=== PATIENT | female | born 1965 | race Caucasian/White ===

== ENCOUNTER → 2017-10-01 09:45 | Outpatient (CLI) | payer MEDICARE ==
[2017-10-01 10:18] LABS: BASOPHILS 0.8 % (0-2); EOSINOPHILS 3.4 % (0-7); HEMATOCRIT 45.7 % (36.0-48.0); HEMOGLOBIN 14.9 g/dL (12-16); IMMATURE GRANULOCYTES 0.4 % (0-5); LYMPHOCYTES 26.8 % (15-50); MCH 28.4 pg (26.0-34.0); MCHC 32.6 g/dL (31.0-37.0); MEAN PLATELET VOLUME 9.9 fL (7.4-10.4); MONOCYTES 6.9 % (2-11); NEUTROPHILS 61.7 % (40-80); PLATELET COUNT 355 10x3/uL (130-400); RBC 5.25 10x6/uL (4.00-5.40); WBC 14.3 10x3/uL (4.8-10.8)
[2017-10-01 10:44] LABS: ALBUMIN 3.5 g/dL (3.4-5.0); ANION GAP 18.1 mmol/L (8-16); BILIRUBIN - TOTAL 0.19 mg/dL (0.2-1.3); CALCIUM 8.8 mg/dL (8.5-10.1); CARBON DIOXIDE 22.3 mmol/L (21.0-32.0); CHOL - HDL RATIO 6.3 ratio (2.3-4.1); CREATININE - SERUM 1.1 mg/dL (0.6-1.3); POTASSIUM - SERUM 4.4 mmol/L (3.5-5.1); PROTEIN - SERUM 7.6 g/dL (6.4-8.2); T4 THYROXIN - FREE 0.84 ng/dL (0.76-1.46); T4 THYROXINE 7.7 ug/dL (4.7-13.3); THYROID STIMULATING HORMONE 8.73 uIU/mL (0.36-3.74)
== END | disposition home or self-care (01) ==
LOC: D.LAB 09-29 08:00
PROVIDERS: Family Medicine
DX: I10 Essential (primary) hypertension (principal); R10.9 Unspecified abdominal pain; E78.9 Disorder of lipoprotein metabolism, unspecified; E55.9 Vitamin D deficiency, unspecified; E11.9 Type 2 diabetes mellitus without complications; R11.2 Nausea with vomiting, unspecified; E03.9 Hypothyroidism, unspecified; E53.8 Deficiency of other specified B group vitamins

== ENCOUNTER → 2018-06-04 12:15 | Outpatient (CLI) | payer MEDICARE | END | disposition home or self-care (01) | LOC: D.RAD 12:15 | DX: M25.511 Pain in right shoulder (principal) ==

== ENCOUNTER → 2018-10-25 16:42 | Outpatient (CLI) | payer MEDICARE ==
[2018-10-25 17:41] LABS: BASOPHILS 0.7 % (0-2); EOSINOPHILS 3.9 % (0-7); HEMATOCRIT 43.3 % (36.0-48.0); HEMOGLOBIN 14.2 g/dL (12-16); IMMATURE GRANULOCYTES 0.2 % (0-5); LYMPHOCYTES 26.3 % (15-50); MCHC 32.8 g/dL (31.0-37.0); MCV 88.4 fL (80.0-100.0); MEAN PLATELET VOLUME 10.4 fL (7.4-10.4); MONOCYTES 5.8 % (2-11); NEUTROPHILS 63.1 % (40-80); PLATELET COUNT 323 10x3/uL (130-400); RDW 14.3 % (11.5-14.5); WBC 10.5 10x3/uL (4.8-10.8)
[2018-10-25 18:22] LABS: ALBUMIN 3.7 g/dL (3.4-5.0); ALKALINE PHOSPHATASE 118 U/L (46-116); ALT (SGPT) 21 U/L (10-68); BILIRUBIN - TOTAL 0.38 mg/dL (0.2-1.3); CALC OSMOLALITY 279 mosm/kg (275-300); CALCIUM 8.8 mg/dL (8.5-10.1); CARBON DIOXIDE 25.5 mmol/L (21.0-32.0); CHLORIDE - SERUM 103 mmol/L (98-107); CHOL - HDL RATIO 7.5 ratio (2.3-4.1); CHOLESTEROL, TOTAL 284 mg/dL (0-200); GLUCOSE 98 mg/dL (74-106); HDL CHOLESTEROL 38 mg/dL (32-96); POTASSIUM - SERUM 4.6 mmol/L (3.5-5.1); PROTEIN - SERUM 7.1 g/dL (6.4-8.2); SODIUM 139 mmol/L (136-145); T4 THYROXIN - FREE 0.89 ng/dL (0.76-1.46); THYROID STIMULATING HORMONE 3.43 uIU/mL (0.36-3.74); TRIGLYCERIDE 488 mg/dL (30-200); UREA NITROGEN 19 mg/dL (7-18); eGFR NON AFRICAN AMERICAN 61 mL/min (90-120)
[2018-10-25 18:45] LABS: ERYTHROCYTE SEDIMENTATION RATE 21 mm/hr (0-30)
== END | disposition home or self-care (01) ==
LOC: D.LABREF 16:42
PROVIDERS: ATTEND Family Medicine
DX: E03.9 Hypothyroidism, unspecified (principal); E55.9 Vitamin D deficiency, unspecified; E53.8 Deficiency of other specified B group vitamins; E11.9 Type 2 diabetes mellitus without complications; M79.7 Fibromyalgia

== ENCOUNTER → 2019-01-12 14:07 | Outpatient (CLI) | payer MEDICARE ==
[2019-01-12 15:30] LABS: T4 THYROXINE 12.4 ug/dL (4.7-13.3); THYROID STIMULATING HORMONE 0.19 uIU/mL (0.36-3.74)
== END | disposition home or self-care (01) ==
LOC: D.LABREF 14:07
PROVIDERS: ATTEND Family Medicine
DX: E11.9 Type 2 diabetes mellitus without complications (principal); E55.9 Vitamin D deficiency, unspecified; I10 Essential (primary) hypertension; E03.9 Hypothyroidism, unspecified

== ENCOUNTER 2019-01-22 16:30 | Inpatient (IN) | payer MEDICARE ==
[~2019-01-22] VITALS: Ht 165.1 cm; Wt 137.5 kg
[2019-01-22] VITALS (19 sets, daily range): BP systolic 98–123; BP diastolic 46–65; BMI 46.8
[2019-01-22] MEDS ORDERED: MORPHINE SULFAT30 M4 PO (16:40)
[2019-01-22] MEDS ORDERED: HYDROCHLOROTHIA25 MG PO (16:41)
[2019-01-22] MEDS ORDERED: VITAMIN D5000 UNIT PO (16:41)
[2019-01-22] MEDS ORDERED: ZANTAC300 MG PO (16:41)
[2019-01-22] MEDS ORDERED: HYDROCODONE-IB1 EAC3 PO (16:41)
[2019-01-22] MEDS ORDERED: PRISTIQ50 MG PO (16:42)
[2019-01-22] MEDS ORDERED: LISINOPRIL30 MG PO (16:42)
[2019-01-22] MEDS ORDERED: SYNTHROID175 MCG PO (16:42)
--- NOTE | 2019-01-22 17:02 | NUR ---
PATIENT PRESENTS VIA [facility] FROM [place], [place] ED - EMS REPORTS PT WAS TRANSPORTED TO [facility] FOR SUSPECTED BOWEL PERFERATION. ON ASSESSMENT PT IS DIAPHORETIC AND REPORTS FEELING NAUSEOUS - EMS REPORTS THAT PATIENT "VOMITED SEVERAL TIMES DURING TRANSPORT" PT PRESENTS WITH 22G IV THAT IS TRANSFUSION WITH NS BY GRAVITY AND NOREPINEPHRINE AT 16MCG/KG - ON ORIGINAL ASSESSMENT PT BP IS 99/52 WITH A MAP OF 58 - THIS NURSE INCREASED LEVOPHED TO 16 MCG/KG TO REACH MAP GOAL OF 65 WILL TITRATE NEEDED TO MAINTAIN GOAL. 1709 BP 90/48 LEVOPHED INCREASED TO 19 MCG/KG 1822 BP 95/45 LEVOPHED INCREASED TO 21 MCG/KG 1834 LEVOPHED INCREASED TO 30 MCG/KG - BP 108/54 WITH GOAL OF MAP OF 65 MET - WILL CONTINUE TO MONITOR. ON PRESENTATION - 16FR ROWLAND INSERTED USING STERILE TECHNIQUE IMMEDIATE RETURN OF CLOUDY CAMERON COLORED URINE APPROX 50 MLS - PT SISTER AT [facility] AND SHE COLLECTED PT BELONGINGS.
[2019-01-22 18:01] LABS: INR 1.13 (0.85-1.17)
[2019-01-22 18:02] LABS: APTT 35.5 SECONDS (22.8-39.4)
--- NOTE | 2019-01-22 18:43 | NUR ---
FLAGYL STOP TIME 1845
[2019-01-22] MEDS ORDERED: CYANOCOBAL1000 MCG/4 SC (20:15)
[2019-01-23] VITALS (113 sets, daily range): BP systolic 85–129; BP diastolic 40–703
--- NOTE | 2019-01-23 00:53 | NUR ---
PATIENT RESTING COMFORTABLY DENIES NEEDS
--- NOTE | 2019-01-23 01:31 | NUR ---
2100 PT RESTING IN BED TALKING TO FAMILY, NO DISTRESS NOTED. WILL CONT TO MON. 2300 PT REASSESSMENT COMPLETED AT THIS TIME NO DISTRESS NOTED 0100 PT RESTING WATCHING TV, RESP EVEN NON LABORED, WILL CONT TO MON FOR CHANGES
[2019-01-23 03:55] LABS: ALBUMIN 1.9 g/dL (3.4-5.0); ANION GAP 14.1 mmol/L (8-16); BILIRUBIN - TOTAL 0.62 mg/dL (0.2-1.3); CALCIUM 7.1 mg/dL (8.5-10.1); CARBON DIOXIDE 23.7 mmol/L (21.0-32.0); CREATININE - SERUM 1.4 mg/dL (0.6-1.3); POTASSIUM - SERUM 4.8 mmol/L (3.5-5.1); PROTEIN - SERUM 5.5 g/dL (6.4-8.2)
[2019-01-23 03:56] LABS: HEMATOCRIT 33.8 % (36.0-48.0); MCH 28.7 pg (26.0-34.0); MCHC 32.5 g/dL (31.0-37.0); MCV 88.3 fL (80.0-100.0); MEAN PLATELET VOLUME 9.7 fL (7.4-10.4); PLATELET COUNT 330 10x3/uL (130-400); RBC 3.83 10x6/uL (4.00-5.40); RDW 15.8 % (11.5-14.5)
[2019-01-23 03:57] LABS: WBC 39.6 10x3/uL (4.8-10.8)
--- NOTE | 2019-01-23 03:59 | NUR ---
0300 PT REASSESSMENT COMPLETED AT THIS TIME,NO DISTRESS NOTED. VSS STABLE AT THIS TIME TITRATING LEVOPHED DRIP PER ORDERES
[2019-01-23 04:29] LABS: EOSINOPHILS 2 % (0-7); LYMPHOCYTES 9 % (15-50); MONOCYTES 3 % (2-11); NEUTROPHILS 81 % (40-80)
[2019-01-23 04:34] LABS: SMUDGE CELLS OCC; SPHEROCYTES 1+
[2019-01-23 04:35] LABS: STOMATOCYTES OCC
[2019-01-23 04:36] LABS: PLATELET ESTIMATE NORMAL; PLATELET MORPHOLOGY GIANT PLTS PRESENT
--- NOTE | 2019-01-23 06:24 | NUR ---
0500 PT RESTING WITH EYES CLOSED RESP EVEN NON LABORED, VSS AT THSI TIME WILL CONT. TO MON. FOR CHANGES
--- NOTE | 2019-01-23 08:00 | NUR ---
UP IN BED AWAKE WATCHING TV AT THIS TIME. NO ACUTE DISTRESS NOTED. LEVOPHED TITRATED TO ORDER, SEE IV FLOWSHEET. CALL LIGHT IN REACH. WILL CONTINUE PLAN OF CARE.
--- NOTE | 2019-01-23 10:39 | NUR ---
NO ACUTE DISTRESS NOTED. NO CHANGE. CALL LIGHT IN REACH. WILL CONTINUE PLAN OF CARE.
[2019-01-23 10:53] LABS: % SATURATION 6 % (15-55); IRON 14 ug/dl (35-150); TOTAL IRON BIND CAPACITY 211 ug/dl (260-445); UNSAT IRON BIND CAPACITY 197 ug/dl (150-375)
--- NOTE | 2019-01-23 11:30 | NUR ---
PHARMACIST SPOKE WITH DR FREDERICK ON UNIT TO CLARIFY DILAUDID WHITEPRINTING MACHINE OPERATOR DOSAGE ORDERS. DR FREDERICK CONFIRMED THAT THE ORDER WAS ACCURATE.
--- NOTE | 2019-01-23 12:01 | NUR ---
LYING IN BED AWAKE AT THIS TIME. PT NOTED TO HAVE EPISODES OF ANXIETY AND TEARFULNESS. ABLE TO TALK WITH PT TO HELP HER CALM DOWN WELL USAGE OF TV FOR DISTRACTION TECHNIQUE. PT STATES SHE HAS A HISTORY OF ANXIETY. WILL NOTIFY DR BELCHER WHEN HE SEES PT. VSS. LEVOPHED TITRATED TO ORDER. WILL CONTINUE PLAN OF CARE.
[2019-01-23 12:43] LABS: APPEARANCE CLEAR (CLEAR); BILIRUBIN NEGATIVE (NEGATIVE); COLOR YELLOW (YELLOW); GLUCOSE NEGATIVE (NEGATIVE); KETONE SMALL mg/dL (NEGATIVE); NITRITE NEGATIVE (NEGATIVE); PROTEIN 1+ mg/dL (NEGATIVE); SPECIFIC GRAVITY 1.005 (1.005-1.020); UROBILINOGEN NORMAL (NORMAL)
[2019-01-23 12:45] LABS: BACTERIA NONE SEEN /hpf (NONE SEEN); EPITHELIAL CELLS 0-5 /hpf (0-5); RED CELLS - URINE 0-5 /hpf (0-5); WHITE CELLS - URINE 0-5 /hpf (0-5)
--- NOTE | 2019-01-23 14:31 | NUR ---
CHG BATH GIVEN AT THIS TIME WITH TOTAL LINEN CHANGE, AND ROWLAND CARE. AFTER BATH PROVIDED, PT COMPLAINT OF NAUSEA STATING SHE FELT LIKE THE WAS GOING TO THROW UP. PRN JERICA ADMIN, PT STATES SHE FEELS BETTER NOW. WILL CONTINUE PLAN OF CARE.
--- NOTE | 2019-01-23 14:35 | NUR ---
CLARIFICATION OF ORDER BY DR BELCHER: SURGEON INCREASED NS TO 175 ML/HR. DR BELCHER ORDERED PROCALAMINE TO RUN AT 50 ML/HR. SPOKE WITH DR BELCHER REGARDING RATES, HE STATED SINCE SURGEON WANTED PT TO HAVE FLUIDS GOING AT 175ML/HR TO RUN BOTH AT A RATE THAT TOGETHER EQUALS 175 ML/HR. NS DECREASED TO 125 ML/HR AND PROCALAMINE KEPT AT 50 ML/HR PER ORDERS TO EQUAL 175ML/HR. NO ACUTE DISTRESS NOTED. WILL CONTINUE PLAN OF CARE.
--- NOTE | 2019-01-23 16:36 | NUR ---
UP IN BED VISITING WITH FAMILY AT THIS TIME. NO ACUTE DISTRESS NOTED. VSS. LEVOPHED TITRATED TO ORDER, SEE IV FLOWSHEET. WILL CONTINUE PLAN OF CARE.
--- NOTE | 2019-01-23 18:36 | NUR ---
NO ACUTE DISTRESS NOTED. NO CHANGE. PT AWAKE WATCHING TV. CALL LIGHT IN REACH. WILL CONTINUE PLAN OF CARE.
--- NOTE | 2019-01-23 23:26 | NUR ---
1900 PT ASSESSMENT COMPLETED AT THIS TIME. PT ADVISED THAT SHE WAS FEELING BETTER AND HER PAIN WAS BETTER, NO DISTRESS NOTED AT THIS TIME. 2100 PT RESTING IN BED, NO CHANGES, VSS 2300 PT REASSESSMENT COMPLETED AT THSI TIME. NO CHANGED NOTED IN PT COND. WILL CONT TO MONITOR.
[2019-01-24] VITALS (43 sets, daily range): BP systolic 78–133; BP diastolic 34–85; Ht 165.1 cm; Wt 137.5 kg
--- NOTE | 2019-01-24 03:02 | NUR ---
0100 VSS, NO CHANGES NOTED IN PATIENT COND.
[2019-01-24 04:10] LABS: ANION GAP 12.6 mmol/L (8-16); CALCIUM 8.5 mg/dL (8.5-10.1); POTASSIUM - SERUM 4.6 mmol/L (3.5-5.1)
[2019-01-24 04:25] LABS: BASOPHILS 0.1 % (0-2); EOSINOPHILS 0.3 % (0-7); HEMATOCRIT 33.8 % (36.0-48.0); HEMOGLOBIN 10.7 g/dL (12-16); IMMATURE GRANULOCYTES 0.4 % (0-5); LYMPHOCYTES 5.6 % (15-50); MCH 28.7 pg (26.0-34.0); MCHC 31.7 g/dL (31.0-37.0); MCV 90.6 fL (80.0-100.0); MEAN PLATELET VOLUME 9.8 fL (7.4-10.4); MONOCYTES 4.1 % (2-11); NEUTROPHILS 89.5 % (40-80); PLATELET COUNT 320 10x3/uL (130-400); RBC 3.73 10x6/uL (4.00-5.40)
--- NOTE | 2019-01-24 07:00 | NUR ---
RECEIVED BEDSIDE REPORT ON PATIENT AND ASSUMED CARE. PATIENT ALERT AND ORIENTED X 4. PATIENT WITH LEVOPHED INFUSING AT 3 MCG/MIN TO LEFT FA. HEAD TO TOE ASSESMENT COMPLETED.
--- NOTE | 2019-01-24 07:05 | NUR ---
0500 PT RESTING IN BED, RESP EVEN NON LABORED, NO DISTRESS NOTED
--- NOTE | 2019-01-24 07:50 | NUR ---
PATIENT C/O NAUSEA PRN ZOFRAN GIVEN IVP PER AUG.
--- NOTE | 2019-01-24 08:37 | NUR ---
PATIENT TO CT VIA WHEELCHAIR FOR CT ABDOMEN.
--- NOTE | 2019-01-24 09:00 | NUR ---
PATIENT BACK FROM CT.
--- NOTE | 2019-01-24 11:14 | NUR ---
REASSESSMENT COMPLETED. VSS. LEVOPHED GTT OFF WITH BP 109/73 (96). IV TO RIGHT WRIST D/C AND IV TO L FA D/C. NEW IV 20 GA STARTED X 1 ATTEMPT TO RIGHT FA, POSITIVE BLOOD RETURN AND FLUSHES EASILY.
--- NOTE | 2019-01-24 12:57 | NUR ---
PATIENT C/O NAUSEA, ZOFRAN PRN GIVEN PER AUG.
--- NOTE | 2019-01-24 14:37 | NUR ---
PCT MARKO ASSISTS PATIENT WITH BATH.
--- NOTE | 2019-01-24 14:54 | NUR ---
REASSESSMENT COMPLETED. VSS. WILL CONTINUE TO MONITOR.
--- NOTE | 2019-01-24 15:46 | NUR ---
PER DR. FREDERICK PATIENT MAY HAVE ICE CHIPS AND HARD CANDY.
--- NOTE | 2019-01-24 16:25 | NUR ---
ROWLAND CATH DISCONTINUED.
--- NOTE | 2019-01-24 17:12 | NUR ---
PATIENT SITTING UP IN BEDSIDE CHAIR, FAMILY VISITING. GIVEN ICE CHIPS. VSS.
--- NOTE | 2019-01-24 18:13 | NUR ---
PATIENT TO BEDSIDE COMMODE, 200 CC CAMERON URINE OUTPUT. STATES NO BM OR PASSING OF GAS.
--- NOTE | 2019-01-24 19:00 | NUR ---
PT ASSESSMENT COMPLETED AT THIS TIME, PT RESTING IN BED, PT STATES THAT SHE FEELS MUCH BETTER TODAY. RESP EVEN NON LABORED, NO DISTRESS NOTED AT THIS TIME.
--- NOTE | 2019-01-24 21:04 | NUR ---
PT SITING UP IN CHAIR, NO DISTRESS NOTED. VSS
[2019-01-25] VITALS (16 sets, daily range): BP systolic 76–133; BP diastolic 50–83
--- NOTE | 2019-01-25 01:28 | NUR ---
2300 PT REASSESSMENT COMPLETED AT THIS TIME, NO CHANGES NOTED AT THIS TIME, VSS 0100 PT RESTING WITH EYES CLOSED, RESP EVEN NON LABORED, VSS
--- NOTE | 2019-01-25 03:20 | NUR ---
PT REASSESSMENT COMPLETED AT THIS TIME, NO CHANGES NOTED IN PT COND. VSS
[2019-01-25 04:40] LABS: BASOPHILS 0.2 % (0-2); EOSINOPHILS 0.4 % (0-7); HEMATOCRIT 30.9 % (36.0-48.0); HEMOGLOBIN 9.9 g/dL (12-16); IMMATURE GRANULOCYTES 0.4 % (0-5); LYMPHOCYTES 7.5 % (15-50); MCH 28.3 pg (26.0-34.0); MEAN PLATELET VOLUME 9.8 fL (7.4-10.4); MONOCYTES 7.2 % (2-11); NEUTROPHILS 84.3 % (40-80); PLATELET COUNT 321 10x3/uL (130-400); RDW 15.7 % (11.5-14.5)
[2019-01-25 04:55] LABS: MCV 88.3 fL (80.0-100.0); WBC 16.6 10x3/uL (4.8-10.8)
[2019-01-25 05:07] LABS: ANION GAP 11.9 mmol/L (8-16); CALCIUM 8.3 mg/dL (8.5-10.1); CARBON DIOXIDE 24.5 mmol/L (21.0-32.0); POTASSIUM - SERUM 4.4 mmol/L (3.5-5.1)
--- NOTE | 2019-01-25 07:00 | NUR ---
RECEIVED BEDSIDE REPORT AND ASSUMED CARE OF PATIENT. PATIENT AWAKE AND ALERT, LYING IN BED. VSS. HEAD TO TOE ASSESSMENT COMPLETED. IV 2O GA TO R FA INFUSING WITH NO S/S OF INFILTRATION. PROCAL AT 50 CC/HR AND NS AT 125 CC/HR. DILAUDID DIRECTOR SECURITY RISK MANAGEMENT WITH PATIENT RATING PAIN AT 4/10. STATES STILL HAS NAUSEA. EMPTIED 400 CC CAMERON COLORED URINE FROM BEDSIDE COMMODE. STATES HAS NOT HAD A BOWEL MOVEMENT AND HAS NOT PASSED GAS LATELY. BOWEL SOUNDS ACTIVE X 4. CM - SR. BBS CLEAR AND EQUAL, RRR.
--- NOTE | 2019-01-25 07:11 | NUR ---
0500 PT RESTING WITH EYES CLOSED, VSS, NO DISTRESS NOTED
--- NOTE | 2019-01-25 07:57 | NUR ---
DR. FREDERICK AT ROOM UPDATED AND EXAMINES PATIENT. OK TO TRANSFER TO FLOOR.
--- NOTE | 2019-01-25 09:04 | NUR ---
PATIENT SITTING UP AT BEDSIDE, VSS. READING BIBLE, NO NEEDS AT THIS TIME.
--- NOTE | 2019-01-25 09:29 | NUR ---
IV 20 GA STARTED TO LEFT WRIST, X 1 ATTEMPT WITH POSITIVE BLOOD WITHDRAW AND FLUSHES EASILY. PATIENT REQUESTED IV TO BE IN LEFT ARM TO FREE RIGHT ARM UP.
--- NOTE | 2019-01-25 09:43 | NUR ---
DR. ZAMORA AT ROOM UPDATED AND EXAMINES PATIENT. OK TO TRANSFER TO FLOOR.
--- NOTE | 2019-01-25 11:10 | NUR ---
REASSESSMENT COMPLETE. VSS. PATIENT RESTING IN BED.
--- NOTE | 2019-01-25 13:00 | NUR ---
PT RESTING IN BED. NO SIGNS OF DISTRESS NOTED. WILL CONTINUE TO MONITOR
--- NOTE | 2019-01-25 15:00 | NUR ---
PT SITTING UP IN BED. NO COMPLAINTS AT THIS TIME. NO DISTRESS NOTED. WILL CONTINUE TO MONITOR
--- NOTE | 2019-01-25 17:00 | NUR ---
PT RESTING IN BED. NO COMPLAINTS AT THIS TIME. WILL CONTINUE TO MONITOR
--- NOTE | 2019-01-25 19:36 | MORECARE ---
CASE MANAGEMENT DISCHARGE SUMMARY PATIENT: BETSY PERRY UNIT: [id number] ADM DATE: 01/22/19 AGE: 53 : 61 SEX: F ROOM/BED: D.2301 AUTHOR: ADWOA CASTILLO PHYSICIAN: REFERRING PHYSICIAN: RONALD BELCHER MD DATE OF SERVICE: 01/25/19 Discharge Plan Patient Name: BETSY PERRY Facility: [facility]:[place] : 1965 Planned Disposition: Home Anticipated Discharge Date: Discharge Date: Expected LOS: Initial Reviewer: [email or web address] Initial Review Date: 01/25/2019 Generated: 01/25/19 8:36 pm Patient Name: BETSY PERRY Page 00251 at 1936 All edits/amendments must be made on the electronic document DICTATION DATE: 01/25/191935 SPECIAL OFFICER AUTOMAT: JOANIE 01/25/191935 RPT#: [id number] DC DATE: STATUS: ADM IN [facility] [address] [place] [address] END OF REPORT
--- NOTE | 2019-01-25 19:43 | MORECARE ---
CASE MANAGEMENT DISCHARGE SUMMARY PATIENT: BETSY PERRY UNIT: [id number] ADM DATE: 01/22/19 AGE: 53 : 61 SEX: F ROOM/BED: D.2301 AUTHOR: ADWOA CASTILLO PHYSICIAN: REFERRING PHYSICIAN: RONALD BELCHER MD DATE OF SERVICE: 01/25/19 Discharge Plan Patient Name: BETSY PERRY Facility: [facility]:[place] : 1965 Planned Disposition: Home Anticipated Discharge Date: Discharge Date: Expected LOS: Initial Reviewer: [email or web address] Initial Review Date: 01/25/2019 Generated: 01/25/19 8:43 pm Comments DCP- Discharge Planning Updated by [email or web address]: Jessie Timmons on 01/25/19 6:[address] Patient Name: BETSY PERRY Admission Status: ER Accout number: [id number] Admission Date: 01-22-2019 : 1965 Admission Diagnosis:SEPSIS, UNSPECIFIED ORGANISM Attending: RONALD BELCHER Current LOS: 3 Anticipated DC Date: Planned Disposition: Home Primary Insurance: MEDICARE A & B Discharge Planning Comments: CM met with patient to complete initial dc planning assessment. CM educated patient on the CM role and verbal consent given by patient to complete assessment. Patient lives at home alone where she is independent with her care. At discharge patient plans to return home and feels this is a safe discharge. CM discussed availability of home health, rehab services, and medical equipment. She will have family drive her home upon discharge. Patient denied known discharge needs at this time. CM will continue to follow and will assist as needed with dc plans/needs. Reconciling Clerk: Jessie Timmons DCPIA - Discharge Planning Initial Assessment Updated by [email or web address]: Jessie Timmons on 01/25/19 7:36 pm * Is the patient Alert and Oriented? Yes * How many steps to enter\exit or inside your home? * PCP ABDULALHI * Pharmacy [facility] * Preadmission Environment Home Alone * ADLs Independent * List name and contact numbers for known caregivers / representatives who currently or will assist patient after discharge: [facility] [phone] * Verbal permission to speak to the caregivers and representatives has been obtained from the patient. N/A * Community resources currently utilized None * Additional services required to return to the preadmission environment? No * Can the patient safely return to the preadmission environment? Yes * Has this patient been hospitalized within the prior 30 days at any hospital? No Last DP export: 01/25/19 6:36 p Patient Name: BETSY PERRY Page [phone] at 1943 All edits/amendments must be made on the electronic document DICTATION DATE: 01/25/191942 RESEARCH AIDE: JOANIE 01/25/191942 RPT#: [id number] DC DATE: STATUS: ADM IN [facility] [address] [place] [address] END OF REPORT
[2019-01-26 03:00] VITALS: BP 123/65
[2019-01-26 04:52] LABS: CALC OSMOLALITY 277 mosm/kg (275-300); CALCIUM 8.8 mg/dL (8.5-10.1); CARBON DIOXIDE 23.9 mmol/L (21.0-32.0); CHLORIDE - SERUM 105 mmol/L (98-107); CREATININE - SERUM 0.8 mg/dL (0.6-1.3); GLUCOSE 73 mg/dL (74-106); POTASSIUM - SERUM 4.4 mmol/L (3.5-5.1); SODIUM 140 mmol/L (136-145); UREA NITROGEN 13 mg/dL (7-18); eGFR NON AFRICAN AMERICAN 79 mL/min (90-120)
[2019-01-26 04:53] LABS: BASOPHILS 0.2 % (0-2); EOSINOPHILS 0.7 % (0-7); HEMATOCRIT 33.8 % (36.0-48.0); HEMOGLOBIN 11.1 g/dL (12-16); IMMATURE GRANULOCYTES 0.6 % (0-5); LYMPHOCYTES 12.2 % (15-50); MCH 28.9 pg (26.0-34.0); MCHC 32.8 g/dL (31.0-37.0); MEAN PLATELET VOLUME 10.1 fL (7.4-10.4); MONOCYTES 6.6 % (2-11); NEUTROPHILS 79.7 % (40-80); PLATELET COUNT 351 10x3/uL (130-400); RBC 3.84 10x6/uL (4.00-5.40); RDW 15.6 % (11.5-14.5); WBC 13.7 10x3/uL (4.8-10.8)
[2019-01-26 07:00] VITALS: BP 123/65
--- NOTE | 2019-01-26 07:00 | NUR ---
PT REPORT RECEIVED FROM HEATER PLANER OPERATOR NURSE. PT CURRENTLY HAS NO COMPLAINTS. WILL CONTINUE TO MONITOR
--- NOTE | 2019-01-26 07:48 | NUR ---
Nutrition follow-up: Pt continues NPO ProcalAmine PPN infusing @ 50 ml/hr Labs reviewed Wt: 289# Recommend increasing ProcalAmine PPN to 125 ml/hr with 20% 250 ml intralipids daily to better meet pts estimated energy needs. Also recommend checking triglycerides before starting lipids. RDN following.
--- NOTE | 2019-01-26 09:00 | NUR ---
PT RESTING IN BED. VSS. WILL CONTINUE TO MONITOR
--- NOTE | 2019-01-26 11:00 | NUR ---
PT RESTING IN BED. BEDSIDE COMMODE NEXT TO BED FOR PT USE. VSS. NO COMPLAINTS AT THIS TIME. WILL CONTINUE TO MONITOR
--- NOTE | 2019-01-26 13:00 | NUR ---
PT LYING IN BED RESTING. FAMILY AT BEDSIDE. WILL CONTINUE TO MONITOR
--- NOTE | 2019-01-26 15:04 | NUR ---
REPORT CALLED TO [email or web address], PT TRANSFERRED VIA WHEELCHAIR
--- NOTE | 2019-01-26 16:30 | NUR ---
PT RECEIVED FROM ICU, IV ANTIBIOTIC HUNG VIA PIGGYBACK. PROVIDED PT WITH NEW GOWN AND SITUATED PT IN BED. PT IS ALERT AND ORIENTED, AMBULATES WITHOUT ASSISTANCE. PT HAS IV TO LEFT FOREARM. RIGHT FOREARM IV D/C DUE TO INFILTRATION AND SWELLING. CATHETER TIP IN TACT. REQUESTED JELLO, PROVIDED PROMPTLY. DENIES OTHER NEEDS. BED IN LOWEST POSITION, BED RAILS X2, CALL LIGHT WITHIN REACH. WILL CTM.
--- NOTE | 2019-01-26 17:53 | MORECARE ---
CASE MANAGEMENT DISCHARGE SUMMARY PATIENT: BETSY PERRY UNIT: [id number] ADM DATE: 01/22/19 AGE: 53 : 61 SEX: F ROOM/BED: D.1211 AUTHOR: ADWOA CASTILLO PHYSICIAN: REFERRING PHYSICIAN: RONALD BELCHER MD DATE OF SERVICE: 01/26/19 Discharge Plan Patient Name: BETSY PERRY Facility: [facility]:[place] : 1965 Planned Disposition: Home Anticipated Discharge Date: Discharge Date: Expected LOS: Initial Reviewer: [email or web address] Initial Review Date: 01/25/2019 Generated: 01/26/19 6:53 pm Comments DCP- Discharge Planning Updated by [email or web address]: Jessie Timmons on 01/25/19 6:[address] Patient Name: BETSY PERRY Admission Status: ER Accout number: [id number] Admission Date: 01-22-2019 : 1965 Admission Diagnosis:SEPSIS, UNSPECIFIED ORGANISM Attending: RONALD BELCHER Current LOS: 3 Anticipated DC Date: Planned Disposition: Home Primary Insurance: MEDICARE A & B Discharge Planning Comments: CM met with patient to complete initial dc planning assessment. CM educated patient on the CM role and verbal consent given by patient to complete assessment. Patient lives at home alone where she is independent with her care. At discharge patient plans to return home and feels this is a safe discharge. CM discussed availability of home health, rehab services, and medical equipment. She will have family drive her home upon discharge. Patient denied known discharge needs at this time. CM will continue to follow and will assist as needed with dc plans/needs. Petroleum Refining Firer: Jessie Timmons DCPIA - Discharge Planning Initial Assessment Updated by [email or web address]: Jessie Timmons on 01/25/19 7:36 pm * Is the patient Alert and Oriented? Yes * How many steps to enter\exit or inside your home? * PCP ABDULLAHI * Pharmacy [facility] * Preadmission Environment Home Alone * ADLs Independent * List name and contact numbers for known caregivers / representatives who currently or will assist patient after discharge: [facility] [phone] * Verbal permission to speak to the caregivers and representatives has been obtained from the patient. N/A * Community resources currently utilized None * Additional services required to return to the preadmission environment? No * Can the patient safely return to the preadmission environment? Yes * Has this patient been hospitalized within the prior 30 days at any hospital? No Last DP export: 01/25/19 6:43 p Patient Name: BETSY PERRY Page 42747 at 1753 All edits/amendments must be made on the electronic document DICTATION DATE: 01/26/191752 HISTOLOGIC AIDE: JOANIE 01/26/191752 RPT#: [id number] DC DATE: STATUS: ADM IN [facility] [address] [place] [address] END OF REPORT
[2019-01-26 18:11] VITALS: BP 127/69
--- NOTE | 2019-01-26 18:29 | NUR ---
ASSESSED VITALS AT THIS TIME, VSS. DENIES OTHER NEEDS, RESTING COMFORTABLY IN BED. WILL CTM.
--- NOTE | 2019-01-26 19:10 | NUR ---
EVENING ROUNDS COMPLETE. PT IS SITTING UP IN BED, NO SIGNS OF DISTRESS. VSS, PT IS IN PAIN 5/10, BUT CLAIMS THAT IT IS TOLERABLE. CL IN REACH, BED IN LOWEST POSITION, CONT WITH POC.
[2019-01-26 20:39] VITALS: BP 128/81
[2019-01-26 23:51] VITALS: BP 133/75
--- NOTE | 2019-01-27 01:07 | NUR ---
CONTACTED BELLA PHILIP ABOUT PT REDNESS AROUND IV, BELLA PHILIP ORDERED TO HOLD IV PROCALAMINE AND TO CHANGE LAST 2 DOSES OF FLAGYL TO PO. WILL CONT WITH POC.
[2019-01-27 04:07] VITALS: BP 135/76
[2019-01-27 07:21] LABS: BASOPHILS 0.6 % (0-2); EOSINOPHILS 1.2 % (0-7); HEMATOCRIT 33.7 % (36.0-48.0); HEMOGLOBIN 11.3 g/dL (12-16); IMMATURE GRANULOCYTES 1.4 % (0-5); LYMPHOCYTES 14.7 % (15-50); MCH 28.8 pg (26.0-34.0); MCHC 33.5 g/dL (31.0-37.0); MEAN PLATELET VOLUME 9.6 fL (7.4-10.4); MONOCYTES 9.5 % (2-11); NEUTROPHILS 72.6 % (40-80); PLATELET COUNT 389 10x3/uL (130-400); RBC 3.93 10x6/uL (4.00-5.40); RDW 15.5 % (11.5-14.5); WBC 14.5 10x3/uL (4.8-10.8)
[2019-01-27 07:23] LABS: CALC OSMOLALITY 280 mosm/kg (275-300); CARBON DIOXIDE 25.8 mmol/L (21.0-32.0); CHLORIDE - SERUM 106 mmol/L (98-107); CREATININE - SERUM 0.8 mg/dL (0.6-1.3); GLUCOSE 88 mg/dL (74-106); POTASSIUM - SERUM 4.1 mmol/L (3.5-5.1); SODIUM 141 mmol/L (136-145); UREA NITROGEN 14 mg/dL (7-18); eGFR NON AFRICAN AMERICAN 79 mL/min (90-120)
[2019-01-27 07:24] LABS: MCV 85.8 fL (80.0-100.0)
--- NOTE | 2019-01-27 07:51 | NUR ---
ROUNDING DONE WITH PATIENT LAYING ON LEFT SIDE, STATES THAT SHE IS FEELING BETTER "A LITTLE". ON ROOM AIR. OBESE. LEFT FA PIV SEEN WITH SALINE LOCK. PATIENT STATES IT IS VERY TENDER WITH PALPATION. I CALLED ZOHREH MARQUEZ, INTERMEDIATE PROJECT MANAGER NURSE TO SEE IF SHE CAN RE-SITE IV. LEFT MESSAGE PATIENT IS A VERY HARD STICK. ON EP, K+ IS 4.1.
[2019-01-27 08:01] VITALS: BP 109/57
--- NOTE | 2019-01-27 09:31 | NUR ---
ZOHREH MARQUEZ RN HERE TO PLACE MIDLINE.
--- NOTE | 2019-01-27 09:41 | NUR ---
OTHER CUP OF MIRALAX THROWN AWAY WHEN ZOHREH MARQUEZ RN WAS PLACING HER MIDLINE.
--- NOTE | 2019-01-27 09:51 | NUR ---
SALINE LOCK TO LEFT WRIST AREA REMOVED WITH CATH TIP INTACT.
[2019-01-27 15:35] VITALS: BP 130/64
--- NOTE | 2019-01-27 16:57 | NUR ---
WALKED INTO ROOM TO GIVE PATIENT HER IV IRON. MIGUEL IS SHIVERING IN BED. EARLIER VITAL SIGNS WERE GOOD. ORAL TEMP IS 99.4.
--- NOTE | 2019-01-27 17:01 | NUR ---
NEW ORDERS FROM DR KNOX. PATIENT DOES NOT WANT TO TAKE HER IV IRON UNTIL HER BOWELS CLEAR UP SOME.
--- NOTE | 2019-01-27 20:15 | NUR ---
CHECKED PT TEMP 99.4
--- NOTE | 2019-01-27 23:56 | NUR ---
CHECKED PT TEMP 99.3
[2019-01-28] VITALS (9 sets, daily range): BP systolic 111–170; BP diastolic 51–94
--- NOTE | 2019-01-28 02:13 | NUR ---
REST QUIETLY IN BED. EYE CLOSE, CALL LIGHT IN REACH.
--- NOTE | 2019-01-28 02:20 | NUR ---
I have reviewed this patient and I concur with the Shift Assessment completed by the Licensed Practical Nurse today this shift.
--- NOTE | 2019-01-28 05:52 | NUR ---
CHECKED PT TEMP 99.4 CONTINUE MONITOR CLOSELY.
[2019-01-28 07:08] LABS: ANION GAP 14.4 mmol/L (8-16); CALCIUM 8.7 mg/dL (8.5-10.1); CARBON DIOXIDE 25.1 mmol/L (21.0-32.0); POTASSIUM - SERUM 4.5 mmol/L (3.5-5.1)
[2019-01-28 07:11] LABS: HEMATOCRIT 36.5 % (36.0-48.0); HEMOGLOBIN 12.3 g/dL (12-16); MCH 29.4 pg (26.0-34.0); MCHC 33.7 g/dL (31.0-37.0); MCV 87.1 fL (80.0-100.0); MEAN PLATELET VOLUME 9.7 fL (7.4-10.4); PLATELET COUNT 421 10x3/uL (130-400); RBC 4.19 10x6/uL (4.00-5.40); RDW 15.7 % (11.5-14.5); WBC 32.4 10x3/uL (4.8-10.8)
--- NOTE | 2019-01-28 07:19 | NUR ---
ROUNDING DONE WITH PATIENT STATING THAT SHE STILL DOES NOT FEEL GOOD THIS AM. WENT 3 LOOSE BM'S LAST NIGHT. ON ROOM AIR. OBESE ABDOMEN. LEFT UPPER ARM MIDLINE SEEN WITH ANTIBIOTICS INFUSING. ON EP, K+ IS 4.5. WBC IS 32.4 THIS AM. PATIENT RAN LOW TEMP ALL NIGHT. PAGE INTO CARLYN GARCIA APN FOR TO LET HER BE AWARE OF THIS. I ORDERED A LATIC ACID ON HER ONE HAS NOT BEEN DONE. AAITING CALL BACK.
--- NOTE | 2019-01-28 08:59 | NUR ---
0852-DR FREDERICK HERE TO SEE PATIENT. PATIENT IS GOING TO SURGERY THIS AFTERNOON. MADE NPO.
[2019-01-28 10:02] LABS: LYMPHOCYTES 6 % (15-50); MONOCYTES 6 % (2-11); NEUTROPHILS 77 % (40-80); PLATELET ESTIMATE NORMAL
--- NOTE | 2019-01-28 15:06 | MORECARE ---
CASE MANAGEMENT DISCHARGE SUMMARY PATIENT: BETSY PERRY UNIT: [id number] ADM DATE: 01/22/19 AGE: 53 : 61 SEX: F ROOM/BED: D.1211 AUTHOR: ADWOA CASTILLO PHYSICIAN: REFERRING PHYSICIAN: RONALD BELCHER MD DATE OF SERVICE: 01/28/19 Discharge Plan Patient Name: BETSY PERRY Facility: [facility]:[place] : 1965 Planned Disposition: Home Anticipated Discharge Date: Discharge Date: Expected LOS: Initial Reviewer: [email or web address] Initial Review Date: 01/25/2019 Generated: 01/28/19 4:05 pm Comments DCP- Discharge Planning Updated by [email or web address]: Jessie Timmons on 01/28/19 1:[address] CM came and spoke with patient regarding rolling walker for home use. Patient stated she had no preference for DME but she also stated that she was having surgery later today and would be in ICU post-op and doesn't want a walker brought to hospital until closer to discharge. YAJAIRA signed for no preference in DME. CM will continue to follow and assist as needed with discharge planning / needs. DCP- Discharge Planning Updated by [email or web address]: Jessie Timmons on 01/25/19 6:[address] Patient Name: BETSY PERRY Admission Status: ER Accout number: [id number] Admission Date: 01-22-2019 : 1965 Admission Diagnosis:SEPSIS, UNSPECIFIED ORGANISM Attending: RONALD BELCHER Current LOS: 3 Anticipated DC Date: Planned Disposition: Home Primary Insurance: MEDICARE A & B Discharge Planning Comments: CM met with patient to complete initial dc planning assessment. CM educated patient on the CM role and verbal consent given by patient to complete assessment. Patient lives at home alone where she is independent with her care. At discharge patient plans to return home and feels this is a safe discharge. CM discussed availability of home health, rehab services, and medical equipment. She will have family drive her home upon discharge. Patient denied known discharge needs at this time. CM will continue to follow and will assist as needed with dc plans/needs. Compliance Review Specialist: Jessie Timmons DCPIA - Discharge Planning Initial Assessment Updated by [email or web address]: Jessie Timmons on 01/25/19 7:36 pm * Is the patient Alert and Oriented? Yes * How many steps to enter\exit or inside your home? * PCP ABDULLAHI * Pharmacy [facility] * Preadmission Environment Home Alone * ADLs Independent * List name and contact numbers for known caregivers / representatives who currently or will assist patient after discharge: [facility] - [facility]- [phone] * Verbal permission to speak to the caregivers and representatives has been obtained from the patient. N/A * Community resources currently utilized None * Additional services required to return to the preadmission environment? No * Can the patient safely return to the preadmission environment? Yes * Has this patient been hospitalized within the prior 30 days at any hospital? No Last DP export: 01/26/19 4:53 p Patient Name: BETSY PERRY Page [id number] at 1506 All edits/amendments must be made on the electronic document DICTATION DATE: 01/28/19 1505 DIRECTOR OF LEADERSHIP DEVELOPMENT: JOANIE 01/28/19 1505 RPT#: [id number] DC DATE: STATUS: ADM IN [facility] [address] [place] [address] END OF REPORT
--- NOTE | 2019-01-28 15:48 | NUR ---
TO SURGERY VIA BED.
--- NOTE | 2019-01-28 19:10 | NUR ---
RECEIVED PATIENT FROM OR, REPORT RECEIVED AT BEDSIDE. RECEIVED PATIENT SEDATED/INTUBATED. ETT INTACT/SECURE/PATENT AND CONNECTED TO [facility] VENT. MONITORS CONNECTED TO PATIENT WITH ALARMS SET. VSS. SHIFT ASSSESSMENT COMPLETED PER FLOW SHEET WITH NO ACUTE DISTRESS OBSERVED.
--- NOTE | 2019-01-28 19:30 | NUR ---
DR. ROSE AT BEDSIDE. NEW ORDERS RECEIVED.
--- NOTE | 2019-01-28 19:50 | NUR ---
SPOKE WITH DR. YUEN. NEW ORDERS RECEIVED.
--- NOTE | 2019-01-28 21:00 | NUR ---
RESTING WITH EYES CLOSED, ROUSES EASILY. VSS
[2019-01-29] VITALS (24 sets, daily range): BP systolic 105–145; BP diastolic 47–98
--- NOTE | 2019-01-29 07:15 | NUR ---
AWAKES EASILY TO VERBAL STIMULI, MOVES TOES ON REQUEST, HANDS SSAS DEVELOPER EQUAL. NODES TO YES AND NO QUESTIONS. ETT SECURE TO VENT. NG CLAMPED. UNABLE TO PASS AIR BOLUS DOWN NG TUBE. NG TUBE PULLED BACK, 3 KINKS FOUND, NG TUBE REMOVED AND REPLACED. 16 UZBEK PASSED DOWN LEFT NARES WITHOUT DIFFICULTY, AIR BOLUS AUDIBLE IN ABD, PATIENT TOLERATED WELL. NO DISTRESS. HANY DRAIN FULL WITH SERSANG DRAINAGE. EMPTIED 75 ML. ABD DRESSING DRY AND INTACT. HEAD OF BED ELEVATED 30 DEGREES. GOOD COUGH REFLEX. ROWLAND CATH PATENT DRAINING DARK BROWN URINE. MONITOR SR. NG TO GRAVITY DRAINAGE. LEFT UPPER ARM MIDLINE INFUSING WITH NS AT 150 ML HOUR, DIPRIVAN AT 15 MCG/KG/MIN. FENTANYL 50 MCG/HOUR. RESTING COMFORTABLY
[2019-01-29 07:49] LABS: HEMATOCRIT 36.6 % (36.0-48.0); HEMOGLOBIN 12.2 g/dL (12-16); MCH 28.8 pg (26.0-34.0); MCHC 33.3 g/dL (31.0-37.0); MCV 86.3 fL (80.0-100.0); MEAN PLATELET VOLUME 9.5 fL (7.4-10.4); PLATELET COUNT 354 10x3/uL (130-400); RBC 4.24 10x6/uL (4.00-5.40); RDW 15.6 % (11.5-14.5); WBC 22.9 10x3/uL (4.8-10.8)
[2019-01-29 08:10] LABS: LYMPHOCYTES 8 % (15-50); MONOCYTES 1 % (2-11); NEUTROPHILS 77 % (40-80); PLATELET ESTIMATE NORMAL
[2019-01-29 08:14] LABS: ANION GAP 18.6 mmol/L (8-16); CALCIUM 7.7 mg/dL (8.5-10.1); CARBON DIOXIDE 19.5 mmol/L (21.0-32.0); CREATININE - SERUM 0.9 mg/dL (0.6-1.3); POTASSIUM - SERUM 5.1 mmol/L (3.5-5.1)
--- NOTE | 2019-01-29 09:00 | NUR ---
SUCTIONED CLEAR SPUTUM PER ETT AND MOUTH TOLERATES FAIR
--- NOTE | 2019-01-29 10:07 | NUR ---
SEDATION TURNED OFF ON CPAP ON VENT. TOLERATING WELL AT THIS TIME. FAMILY HERE UPDATE GIVEN. DR. YUEN HERE TALKED WITH FAMILY. DIPIVAN AND FENTANYL TURNED OFF
--- NOTE | 2019-01-29 10:26 | NUR ---
EXTUBATED PER RESP THERAPY. GOOD COUGH REFLEX NO RESP DISTRESS. RESP DEEP AND REGULAR. INSTRUCTED ON HOW TO USE YANKEUR.
--- NOTE | 2019-01-29 10:40 | NUR ---
REPOSITIONED IN BED FOR COMFORT
--- NOTE | 2019-01-29 10:40 | NUR ---
DILAUDID INTEGRITY ASSESSOR SET UP PER PATIRNT REQUEST FOR BACK PAIN RATED A "10", VERBALIZED UNDERSTANDIBNG USE OF INTEGRITY ASSESSOR
--- NOTE | 2019-01-29 12:00 | NUR ---
NO RESP DISTRESS. GOOD COUGHING AND DEEP BREATHING. ENCOURAGE TO TURN AND MOVE SELF IN BED. PAIN IMPROVING. ABD DRESSING DRY AND INTACT. HANY DRAIN WITH SMALL AMOUNT OF SERSAG DRAINAGE.
--- NOTE | 2019-01-29 13:37 | NUR ---
FAMILY AT BEDSIDE NO DISTRESS. PAIN IMPROVING, MORE COMFORTABLE NOW. USING CAREGIVERS NON MEDICAL
--- NOTE | 2019-01-29 15:00 | NUR ---
PATIENT TURNING SELF FROM SIDE. USING DILAUDID COMPLEX DIRECTOR WITHOUT DIFFICULTY. BOLUS GIVEN ONCE. STATES PAIN IS TOLERABLE. ABD DRESSING REINFORCED AT BOTTOM OF ABD. LEAKING SERSANG DRAINAGE. HANY DRAIN MORE SEROUS.BULB COMPRESSED. ROWLAND CATH PATENT NO RESP DISTRESS. COUGHING AND DEEP BREATHING. HANY DRAIN TO LOW INTERMITTENT SUCTION
--- NOTE | 2019-01-29 16:00 | NUR ---
DR. ROSE HERE. ORDERS RECEIVED. OK TO HAVE ICE CHIPS. NG TO LOW INTERMITTENT SUCTION. MAY GET UP IN CHAIR IF SHE IS ABLE. PATIENT ASKED IF SHE COULD GET UP. NO DISTRESS. RESP NON LABORED. ON ROOM AIR.
--- NOTE | 2019-01-29 17:00 | NUR ---
SAT ON SIDE OF BED. TRIED TO STAND UP, BUT SAT BACK DOWN QUICKLY AND DOES NOT WANT TO GET UP INCHAIR AT THIS TIME. GOOD COUGH AND DEEP BREATHING.
--- NOTE | 2019-01-29 18:20 | NUR ---
COLOSTOMY BACK LEAKING BROWN LIQUID STOOL. NEW BAG AND WAVIER APPLIED. LINEN CHANGED. PATIENT TURNED SELF FROM SIDE TO SIDE. NO RESP DISTRESS. TOLERATED WELL. STATES SHE IS TIRED.
--- NOTE | 2019-01-29 19:20 | NUR ---
Received patient resting in bed with eyes open, assessment completed per flowsheet. Patient AO x4, calm and cooperative. NGT to LIWS, small white drainage noted. S1/S2 noted NSR on telemetry, rythmic and regular. Breathing is shallow/unlabored on room air with O2 sat 97%, lung sounds clear throughout. Abdomen is round/soft with bowel sounds hypoactive x4, tender. Ostomy site clean with red granulated tissue, bag secured. Incision x2 well approximated, HANY x1 with small serous drainage. Slight weakness noted bilateral lower, all pulses palpable with cap refill < 3 sec. AUTOMOTIVE PARTS INTERPRETER in use for pain mgmt, denies further needs at this time. See flowsheet for details, all VSS and will continue to monitor.
--- NOTE | 2019-01-29 21:00 | NUR ---
Patient resting in bed with eyes open and family at bedside for visitation, discussed current status/treatment with all questions answered to satisfaction. Denies needs at this time, all VSS and will continue to monitor.
--- NOTE | 2019-01-29 23:05 | NUR ---
Reassessment completed per flowsheet, no changes noted from previous assessment. Ostomy site red/granulated, colostomy bag secured. Abdominal incision x2 well approximated, HANY X1 with small serosanguinous drainage. CARTOGRAPHY TECHNICIAN in use for pain mgmt, denies further needs at this time. See flowsheet for details, all VSS and will continue to monitor.
[2019-01-30] VITALS (20 sets, daily range): BP systolic 116–151; BP diastolic 62–86
--- NOTE | 2019-01-30 01:10 | NUR ---
Patient sleeping in bed with eyes closed, no s/s of distress at this time. No further needs at this time, all VSS and will continue to monitor.
--- NOTE | 2019-01-30 03:00 | NUR ---
Reassessment completed per flowsheet, no changes noted from previous assessment. S1/S2 noted NSR on telemetry, rythmic and regular. Breathing is even/unlabored on room air with O2 sat 97%, lung sounds clear throughout. Abdomen is obese/soft with bowel soudns hypoactive x4, tender. Ostomy site is red/granulated, colostomy bag secured. HANY x1 with small serosanguinous drainage, compressed with dressing CDI. MACHINE II TRIMMER in use for pain mgmt, no further needs at this time. See flowsheet for details, all VSS and will continue to monitor.
--- NOTE | 2019-01-30 05:00 | NUR ---
Patient resting in bed with eyes closed, no s/s of distress at this time. Patient declined bath at this time, stated she would prefer a bath later. Will make dayshift RN aware, no further needs and will continue to monitor.
--- NOTE | 2019-01-30 07:15 | NUR ---
AWAKE AND ALERT SKIN WARM AND DRY. ABD DRESSING DRY AND INTACT. HANY DRAIN COMPRESSED. COLOSTOMY WITH LIQUID BROWN STOOL IN BAG. FIRMWARE ARCHITECT BUTTON WITHIN HANDS REACH. NURSE CALL LIGHT WITHIN HANDS REACH. LEFT UPPER ARM MIDLINE INFUISNG WITH NS AT 150 ML HOUR. STATES PAIN IS A 6. HEAD OF BED FLAT. SCD ON LOWER LEGS. NO RESP DISTRESS. RESP DEEP AND REGULAR. MONITOR SR. NG TO LOW INTERMITTENT SUCTION WITH MINMAL GREEN LIQUID IN TUBING.
[2019-01-30 07:17] LABS: BASOPHILS 0.4 % (0-2); EOSINOPHILS 1.4 % (0-7); HEMOGLOBIN 10.5 g/dL (12-16); IMMATURE GRANULOCYTES 1.1 % (0-5); LYMPHOCYTES 6.1 % (15-50); MCH 28.7 pg (26.0-34.0); MCHC 32.8 g/dL (31.0-37.0); MCV 87.4 fL (80.0-100.0); MEAN PLATELET VOLUME 9.5 fL (7.4-10.4); MONOCYTES 3.7 % (2-11); NEUTROPHILS 87.3 % (40-80); PLATELET COUNT 392 10x3/uL (130-400); RBC 3.66 10x6/uL (4.00-5.40); RDW 15.7 % (11.5-14.5); WBC 19.3 10x3/uL (4.8-10.8)
[2019-01-30 07:23] LABS: CALC OSMOLALITY 276 mosm/kg (275-300); CALCIUM 7.8 mg/dL (8.5-10.1); CARBON DIOXIDE 23.8 mmol/L (21.0-32.0); CHLORIDE - SERUM 107 mmol/L (98-107); CREATININE - SERUM 0.7 mg/dL (0.6-1.3); GLUCOSE 83 mg/dL (74-106); SODIUM 139 mmol/L (136-145); UREA NITROGEN 13 mg/dL (7-18); eGFR NON AFRICAN AMERICAN > 90 mL/min (90-120)
--- NOTE | 2019-01-30 11:00 | NUR ---
COLOSTOMY BAG LEAKING STOOL. COMPLETE HIBCLENS BATH GIVEN. COLOSTOMY BAG CHANGED.LINEN CHANGED. PATIENT TOLERATED FAIR. BOLUS PAIN MEDS GIVEN WHILE CHANGING LINEN. ROWLAND CATH CARE DONE. ABD INCISION INTACT. NO SKIN BREAKDOWN NOTED. PATIENT HAS TO KEEP A PILLOW ON LOWER BACK FOR PAIN CONTROL. NG TO LOW INTERMITTENT SUCTION WITH GREEN LIQUID DRAINAGE. ROWLAND CATH PATENT URINE GREEN
--- NOTE | 2019-01-30 19:30 | NUR ---
REC'D TO CARE, TELECOM BILLING ANALYST PER FLOWSHEET. PT ALERT AND ORIENTED. VSS. PT REPORTS ADEQUATE PAIN RELIEF WITH SOFT WORK WRAPPER EXAMINER. IVF INFUSING TO L MIDLINE, DSG C/D/I - SEE FLOWSHEET. ALARMS ON. PT HAS ICE CHIPS. C/L IN REACH.
--- NOTE | 2019-01-30 19:40 | NUR ---
PT MOVED TO ROOM 2310 VIA BED.
--- NOTE | 2019-01-30 21:15 | NUR ---
NO VISITORS, PT WATCHING TV. C/L IN REACH.
--- NOTE | 2019-01-30 22:10 | NUR ---
PT DANGLED AT BS, MINIMAL ASSIST REQUIRED, GOOD COUGH.
--- NOTE | 2019-01-31 | NUR ---
PT ABLE TO SHIFT WEIGHT AND CHANGE HOB INDEPENDENTLY, NO SIGN OF DISTRESS.
[2019-01-31 03:00] VITALS: BP 147/87
[2019-01-31 03:52] LABS: HEMATOCRIT 29.7 % (36.0-48.0); HEMOGLOBIN 9.8 g/dL (12-16); MCH 28.2 pg (26.0-34.0); MCV 85.6 fL (80.0-100.0); PLATELET COUNT 459 10x3/uL (130-400); RBC 3.47 10x6/uL (4.00-5.40); RDW 15.7 % (11.5-14.5); WBC 15.3 10x3/uL (4.8-10.8)
[2019-01-31 03:53] LABS: CALC OSMOLALITY 272 mosm/kg (275-300); CALCIUM 7.6 mg/dL (8.5-10.1); CARBON DIOXIDE 20.8 mmol/L (21.0-32.0); CHLORIDE - SERUM 106 mmol/L (98-107); CREATININE - SERUM 0.6 mg/dL (0.6-1.3); GLUCOSE 78 mg/dL (74-106); POTASSIUM - SERUM 4.1 mmol/L (3.5-5.1); SODIUM 137 mmol/L (136-145); UREA NITROGEN 13 mg/dL (7-18); eGFR NON AFRICAN AMERICAN > 90 mL/min (90-120)
[2019-01-31] MEDS ORDERED: PRISTIQ50 MG PO (03:59)
[2019-01-31] MEDS ORDERED: MS CONTIN60 MG PO (03:59)
[2019-01-31] MEDS ORDERED: HYDROCODONE-IB1 EAC3 PO (04:01)
[2019-01-31] MEDS ORDERED: NALOXONE (04:07)
[2019-01-31] MEDS ORDERED: Zantac (04:08)
--- NOTE | 2019-01-31 04:16 | NUR ---
PT ON C/L. C/O "ANXIOUS AND CANT RELAX.". Lorena GARCIA APN PAGED
[2019-01-31 04:18] LABS: EOSINOPHILS 2 % (0-7); LYMPHOCYTES 9 % (15-50); MONOCYTES 8 % (2-11); NEUTROPHILS 78 % (40-80); PLATELET ESTIMATE INCREASED
--- NOTE | 2019-01-31 04:20 | NUR ---
Lorena GARCIA APN RETURNED PAGE, STATUS REPORT GIVEN AND NEW ORDER REC'D.
--- NOTE | 2019-01-31 05:15 | NUR ---
PT RESTING WITH EYES CLOSED, NO SIGN OF DISTRESS.
--- NOTE | 2019-01-31 06:25 | NUR ---
REPORT CALLED TO KANE ON MED/SURG.
--- NOTE | 2019-01-31 06:44 | NUR ---
REPORT RECEIVED AND PT JUST ARRIVED ON UNIT VIA BED. ORIENTED TO ROOM AND ZEENAT LIGHT.
[2019-01-31 09:02] VITALS: BP 170/88
--- NOTE | 2019-01-31 11:17 | NUR ---
PT RESTING IN BED. NO SIGNS OF DISTRESS. IV TO LEFT UPPER ARM PATENT NO REDNESS OR TENDERNESS. HAS ROWLAND NO KINKS. HAS COLOSTOMY PATENT. INCISION CLEAN AND INTACT. COMPLAINS OF PAIN. MEDICATION GIVEN. DENIES ANY FUTHER NEED AT THIS TIME. CALL LIGHT IN REACH. BED LOW POSITION. FAMILY AT BEDSIDE.
[2019-01-31 13:12] VITALS: BP 191/90
--- NOTE | 2019-01-31 13:52 | NUR ---
Nutrition follow-up: Pt s/p Hartsman procedure; POD #3 Remains NPO; ProcalAmine PPN infusing @ 75 ml/hr Labs reviewed Wt: 303# Colostomy RDN following.
--- NOTE | 2019-01-31 16:02 | NUR ---
APPLICATIONS SYSTEMS ENGINEER DRIPPING ON FLOOR. PT STATES IS NOT RECIEVING GOOD PAIN CONTROL. NEW SYRINGE AND TUBING CHANGED. INCENTIVE SPIROMETRY NOTED AT BEDSIDE. GAVE TO PATIENT AND USED X 5 WITH RESULTS OF 1250CC RETURNED. COUGHED AND CLEAR PHLEGM NOTED. FAMILY AT BEDSIDE. CALL LIGHT IN REACH . SCDS ON BILAT
--- NOTE | 2019-01-31 16:13 | MORECARE ---
CASE MANAGEMENT DISCHARGE SUMMARY PATIENT: BETSY PERRY UNIT: [id number] ADM DATE: 01/22/19 AGE: 53 : 61 SEX: F ROOM/BED: D.2227 AUTHOR: ADWOA CASTILLO PHYSICIAN: REFERRING PHYSICIAN: RONALD BELCHER MD DATE OF SERVICE: 01/31/19 Discharge Plan Patient Name: BETSY PERRY Facility: [facility]:[place] : 1965 Planned Disposition: Home Anticipated Discharge Date: Discharge Date: Expected LOS: Initial Reviewer: [email or web address] Initial Review Date: 01/25/2019 Generated: 01/31/19 5:13 pm Comments DCP- Discharge Planning Updated by [email or web address]: Юлия Haynes on 01/31/19 3:[address] Spoke with patient and her sister about discharge plan. She would like to go to inpatient rehab when medically stable. I will get an order for a rehab screen. CM will continue to follow and assist with discharge planning/needs. DCP- Discharge Planning Updated by [email or web address]: Jessie Timmons on 01/28/19 1:[address] CM came and spoke with patient regarding rolling walker for home use. Patient stated she had no preference for DME but she also stated that she was having surgery later today and would be in ICU post-op and doesn't want a walker brought to hospital until closer to discharge. YAJAIRA signed for no preference in DME. CM will continue to follow and assist as needed with discharge planning / needs. DCP- Discharge Planning Updated by [id number]: Jessie Timmons on 01/25/19 6:[address] Patient Name: BETSY PERRY Admission Status: ER Accout number: [id number] Admission Date: 01-22-2019 : 1965 Admission Diagnosis:SEPSIS, UNSPECIFIED ORGANISM Attending: RONALD BELCHER Current LOS: 3 Anticipated DC Date: Planned Disposition: Home Primary Insurance: MEDICARE A & B Discharge Planning Comments: CM met with patient to complete initial dc planning assessment. CM educated patient on the CM role and verbal consent given by patient to complete assessment. Patient lives at home alone where she is independent with her care. At discharge patient plans to return home and feels this is a safe discharge. CM discussed availability of home health, rehab services, and medical equipment. She will have family drive her home upon discharge. Patient denied known discharge needs at this time. CM will continue to follow and will assist as needed with dc plans/needs. Venetian Blind Cleaner: Jessie Timmons DCPIA - Discharge Planning Initial Assessment Updated by [email or web address]: Jessie Timmons on 01/25/19 7:36 pm * Is the patient Alert and Oriented? Yes * How many steps to enter\exit or inside your home? * PCP ABDULLAHI * Pharmacy [facility] * Preadmission Environment Home Alone * ADLs Independent * List name and contact numbers for known caregivers / representatives who currently or will assist patient after discharge: VERO MATHEW - [facility]- [phone] * Verbal permission to speak to the caregivers and representatives has been obtained from the patient. N/A * Community resources currently utilized None * Additional services required to return to the preadmission environment? No * Can the patient safely return to the preadmission environment? Yes * Has this patient been hospitalized within the prior 30 days at any hospital? No Last DP export: 01/28/19 2:06 p Patient Name: BETSY PERRY Page [id number] at 1613 All edits/amendments must be made on the electronic document DICTATION DATE: 01/31/191612 DECKHAND TUNA BOAT: JOANIE 01/31/191612 RPT#: [id number] DC DATE: STATUS: ADM IN [facility] [address] [place] [address] END OF REPORT
--- NOTE | 2019-01-31 16:39 | NUR ---
REHAB PRESCREENING CONSULT RECIEVED AND THE CHART HAS BEEN REVIEWED. SHE WILL BE A GOOD REHAB CANDIDATE WHEN SHE IS MEDICALLY STABLE AND ABLE TO PARTICIPATE IN THREE HRS OF THERAPY 5 DAYS A WEEK. CURRENTLY SHE IS NPO AND HAS NOT AMBULATED WITH PT. REHAB WILL FOLLOW HER PROGRESS. SELENE PETERSON RN CLINICAL LIAISON, REHAB
[2019-01-31 18:02] VITALS: BP 179/95
--- NOTE | 2019-01-31 18:45 | NUR ---
I have reviewed this patient and I concur with the Shift Assessment completed by the Licensed Practical Nurse today this shift.
--- NOTE | 2019-01-31 19:40 | NUR ---
A/O WITH NO SIGNS OF ACUTE DISRESS. MIDLINE LOCATED IN RIGHT UPPER ARM AND ROWLAND IN PLACE. DRESSING TO THE MIDDLE OF ABDOMEN WITH HANY DRAIN AND OSTOMY TO THE LF SIDE OF ABDOMEN. REPOSITIONED FROM LAYING ON LF SIDE TO BACK. DENIES OTHER NEEDS AT THIS TIME. CONTIUE WITH PLAN OF CARE.
[2019-01-31 20:00] VITALS: BP 137/61
[2019-02-01 04:00] VITALS: BP 136/70
[2019-02-01 06:57] LABS: CALC OSMOLALITY 270 mosm/kg (275-300); CALCIUM 7.4 mg/dL (8.5-10.1); CARBON DIOXIDE 23.9 mmol/L (21.0-32.0); CHLORIDE - SERUM 105 mmol/L (98-107); CREATININE - SERUM 0.6 mg/dL (0.6-1.3); GLUCOSE 86 mg/dL (74-106); POTASSIUM - SERUM 3.9 mmol/L (3.5-5.1); SODIUM 136 mmol/L (136-145); UREA NITROGEN 12 mg/dL (7-18); eGFR NON AFRICAN AMERICAN > 90 mL/min (90-120)
[2019-02-01 07:26] LABS: BASOPHILS 0.5 % (0-2); EOSINOPHILS 1.6 % (0-7); HEMATOCRIT 28.9 % (36.0-48.0); HEMOGLOBIN 9.6 g/dL (12-16); LYMPHOCYTES 13.9 % (15-50); MCH 28.2 pg (26.0-34.0); MCHC 33.2 g/dL (31.0-37.0); MCV 84.8 fL (80.0-100.0); MEAN PLATELET VOLUME 9.1 fL (7.4-10.4); PLATELET COUNT 456 10x3/uL (130-400); RBC 3.41 10x6/uL (4.00-5.40); RDW 15.9 % (11.5-14.5); WBC 14.8 10x3/uL (4.8-10.8)
[2019-02-01 09:08] VITALS: BP 148/60
[2019-02-01 12:17] VITALS: BP 116/58
--- NOTE | 2019-02-01 13:45 | NUR ---
Ostomy teaching. Provided with booklet on living with an ostomy. Discussed skin protection and application of wafers. Pt reviewed booklet and asked many questions. Tomorrow will revisit and answer any additional questions. She has requested phone # for ostomy suppliers and a belt for appliance security.
[2019-02-01 16:45] VITALS: BP 112/70
--- NOTE | 2019-02-01 17:47 | NUR ---
HANY DRAIN REMOVED PER DR ROSE. DRESSING CHANGED REMOVED PER DR ROSE. PATIENT REPORTS A 10 OUT OF 10 ON THE PAIN SCALE. BOLUS GIVEN BEFORE REMOVAL. CL IN REACH WCTM.
[2019-02-01 18:44] LABS: APPEARANCE CLEAR (CLEAR); BILIRUBIN NEGATIVE (NEGATIVE); COLOR YELLOW (YELLOW); GLUCOSE NEGATIVE (NEGATIVE); KETONE NEGATIVE (NEGATIVE); NITRITE NEGATIVE (NEGATIVE); PROTEIN NEGATIVE (NEGATIVE); UROBILINOGEN NORMAL (NORMAL)
--- NOTE | 2019-02-01 19:30 | NUR ---
A/O WITH NO SIGNS OF ACUTE DISTRESS. MIDLINE TO THE LT UPPER ARM AND ROWLAND IN PLACE. OSTOMY TO THE LLQ WITH HONEY LIQUID STOOL. UTILIZES SALESPERSON NECKTIES FOR PAIN. DENIES OTHER NEEDS AT THIS TIME. CONTINUE WITH PLAN OF CARE.
[2019-02-01 20:00] VITALS: BP 130/83
[2019-02-02] VITALS: BP 125/62
--- NOTE | 2019-02-02 | NUR ---
OSTOMY BAG LEAKIING. APPLIED NEW BAG AND LINEN CHANGE. STOOL IS LIQUID AND HONEY COLORED. STOMA IS PINK AND MOIST. SOME SKIN IRRITATION NOTED AROUND STOMA SITE. WILL CONTIUE TO MONITOR.
[2019-02-02 04:00] VITALS: BP 137/71
[2019-02-02 06:24] LABS: BASOPHILS 0.4 % (0-2); EOSINOPHILS 1.7 % (0-7); HEMATOCRIT 30.2 % (36.0-48.0); HEMOGLOBIN 10.1 g/dL (12-16); IMMATURE GRANULOCYTES 4.4 % (0-5); MCH 28.9 pg (26.0-34.0); MCHC 33.4 g/dL (31.0-37.0); MCV 86.5 fL (80.0-100.0); MONOCYTES 6.9 % (2-11); NEUTROPHILS 72.6 % (40-80); PLATELET COUNT 422 10x3/uL (130-400); RBC 3.49 10x6/uL (4.00-5.40); RDW 16.1 % (11.5-14.5); WBC 15.6 10x3/uL (4.8-10.8)
[2019-02-02 06:40] LABS: CALC OSMOLALITY 274 mosm/kg (275-300); CALCIUM 7.9 mg/dL (8.5-10.1); CARBON DIOXIDE 23.9 mmol/L (21.0-32.0); CHLORIDE - SERUM 107 mmol/L (98-107); CREATININE - SERUM 0.7 mg/dL (0.6-1.3); GLUCOSE 99 mg/dL (74-106); MAGNESIUM - SERUM 1.8 mg/dL (1.8-2.4); PHOSPHOROUS 3.2 mg/dL (2.5-4.9); POTASSIUM - SERUM 3.9 mmol/L (3.5-5.1); SODIUM 138 mmol/L (136-145); UREA NITROGEN 10 mg/dL (7-18); eGFR NON AFRICAN AMERICAN > 90 mL/min (90-120)
[2019-02-02 08:28] VITALS: BP 119/68
--- NOTE | 2019-02-02 08:39 | NUR ---
PT RESTING IN BED. AROUSED BY VERBAL STIMULI. NO S/S OF ACUTE DISTRESS. CL IN PLACE.
[2019-02-02 12:02] VITALS: BP 107/57
[2019-02-02 16:24] VITALS: BP 130/67
--- NOTE | 2019-02-02 19:26 | NUR ---
PT RESTING IN BED. NO S/S OF ACUTE DISTRESS. CL IN PLACE.
--- NOTE | 2019-02-02 19:45 | NUR ---
LYING IN BED. ALERT AND ORIENTED X4. FAMILY AT BEDSIDE. RESP EVEN AND NONLABORED. ENCOURAGED USE OF I.S. BBS DIMINISHED. RT IN ROOM FOR UD. NOT WEARING O2. SCDS IN USE. PEDAL PULSES GOOD. BRUISES NOTED TO BUE. NS @ 50 ML/HR INFUSINGI N RT FOREARM WITHOUT DIFF. PT HAS MIDLINE IN LT UPPER ARM BUT IT IS NOT IN USE DUE TO LEAKING. RATES PAIN IN ABD 2. COLOSTOMY NOTED TO LLQ WITH GREEN/BROWNISH LIQ STOOL. CL IN REACH.
[2019-02-02 20:00] VITALS: BP 108/63
--- NOTE | 2019-02-02 22:30 | NUR ---
ROWLAND CATH REMOVED AT THIS TIME. PT SARAH WELL. PT REQUESTS ADULT PULL UP BRIEF BECAUSE SHE IS INCONT AT TIMES. ASSISTED WITH BRIEF. INSTRUCTED TO CALL STAFF FOR ASSISTANCE WITH NEEDING TO GET UP TO BSC. SHE VERBALIZED UNDERSTANDING. COLOSTOMY EMPTED AT THIS TIME. CL IN REACH.
--- NOTE | 2019-02-03 01:00 | NUR ---
ASSISTED UP TO BSC TO VOID. ASSISTED BACK TO BED. CL IN REACH. DENIES PAIN.
--- NOTE | 2019-02-03 03:50 | NUR ---
HASNT SLEPT MUCH TONIGHT. DENIES PAIN. NO DISTRESS. CL IN REACH.
[2019-02-03 04:00] VITALS: BP 141/82
[2019-02-03 06:28] LABS: HEMATOCRIT 30.9 % (36.0-48.0); MCH 28.2 pg (26.0-34.0); MCHC 32.4 g/dL (31.0-37.0); MCV 87.3 fL (80.0-100.0); MEAN PLATELET VOLUME 9.2 fL (7.4-10.4); PLATELET COUNT 470 10x3/uL (130-400); RBC 3.54 10x6/uL (4.00-5.40); RDW 16.5 % (11.5-14.5); WBC 15.7 10x3/uL (4.8-10.8)
[2019-02-03 06:43] LABS: CALC OSMOLALITY 278 mosm/kg (275-300); CALCIUM 7.9 mg/dL (8.5-10.1); CARBON DIOXIDE 25.5 mmol/L (21.0-32.0); CHLORIDE - SERUM 107 mmol/L (98-107); CREATININE - SERUM 0.8 mg/dL (0.6-1.3); GLUCOSE 103 mg/dL (74-106); POTASSIUM - SERUM 3.3 mmol/L (3.5-5.1); SODIUM 141 mmol/L (136-145); UREA NITROGEN 8 mg/dL (7-18); eGFR NON AFRICAN AMERICAN 79 mL/min (90-120)
--- NOTE | 2019-02-03 08:18 | NUR ---
ALERT AND ORIENTED. LUNGS CLEAR BILATERALLY IN ALL PATRICK. HEART SOUNDS S1 AND S2 HEARD IN ALL PATRICK. BOWEL SOUNDS ACTIVE X4. OSTOMY IN PLACE TO LLQ. STATES TAKES ADVIL 3 IN AM BUT NOT ON MAR. TAMERA MALDONADO NOTIFIED. NO FURTHER ORDERS AT THIS TIME. DENIES FURTHER NEEDS. IV TO RFA PATENT WITHOUT REDNESS. JUAN MIDLINE INFILTRATED LAST NIGHT PER CHILD WELFARE COUNSELOR RN. SPOKE WITH VASCULAR ACCESS NURSE WHO STATED LOOKED AT MIDLINE AND CHANGED DRSG LAST NIGHT BUT WOULD COME LOOK AGAIN TODAY. IV TO RFA PATENT WITHOUT REDNESS. BED LOW. CALL ERICKSON AND PERSONAL ITEMS IN REACH. WILL CONTIUE TO MONITOR.
[2019-02-03 09:39] VITALS: BP 172/97
[2019-02-03 09:53] LABS: ANISOCYTOSIS OCC; EOSINOPHILS 2 % (0-7); LYMPHOCYTES 19 % (15-50); MONOCYTES 9 % (2-11); NEUTROPHILS 59 % (40-80); PLATELET ESTIMATE INCREASED
--- NOTE | 2019-02-03 10:20 | NUR ---
TAMERA MALDONADO NOTIFIED OF MAG REDRAW 1.6.
--- NOTE | 2019-02-03 11:00 | NUR ---
DRSG CHANGED TO ABD PER ORDER.
[2019-02-03 11:27] LABS: T4 THYROXIN - FREE 2.91 ng/dL (0.76-1.46); THYROID STIMULATING HORMONE 8.58 uIU/mL (0.36-3.74)
[2019-02-03 11:56] VITALS: BP 142/74
--- NOTE | 2019-02-03 13:19 | NUR ---
RESTING IN BED. DENIES NEEDS AT THIS TIME. WILL CONTINUE TO MONITOR.
--- NOTE | 2019-02-03 13:40 | NUR ---
Nutrition follow-up: ProcalAmine PPN has been discontinued. Diet advanced to consistent CHO with po intake ~50% of meals at this time. Labs reviewed WT: 303# Will provide food choices and honor food preferences within diet restrictions. RDN following.
--- NOTE | 2019-02-03 14:08 | NUR ---
Information about ostomy suppliers given to patient. A belt for use with ostomy appliance provided. Pt is supposed to go to Rehab for therapy soon. Will follow her on Rehab also.
--- NOTE | 2019-02-03 15:27 | NUR ---
RESTING IN BED. SISTER AT BEDSIDE. DENIES PAIN. DENIES NEEDS. WILL CONTINUE TO NOHEMI.
--- NOTE | 2019-02-03 18:24 | NUR ---
RESTING IN BED. DENIES PAIN. DENIES NEEDS. BED LOW. CALL ERICKSON AND PERSONAL ITEMS IN REACH. WILL CONTINUE TO MONITOR.
--- NOTE | 2019-02-03 19:02 | OP ---
PATIENT NAME: BETSY PERRY MEDICAL RECORD: [id number] :[birth year] LOCATION:[id number] ADMISSION DATE:01/22/19 SURGEON: RAFA ROSE MD DATE OF OPERATION: 01/28/2019 PREOPERATIVE DIAGNOSES: 1. Septicemia. 2. Perforated sigmoid diverticulitis. POSTOPERATIVE DIAGNOSES: 1. Septicemia. 2. Hinchey class IV sigmoid diverticular perforation. PROCEDURES: Sherif procedure (sigmoid colectomy with descending colon colostomy) with takedown of the splenic flexure - hand-assisted laparoscopic surgery. SURGEON: Rafa Rose MD CLOTH SHRINKING MACHINE OPERATOR: None. BLOOD LOSS: Please see the anesthesia sheet. DRAINS: Times 1 (9-Turkmen round fully fluted drain). The risks, possible complications, and alternatives to the procedure were explained to the patient. She elects to proceed. The discussion specifically included, but was not limited to, bleeding requiring emergency reoperation, infection, intestinal injury. The patient knew prior to beginning of the procedure that she would have a colostomy due to the amount of inflammation that was present due to the fact that this was a perforated diverticulitis. OPERATIVE COURSE: The patient was conveyed to the operating room urgently on 01/28/2019. General anesthesia was induced by the anesthesia staff. The abdomen was sterilely prepped and draped. A midline incision was accomplished between the umbilicus and to the pubic symphysis. I sharply dissected down through the skin and subcutaneous tissue and I incised the linea alba. I entered the peritoneal cavity sharply. I encountered about a liter of liquid fecal material, which had caused diffuse peritonitis. This was irrigated and aspirated. I kept irrigating and aspirating until I saw no further fecal material. The Jose retractor was placed. Over the Jose retractor, the GelPort was placed. Through the GelPort, I placed a 12-mm trocar. CO2 insufflation was begun. Once a sufficient pneumoperitoneum had been achieved, a 5-mm trocar was inserted through an incision in the left lower quadrant. Another 5-mm trocar was inserted through an incision in the epigastrium. During insertion of the GelPort and all trocars, there appeared to have been no injury to the bowels, any intraperitoneal or retroperitoneal structures. I placed my hand into the peritoneal cavity. I incised along the left white line of Toldt while folding the left colon medially. I entered the intersigmoid fossa. Utilizing the Harmonic scalpel, I took down the splenic flexure without injury to the colon or the spleen. Taking down the splenic flexure should aid in the reanastomosis when the patient does undergo reanastomosis. This [facility] OPERATIVE REPORT [id number] [id number] up of the left colon and the splenic flexure allowed me to deliver the sigmoid colon after the GelPort top was taken off. I chose the distal extent of my resection to be the junction of the sigmoid colon and the rectum. A window was created in the mesorectum at this site. I stapled off the rectum with a TA 60 stapler and then divided the colon proximal to this. The proximal extent of the resection was going to be the junction of the descending and sigmoid colons. I created a window in the mesentery of the colon at this site. I then stapled across the colon with a TA 60 stapler and divided the colon distal to this. The interposed mesentery was taken down with the Super Jaw EnSeal device. The sigmoid colon was sent as a single specimen. A circular defect was accomplished in the left lower quadrant between the anterior superior iliac spine and the umbilicus. Skin and subcutaneous tissue was excised. I identified the anterior fascia, which was scored. I then the muscle layers and scored the posterior muscle layer and entered the peritoneal cavity sharply. I widened this opening. I then advanced the descending colon out through this opening. The lower midline fascia was closed with a looped #1 PDS from the cephalad and caudad direction. Rather than leave the entire wound open, I elected to place some Telfa shalini. Several clips were applied to approximate the skin at several sites. Between these clips, Telfa shalini were placed. At the upper trocar site, a 19-Turkmen round fully fluted drain was advanced into the peritoneal cavity and the trocar removed. In the left lower quadrant, I matured the colostomy. I chose the extent of my resection and I checked it with a Doppler and there was arterial Doppler signal. I transected the colon at this site. I then matured a Claribel type of colostomy. This is an everting type of colostomy that was matured with 3-0 Vicryl sutures. I then sutured the full-thickness colon to the surrounding skin with 3-0 Vicryls. A stomal appliance was then applied. Sterile dressings were then applied. The drain was sutured to the skin with a 2-0 nylon. The patient was then conveyed to the intensive care unit, where she was in critical, but stable condition. TRANSINT:[id number] Voice Confirmation ID: [id number] DOCUMENT ID: [id number] RAFA ROSE MD at 1902 CC: [id number] DICTATION DATE: 02/02/19 1636 [facility] STORAGE ARCHITECT: 02/02/19 2321 ADM IN [facility] [address] [place] [address]
--- NOTE | 2019-02-03 19:55 | NUR ---
SITTING UP IN BED TALKING TO VISITORS. RATES PAIN IN ABD 2. DRSG INTACT TO ABD WITH OLD DRAINAGE MARKED. LLQ COLOSTOMY NOTED WITH SMALL AMOUNT OF GREENISH/BROWN LIQUID STOOL IN BAG. SCDS IN USE BILAT. NS @ 50 ML/HR INFUSING IN LT UPPER ARM MIDLINE WITHOUT DIFF. BRUISES NOTED TO BUE. INCONT OF URINE AT TIMES AND WEARS ADULT BRIEF PULL UPS. SR ELEVATED X2. CL IN REACH.
[2019-02-03 20:00] VITALS: BP 147/61
--- NOTE | 2019-02-03 20:09 | NUR ---
MEDICATED WITH VICOPROFEN PER REQUEST FOR C/O ABD PAIN. CL IN REACH.
--- NOTE | 2019-02-03 21:50 | NUR ---
ABD DRSG CHANGED AT THIS TIME. DRY ABD APPLIED TO MIDLINE ABD INCISION. SUTURES NOTED WITH OPEN AREA TO UPPER INCISION WITH SMALL AMOUNT OF SEROSANGUINEOUS DRAINAGE. NO ODOR OR REDNESS NOTED. PT SARAH WELL.
--- NOTE | 2019-02-03 23:00 | NUR ---
INCONT OF URINE. ASSISTED UP TO BR TO VOID. COMPLETE LINEN CHANGE PERFORMED AT THIS TIME. ASSISTED BACK TO BED. CL IN REACH.
[2019-02-04] VITALS: BP 117/60
[2019-02-04 04:00] VITALS: BP 142/75
--- NOTE | 2019-02-04 06:29 | NUR ---
DIDNT SLEEP MUCH TONIGHT. UP TO BR TO VOID SEVERAL TIMES.
[2019-02-04 06:32] LABS: BASOPHILS 0.8 % (0-2); EOSINOPHILS 2.5 % (0-7); HEMATOCRIT 27.5 % (36.0-48.0); HEMOGLOBIN 8.8 g/dL (12-16); IMMATURE GRANULOCYTES 7.6 % (0-5); LYMPHOCYTES 20.6 % (15-50); MCH 28.1 pg (26.0-34.0); MCV 87.9 fL (80.0-100.0); MEAN PLATELET VOLUME 8.8 fL (7.4-10.4); MONOCYTES 6.8 % (2-11); NEUTROPHILS 61.7 % (40-80); PLATELET COUNT 448 10x3/uL (130-400); RBC 3.13 10x6/uL (4.00-5.40); RDW 17.1 % (11.5-14.5)
[2019-02-04 06:45] LABS: WBC 13.1 10x3/uL (4.8-10.8)
[2019-02-04 06:58] LABS: CALC OSMOLALITY 279 mosm/kg (275-300); CALCIUM 7.9 mg/dL (8.5-10.1); CARBON DIOXIDE 25.5 mmol/L (21.0-32.0); CHLORIDE - SERUM 108 mmol/L (98-107); CREATININE - SERUM 0.7 mg/dL (0.6-1.3); GLUCOSE 82 mg/dL (74-106); SODIUM 142 mmol/L (136-145); UREA NITROGEN 7 mg/dL (7-18); eGFR NON AFRICAN AMERICAN > 90 mL/min (90-120)
[2019-02-04 07:50] VITALS: BP 100/72
--- NOTE | 2019-02-04 08:25 | NUR ---
ALERT AND ORIENTED. LUNGS CLEAR BILATERALLY IN ALL FEILDS. HEART SOUNDS S1 AND S2 HEARD IN ALL PATRICK. BOWEL SOUNDS ACTIVE X 4. OSTOMY TO LLQ PATENT. JUAN MIDLINE PATENT WITHOUT REDNESS. DENIES NEEDS. BED LOW. CALL ERICKSON AND PERSONAL ITEMS IN REACH. WILL CONTINUE TO MONITOR.
[2019-02-04] MEDS ORDERED: LOVENOX40 MG/0.4 SC (10:03)
[2019-02-04] MEDS ORDERED: ZANAFLEX4 MG PO (10:03)
[2019-02-04] MEDS ORDERED: ALBUTEROL2.5 MG/3 M INH (10:03)
[2019-02-04] MEDS ORDERED: HYDROCODONE-IB1 EAC3 PO (10:04)
[2019-02-04] MEDS ORDERED: NAPROXEN250 MG PO (10:05)
[2019-02-04] MEDS ORDERED: CALCIUM 250+D T1 TAB PO (10:05)
[2019-02-04] MEDS ORDERED: MS CONTIN30 MG PO (10:05)
[2019-02-04] MEDS ORDERED: LEVAQUIN750 MG PO (10:06)
[2019-02-04] MEDS ORDERED: FLAGYL500 MG PO (10:07)
--- NOTE | 2019-02-04 10:54 | NUR ---
PATIENT UNHOOKED FROM IV TO SHOWER PER REQUEST. WILL START ABX AFTER SHOWER.
--- NOTE | 2019-02-04 12:10 | NUR ---
DRSG CHANGED TO ABD PER ORDER. OSTOMY BAG CHANGED FOR DISCHARGE TO REHAB. DENIES FURTHER NEEDS AT THIS TIME.
--- NOTE | 2019-02-04 12:41 | MORECARE ---
CASE MANAGEMENT DISCHARGE SUMMARY PATIENT: BETSY PERRY UNIT: [id number] ADM DATE: 01/22/19 AGE: 53 : 61 SEX: F ROOM/BED: D.2227 AUTHOR: ANNADOC PHYSICIAN: REFERRING PHYSICIAN: RONALD BELCHER MD DATE OF SERVICE: 02/04/19 Discharge Plan Patient Name: BETSY PERRY Facility: [facility]:[place] : 1965 Planned Disposition: Home Anticipated Discharge Date: Discharge Date: Expected LOS: Initial Reviewer: [email or web address] Initial Review Date: 01/25/2019 Generated: 02/04/19 1:41 pm Comments DCP- Discharge Planning Updated by [email or web address]: Юлия Haynes on 02/04/19 11:[address] Patient Name: BETSY PERRY Encounter No: [id number] : 1965 Primary Insurance: MEDICARE A & B Anticipated DC Date: Planned Disposition: Home External Planned Provider: : DCP follow-up note: Patient and family in agreement with discharge plan. No changes to plan. Discharging today to inpatient rehab. Case management will follow and assist as needed. Юлия Haynes DCP- Discharge Planning Updated by [email or web address]: Юлия Haynes on 01/31/19 3:[address] Spoke with patient and her sister about discharge plan. She would like to go to inpatient rehab when medically stable. I will get an order for a rehab screen. CM will continue to follow and assist with discharge planning/needs. DCP- Discharge Planning Updated by [email or web address]: Jessie Timmons on 01/28/19 1:[address] CM came and spoke with patient regarding rolling walker for home use. Patient stated she had no preference for DME but she also stated that she was having surgery later today and would be in ICU post-op and doesn't want a walker brought to hospital until closer to discharge. YAJAIRA signed for no preference in DME. CM will continue to follow and assist as needed with discharge planning / needs. DCP- Discharge Planning Updated by [email or web address]: Jessie Timmons on 01/25/19 6:[address] Patient Name: BETSY PERRY Admission Status: ER Accout number: [id number] Admission Date: 01-22-2019 : 1965 Admission Diagnosis:SEPSIS, UNSPECIFIED ORGANISM Attending: RONALD BELCHER Current LOS: 3 Anticipated DC Date: Planned Disposition: Home Primary Insurance: MEDICARE A & B Discharge Planning Comments: CM met with patient to complete initial dc planning assessment. CM educated patient on the CM role and verbal consent given by patient to complete assessment. Patient lives at home alone where she is independent with her care. At discharge patient plans to return home and feels this is a safe discharge. CM discussed availability of home health, rehab services, and medical equipment. She will have family drive her home upon discharge. Patient denied known discharge needs at this time. CM will continue to follow and will assist as needed with dc plans/needs. Steel Layer: Jessie Timmons DCPIA - Discharge Planning Initial Assessment Updated by [email or web address]: Jessie Timmons on 01/25/19 7:36 pm * Is the patient Alert and Oriented? Yes * How many steps to enter\exit or inside your home? * PCP ABDULLAHI * Pharmacy [facility] * Preadmission Environment Home Alone * ADLs Independent * List name and contact numbers for known caregivers / representatives who currently or will assist patient after discharge: [facility] [phone] * Verbal permission to speak to the caregivers and representatives has been obtained from the patient. N/A * Community resources currently utilized None * Additional services required to return to the preadmission environment? No * Can the patient safely return to the preadmission environment? Yes * Has this patient been hospitalized within the prior 30 days at any hospital? No Coverage Notice Reviewer: [id number] Sergo Haynes Notice Issued Date-Time: 02/04/2019 12:36 Notice Type: IM Discharge Notice Notice Delivered To: Patient Relationship to Patient: Self Automatic Mounter Name: Delivery Method: HAND - Hand Delivered Janki Days: Prior Verbal Notification: Recipient Understood Notice: Yes Recipient Signature: Yes Med Rec Note Co-signed by Attending: Coverage Notice Comment: IMM explained, signed, given, copy placed in MR Last DP export: 01/31/19 3:13 p Patient Name: BETSY PERRY Page [id number] at 1241 All edits/amendments must be made on the electronic document DICTATION DATE: 02/04/191239 FIREARMS INSTRUCTOR: JOANIE 02/04/190 RPT#: [id number] DC DATE: STATUS: ADM IN [facility] [address] [place] [address] END OF REPORT
--- NOTE | 2019-02-04 13:40 | NUR ---
RESTING IN BED. DENIES PAIN. DENIES NEEDS. WILL CONTINUE TO MONITOR.
--- NOTE | 2019-02-04 15:01 | NUR ---
REPORT CALLED TO HERBERT IN REHAB.
--- NOTE | 2019-02-04 15:20 | NUR ---
DISCHARGE EDUCATION PROVIDED BOTH WRITTEN AND VERBAL. VERBALIZED UNDERSTANDING. DENIES FURTHER QUESTIONS. MIDLINE LEFT IN PLACE TO JUAN FOR TRANSFER TO REHAB. PATIENT DISCHARGED TO REHAB WITH ALL BELONGINGS.
--- NOTE | 2019-02-05 12:00 | MORECARE ---
CASE MANAGEMENT DISCHARGE SUMMARY PATIENT: BETSY PERRY UNIT: [id number] ADM DATE: 01/22/19 AGE: 53 : 61 SEX: F ROOM/BED: D.2227 AUTHOR: ANNADOC PHYSICIAN: REFERRING PHYSICIAN: RONALD BELCHER MD DATE OF SERVICE: 02/05/19 Discharge Plan Patient Name: BETSY PERRY Facility: [facility]:[place] : 1965 Planned Disposition: Home Anticipated Discharge Date: Discharge Date: 02/04/2019 Expected LOS: Initial Reviewer: [email or web address] Initial Review Date: 01/25/2019 Generated: 02/05/19 1:00 pm Comments DCP- Discharge Planning Updated by [email or web address]: Юлия Mayberrythierry on 02/04/19 11:[address] Patient Name: BETSY PERRY Encounter No: [id number] : 1965 Primary Insurance: MEDICARE A & B Anticipated DC Date: Planned Disposition: Home External Planned Provider: : DCP follow-up note: Patient and family in agreement with discharge plan. No changes to plan. Discharging today to inpatient rehab. Case management will follow and assist as needed. Юлия Haynes DCP- Discharge Planning Updated by [email or web address]: Юлия Haynes on 01/31/19 3:[address] Spoke with patient and her sister about discharge plan. She would like to go to inpatient rehab when medically stable. I will get an order for a rehab screen. CM will continue to follow and assist with discharge planning/needs. DCP- Discharge Planning Updated by [email or web address]: Jessie Timmons on 01/28/19 1:[address] CM came and spoke with patient regarding rolling walker for home use. Patient stated she had no preference for DME but she also stated that she was having surgery later today and would be in ICU post-op and doesn't want a walker brought to hospital until closer to discharge. YAJAIRA signed for no preference in DME. CM will continue to follow and assist as needed with discharge planning / needs. DCP- Discharge Planning Updated by [id number]: Jessie Timmons on 01/25/19 6:[address] Patient Name: BETSY PERRY Admission Status: ER Accout number: [id number] Admission Date: 01-22-2019 : 1965 Admission Diagnosis:SEPSIS, UNSPECIFIED ORGANISM Attending: RONALD BELCHER Current LOS: 3 Anticipated DC Date: Planned Disposition: Home Primary Insurance: MEDICARE A & B Discharge Planning Comments: CM met with patient to complete initial dc planning assessment. CM educated patient on the CM role and verbal consent given by patient to complete assessment. Patient lives at home alone where she is independent with her care. At discharge patient plans to return home and feels this is a safe discharge. CM discussed availability of home health, rehab services, and medical equipment. She will have family drive her home upon discharge. Patient denied known discharge needs at this time. CM will continue to follow and will assist as needed with dc plans/needs. Auditor Supervisor: Jessie Timmons DCPIA - Discharge Planning Initial Assessment Updated by [email or web address]: Jessie Timmons on 01/25/19 7:36 pm * Is the patient Alert and Oriented? Yes * How many steps to enter\exit or inside your home? * PCP ABDULLAHI * Pharmacy [facility] * Preadmission Environment Home Alone * ADLs Independent * List name and contact numbers for known caregivers / representatives who currently or will assist patient after discharge: [facility] [phone] * Verbal permission to speak to the caregivers and representatives has been obtained from the patient. N/A * Community resources currently utilized None * Additional services required to return to the preadmission environment? No * Can the patient safely return to the preadmission environment? Yes * Has this patient been hospitalized within the prior 30 days at any hospital? No Coverage Notice Reviewer: [id number] Sergo Haynes Notice Issued Date-Time: 02/04/2019 12:36 Notice Type: IM Discharge Notice Notice Delivered To: Patient Relationship to Patient: Self Manager Trading Name: Delivery Method: HAND - Hand Delivered Janki Days: Prior Verbal Notification: Recipient Understood Notice: Yes Recipient Signature: Yes Med Rec Note Co-signed by Attending: Coverage Notice Comment: IMM explained, signed, given, copy placed in MR Last DP export: 02/04/19 11:41 a Patient Name: BETSY PERRY Page [phone] at 1200 All edits/amendments must be made on the electronic document DICTATION DATE: 02/05/19 1200 OVERHEAD IRRIGATOR: JOANIE 02/05/19 1200 RPT#: [id number] DC DATE:02/04/19 STATUS: DIS IN [facility] [address] [facility] [place] [address] END OF REPORT
== END 2019-02-04 15:27 | DRG 853 ==
LOC: D.ER 16:30 → D.ICU 19:22 → D.M3 19:22 → D.MS 19:22 → D.M3 01-26 15:05 → D.ICU 01-28 19:19 → D.MS 01-31 06:39
PROVIDERS: Family Medicine; Surgery; ADMIT Internal Medicine Nephrology; ATTEND Internal Medicine Nephrology
PROC: 05HY33Z Insertion of Infusion Device into Upper Vein, Percutaneous Approach (ICD-10-PCS; 2019-01-27)
PROC: 0DTN0ZZ Resection of Sigmoid Colon, Open Approach (ICD-10-PCS; principal; 2019-01-28 13:30)
PROC: 0D1M0Z4 Bypass Descending Colon to Cutaneous, Open Approach (ICD-10-PCS; 2019-01-28 13:30)
PROC: 05HY33Z Insertion of Infusion Device into Upper Vein, Percutaneous Approach (ICD-10-PCS; 2019-02-03)
DX: A41.9 Sepsis, unspecified organism (principal); K65.1 Peritoneal abscess; R65.21 Severe sepsis with septic shock; K63.1 Perforation of intestine (nontraumatic); N17.9 Acute kidney failure, unspecified; E44.0 Moderate protein-calorie malnutrition; D62 Acute posthemorrhagic anemia; Z68.42 Body mass index [BMI] 45.0-49.9, adult; G72.81 Critical illness myopathy; D64.9 Anemia, unspecified; I10 Essential (primary) hypertension; E78.5 Hyperlipidemia, unspecified; M79.7 Fibromyalgia; D50.9 Iron deficiency anemia, unspecified; R53.81 Other malaise; E03.9 Hypothyroidism, unspecified; M19.90 Unspecified osteoarthritis, unspecified site; J44.9 Chronic obstructive pulmonary disease, unspecified; E66.01 Morbid (severe) obesity due to excess calories

== ENCOUNTER 2019-02-04 15:49 | Inpatient (IN) | payer MEDICARE ==
[~2019-02-04] VITALS: Ht 165.1 cm; Wt 130.2 kg
[~2019-02-04 15:49] MED LIST: ALBUTEROL2.5 MG/3 M INH; CALCIUM 250+D T1 TAB PO; CYANOCOBAL1000 MCG/4 SC; FLAGYL500 MG PO; HYDROCHLOROTHIA25 MG PO; HYDROCODONE-IB1 EAC3 PO; LEVAQUIN750 MG PO; LISINOPRIL30 MG PO; LOVENOX40 MG/0.4 SC; MORPHINE SULFAT30 M4 PO; MS CONTIN30 MG PO; MS CONTIN60 MG PO; NALOXONE; NAPROXEN250 MG PO; PRISTIQ50 MG PO; SYNTHROID175 MCG PO; VITAMIN D5000 UNIT PO; ZANAFLEX4 MG PO; ZANTAC300 MG PO; Zantac
[2019-02-04 18:24] VITALS: BP 149/79; BMI 45.8
--- NOTE | 2019-02-04 18:45 | NUR ---
BEDSIDE REPORT COMPLETE. SITTING UP ON SIDE OF BED ALERT AND ORIENTED X4. DENIES ANY NEEDS. C/O ABDOMINAL PAIN 10/15 MEDICATION SCHEDULED AT 2100. LEFT UPPER ARM MIDLINE DRESSING C/D/I, SITE FREE OF REDNESS OR SWELLING. ABDOMINAL DRESSING C/D/I, COLOSTOMY BAG CLEAN/DRY/INTACT. CALL LIGHT AND WATER WITHIN REACH, FALL PRECAUTIONS IN PLACE. FAMILY AT BEDSIDE NOTED. WILL CONTINUE TO MONITOR
--- NOTE | 2019-02-05 00:06 | NUR ---
QUIET HOURS. LYING IN BED SUPINE EYES CLOSED RESTING. NO SIGNS OF DISTRESS NOTED. WILL CONTINUE TO MONITOR
--- NOTE | 2019-02-05 03:32 | NUR ---
LYING IN BED EYES CLOSED RESTING. NO SIGNS OF DISTRESS NOTED. WILL CONTINUE TO MONITOR
--- NOTE | 2019-02-05 06:15 | NUR ---
PARTICIPATING IN PT WITH MATTHIEU. NO SIGNS OF DISTRESS NOTED. WILL CONTINUE TO MONITOR
[2019-02-05 07:42] LABS: BASOPHILS 0.6 % (0-2); HEMATOCRIT 31.7 % (36.0-48.0); HEMOGLOBIN 10.2 g/dL (12-16); IMMATURE GRANULOCYTES 5.5 % (0-5); LYMPHOCYTES 23.8 % (15-50); MCH 28.6 pg (26.0-34.0); MCHC 32.2 g/dL (31.0-37.0); MCV 88.8 fL (80.0-100.0); MEAN PLATELET VOLUME 9.3 fL (7.4-10.4); MONOCYTES 6.2 % (2-11); NEUTROPHILS 61.9 % (40-80); PLATELET COUNT 411 10x3/uL (130-400); RBC 3.57 10x6/uL (4.00-5.40); RDW 18.1 % (11.5-14.5); WBC 12.8 10x3/uL (4.8-10.8)
[2019-02-05 07:54] VITALS: BP 144/92
[2019-02-05 07:59] VITALS: BP 144/92
[2019-02-05 11:50] LABS: CALC OSMOLALITY 279 mosm/kg (275-300); CALCIUM 8.2 mg/dL (8.5-10.1); CARBON DIOXIDE 26.8 mmol/L (21.0-32.0); CHLORIDE - SERUM 107 mmol/L (98-107); CREATININE - SERUM 0.8 mg/dL (0.6-1.3); GLUCOSE 102 mg/dL (74-106); POTASSIUM - SERUM 4.1 mmol/L (3.5-5.1); SODIUM 141 mmol/L (136-145); eGFR NON AFRICAN AMERICAN 79 mL/min (90-120)
[2019-02-05 11:56] LABS: UREA NITROGEN 10 mg/dL (7-18)
--- NOTE | 2019-02-05 12:34 | NUR ---
DR RICKS NOTIFIED OF PT'S ABD INCISION CONDITION. HE ORDERED WET TO DRY DSG TO ABD.
[2019-02-05 15:39] VITALS: Ht 165.1 cm; Wt 130.2 kg
--- NOTE | 2019-02-05 19:00 | NUR ---
GREETED PATIENT AND ASSISTED TO BATHROOM USING WALKER. PATIENT BACK TO BED AND REPOSITIONED FOR COMFORT. SOILED DRESSING ON ABDOMEN REMOVED AND NEW DRESSING APPLIED USING 4X4'S, ABD PAD AND TAPE. PATIENT TOLERATED PROCEDURE. DENIES ANY FURTHER NEEDS AT THIS TIME. CALL LIGHT IN REACH.
[2019-02-05 19:25] VITALS: BP 128/72
--- NOTE | 2019-02-05 21:58 | NUR ---
REMOVED COLOSTOMY BAG AND REPLACED WITH NEW ONE. COLOSTOMY STUMP RED IN COLOR. PATIENT TOLEARTED PROCEDURE. CALL LIGHT IN REACH.
--- NOTE | 2019-02-06 03:07 | NUR ---
PATIENT AWAKE AND ASSISTED TO BATHROOM USING WALKER. PATIENT BACK TO BED AND REPOSITIONED FOR COMFORT. CALL LIGHT IN REACH.
--- NOTE | 2019-02-06 07:23 | NUR ---
AWAKE AND ALERT. NO DISTRESS NOTED. CL IN REACH.
[2019-02-06 08:00] VITALS: BP 138/66
--- NOTE | 2019-02-06 13:03 | NUR ---
PATIENT HAS VISITORS IN ROOM. CALL LIGHT WITHIN REACH. VOICES NO NEEDS AT THIS TIME.
--- NOTE | 2019-02-06 17:25 | NUR ---
I have reviewed this patient and I concur with the Shift Assessment completed by the Licensed Practical Nurse today this shift.
--- NOTE | 2019-02-06 17:51 | NUR ---
PATIENT HELPED WITH EMPTIY COLOSTOMY BAG
[2019-02-06 19:17] VITALS: BP 128/73
--- NOTE | 2019-02-06 19:17 | NUR ---
GREETED PATIENT AND INTRODUCED MYSELF. PATIENT IS LAYING IN BED IN SUPINE POSITION WATCHING TV. EMPTIED SOFT FORMED STOOL FROM COLOSTOMY BAG. STOMA IS BEEFY RED IN APPERANCE. PATIENT DENIES ANY FURTHER NEEDS AT THIS TIME. CALL LIGHT IN REACH.
--- NOTE | 2019-02-06 21:15 | NUR ---
EMPTIED LARGE SOFT FORMED STOOL FROM COLOSTOMY BAG. STOMA IS BEEFY RED IN APPERANCE.
--- NOTE | 2019-02-07 01:00 | NUR ---
PATIENT RESTING QUIETLY WITH EYES CLOSED. RESPIRATIONS EVEN. NO S/S OF DISTRESS. SR UP X 2. BED IN LOWEST POSITION. CALL LIGHT IN REACH.
[2019-02-07 07:10] LABS: ANION GAP 9.9 mmol/L (8-16); CALCIUM 8.6 mg/dL (8.5-10.1); CARBON DIOXIDE 28.3 mmol/L (21.0-32.0); CREATININE - SERUM 0.9 mg/dL (0.6-1.3); POTASSIUM - SERUM 4.2 mmol/L (3.5-5.1)
[2019-02-07 07:45] VITALS: BP 140/78
[2019-02-07 08:10] LABS: BASOPHILS 0.7 % (0-2); HEMOGLOBIN 9.1 g/dL (12-16); IMMATURE GRANULOCYTES 1.7 % (0-5); LYMPHOCYTES 24.3 % (15-50); MCH 28.3 pg (26.0-34.0); MCHC 31.4 g/dL (31.0-37.0); MCV 90.3 fL (80.0-100.0); MEAN PLATELET VOLUME 9.1 fL (7.4-10.4); MONOCYTES 6.7 % (2-11); NEUTROPHILS 64.6 % (40-80); RBC 3.21 10x6/uL (4.00-5.40); RDW 17.8 % (11.5-14.5); WBC 11.4 10x3/uL (4.8-10.8)
[2019-02-07 08:14] LABS: PLATELET COUNT 517 10x3/uL (130-400)
--- NOTE | 2019-02-07 10:19 | NUR ---
THE PATIENT WAS LYING IN BED AND LISTENING TO MUSIC WHEN STAFF ENTERED HER ROOM. BED IS IN THE LOW POSITION WITH SIDERAILS X3 AND CALL LIGHT WITHIN REACH. THE PATIENT WAS EDUCATED ON THE NEED TO CALL FOR STAFF WHENEVER SHE NEEDS TO GET OUT OF BED AND DEMOSNTRATES UNDERSTANDING VIA TEACHBACK METHOD. THE PATIENT APEPARS COMFORTABLE WITH NO QUESTIONS AT THIS TIME.
--- NOTE | 2019-02-07 18:40 | NUR ---
BEDSIDE REPORT COMPLETE. ASSISTED PT TO RESTROOM AND BACK TO BED WITH MIN ASSIST. DENIES ANY OTHER NEEDS OR PAIN. VS STABLE. NO SIGNS OF DISTRESS NOTED. LEFT UPPER ARM MIDLINE DRESSING C/D/I, SITE FREE FROM REDNESS OR SWELLING. CALL LIGHT AND WATER WITHIN REACH, FALL PRECAUTIONS IN PLACE
[2019-02-07 20:30] VITALS: BP 124/59
--- NOTE | 2019-02-07 21:25 | NUR ---
REMOVED OLD ABDOMINAL DRESSING SMALL AMOUNT OF BLOOD TINGED DRAINAGE NOTED. CLEANSED INCISION SITE WITH WOUND CLEANSER, PAT DRY WITH 4X4, ABD PAD SECURED WITH MEDIPORE TAPE. LLQ COLOSTOMY CHANGED D/T OLD ONE LEAKING. SKIN AROUND STOMA EXCORIATED.
--- NOTE | 2019-02-08 01:00 | NUR ---
ASSISTED TO RESTROOM AND BACK TO BED WITH MIN ASSIST. DENIES ANY NEEDS AND PAIN IS CONTROLLED AT THIS TIME. WILL CONTINUE TO MONITOR
--- NOTE | 2019-02-08 06:32 | NUR ---
LYING IN BED EYES CLOSED RESTING. NO SIGNS OF DISTRESS NOTED. CALL LIGHT AND WATER WITHIN REACH, FALL PRECAUTIONS IN PLACE. WILL CONTINUE TO MONITOR
[2019-02-08 08:00] VITALS: BP 115/60
--- NOTE | 2019-02-08 08:00 | NUR ---
SHIFT ASSMT COMPLETED.DRSG TO ABD WITH SLIGHT DRAINAGE ON TOP OF DRSG.COLOSTOMY LEAKING WINE COLORED DRAINAGE OUT OUTER LOWER END OF COLOSTOMY;SMALL AMT.COLOSTOMY APPLIANCE CHANGED.ABD DRSG CHANGED.
--- NOTE | 2019-02-08 10:56 | RHP ---
PATIENT: BETSY PERRY MEDICAL RECORD: [id number] ACCOUNT: [id number] LOCATION:[id number] : [birth year] ADMISSION DATE: 02/04/19 REHABILITATION HISTORY AND PHYSICAL EXAMINATION POST ADMISSION PHYSICIAN EXAMINATION DATE OF ADMISSION: 02/04/2019 ADMITTING DIAGNOSIS: Critical illness myopathy. HISTORY OF PRESENT ILLNESS: The patient is a 53-year-old morbidly obese female with history of hypertension, hypothyroidism, diverticulitis, fibromyalgia and arthritis, who presented to the ER at [facility] with complaints of abdominal pain. Pain was in her left lower quadrant. CT showed a sigmoid diverticulosis with wall thickening and adjacent inflammation with a small amount of air significant for a perforation. She was transferred to [facility] for higher level of care. General surgery was consulted. She was placed on broad-spectrum IV antibiotics, hemodynamic support, IV fluids, serial exams and narcotics for pain control. On 01/28/2019, she developed a temperature of 100 degrees and persistent worsening of her leukocytosis. She went to the OR for Sherif procedure, a sigmoid colectomy with descending colostomy with takedown of the splenic flexure with a hand-assisted laparoscopic surgery. The patient remained intubated after the procedure and did well with pressure support. She was extubated 1 day later, placed on 2 liters. She did have some hypotension and problems with hypertension during her stay and had elevation of her blood counts. She was placed on appropriate antibiotics and doing much better. The patient was discharged to inpatient rehab. She has got critical care myopathy and needs strengthening. Previously, she was moderate independent with a cane for ADLs and mobility. Currently, she has prolonged immobility, progressive generalized weakness, especially in her lower extremities affecting her tolerance to PT. She is very fatigued, has limited flexion and extension of her lower extremities. Proximal muscle strength is decreased. She is mod-to-max assist for ADLs, mod-to-max assist for jqh-xy-donqd and rnq-mm-cpelx, but she is highly motivated to regain her strength and hopefully return back home. COMORBIDITIES: Include septic shock, perforated diverticula, postop respiratory insufficiency, sepsis, acute blood loss anemia, COPD, iron-deficiency, hypertension, hyperlipidemia, hypothyroidism, fibromyalgia, opioid dependence, tobacco use, morbid obesity and debility. PAST MEDICAL HISTORY: Significant for neuropathy, fibromyalgia, Baird's palsy, hypothyroidism, hyperlipidemia, diverticulitis, arthritis, depression, tobacco use. PAST SURGICAL HISTORY: As above. ALLERGIES: PERCOCET, MEPERIDINE, EGGS AND PROTONIX. CURRENT MEDICATIONS: Include B12, she is getting 1000 mcg subQ daily. She is on Zestril 30 mg daily. She is on Pepcid 10 mg daily, Levaquin 750 mg daily, Lovenox 40 mg subQ daily, Pristiq 50 mg daily, Os-Shabbir with D daily. She is on Synthroid 175 mcg daily, nystatin powder topically b.i.d., Zanaflex 4 mg t.i.d., naproxen 500 mg b.i.d., morphine CR 30 mg b.i.d., Flagyl 500 mg t.i.d., Ventolin updrafts t.i.d., [place] 7.5 one tablet every 4 hours p.r.n., Narcan p.r.n., HISTORY AND PHYSICAL [id number] BETSY PERRY opioid reversal if needed, and polyethylene glycol 17 grams in 8 ounces of water daily. HABITS: Does have a history of tobacco use. FAMILY HISTORY: Noncontributory. SOCIAL HISTORY: The patient hopes to return back home and get back to her prior level of functioning. REVIEW OF SYSTEMS: GENERAL: Does complain of some weakness and fatigue. HEENT: Denies cold, cough, or congestion. CARDIOVASCULAR: Denies chest pain. PHYSICAL EXAMINATION: VITAL SIGNS: Stable, afebrile. GENERAL: A morbidly obese female who is 5 feet 5 inches, 276 pounds. HEENT: Normocephalic and atraumatic. Mucosa moist. NECK: Supple. No lymphadenopathy. LUNGS: Clear at this time in upper [place], decreased breath sounds in the bases. HEART: Regular rate and rhythm. ABDOMEN: Soft, benign. Her colostomy site does appear to be dehiscing in a couple of areas. EXTREMITIES: No clubbing, cyanosis or edema. NEUROLOGIC: She does have noted weakness in her lower extremities with 3/5 muscular strength. LABORATORY DATA: Her admit sodium is 141, potassium 4.1, BUN and creatinine of 10 and 0.8 and blood sugar is noted to be 102. Her white count is 12.8, H&H of 10 and 31 and platelet count is noted to be 411. 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 The patient has potential to make improvement. We instituted the following multidisciplinary therapies including not limited to physical, occupational, respiratory, speech, nutritional services, prosthetics and orthotics. Given her complex medical conditions and risks for more complications, rehabilitation services cannot be provided at a low level of care such as skilled nurse facility. PLAN: 1. Admit to [facility] for inpatient therapy to include the following disciplines; A. Physical therapy to improve gait, all transfer skills and bed mobility to a modified independent level. B. Occupational therapy to a modified independent level. C. Case management to assist with discharge planning and placement options. D. Nutrition to assist with nutritional needs. E. Rehabilitation nursing to assist in monitoring the patient's underlying medical conditions and to assist with any type of bowel or bladder management. 2. The patient's current medication and medical care will be continued. 3. The patient will be placed on standard fall precautions. 4. The patient's estimated length of stay is approximately 7-10 days. HISTORY AND PHYSICAL [id number] BETSY PERRY 5. We will discuss the patient during care team staff meeting this week. TRANSINT:[id number] Voice Confirmation ID: [id number] DOCUMENT ID: [id number] RAJAN notes whether there has been none or any medical/functional change since admission: - No change since prescreen. RAJAN attests patient continues to be appropriate for IRF: - Continues to be appropriate. YENIFER NEWTON MD at 1056 CC: [id number] DICTATION DATE: 02/05/19 1237 MEDIA SERVICES SPECIALIST: 02/05/19 1311 ADM IN [facility] [address] [place] [address]
--- NOTE | 2019-02-08 14:12 | NUR ---
PATIENT ADMITTED TO REHAB FROM ACUTE FLOOR. SHE WAS TRANSFERED FROM [facility] TO [facility] FOR A HIGHER LEVEL OF CARE. HER PCP IS DR. FERNANDO . SHE HAS NO DME AT HOME . HER DISCHARGE PLANS ARE FOR HER TO RETURN HOME WITH HER SISTERS HELP. WILL CONTINUE TO FOLLOW WITH PATIENT.
--- NOTE | 2019-02-08 16:00 | NUR ---
RESTING QUIETLY VISITING WITH FAMILY.
[2019-02-08 20:00] VITALS: BP 125/71; BP 141/88
--- NOTE | 2019-02-08 20:12 | NUR ---
AWAKE AND ALERT. DR ROSE VISITED AT 1930 AND ASSESSED AND DRAINED ABDOMINAL INCISIONS AND ASSESSED COLOSTOMY. NO NEW ORDERS. ABDOMINAL INCISIONS CLEANED AND DRESSING REAPPLIED. COLOSTOMY BAG CHANGED. NOTED FORMED BROWN STOOL IN BAG. ASSISTED TO BATHROOM AND BACK TO BED. NO ACUTE DISTRESS NOTED. CALL LIGHT IN REACH.
--- NOTE | 2019-02-09 01:17 | NUR ---
COLOSTOMY BAG CAME OFF AGAIN. STOMA CLEANED AND NEW WAFER AND COLOSTOMY BAG APPLIED. ABDOMINAL DRESSING NOTED WITH LARGE ARMOUNT OF SEROUSANQUINOUS DRAINAGE. BANDAGE REMOVED. INCISIONS CLEANED AND NEW BADAGE APPLIED.
--- NOTE | 2019-02-09 05:17 | NUR ---
RESTING IN BED WITH RESPIRATIONS UNLABORED. NO ACUTE CHANGES IN CONDITION THIS SHIFT. HAS BEEN UP FREQUENTLY TO VOID THIS SHIFT SO ONLY SLEPT IN MODERATE INTERVALS. COLOSTOMY INTACT. ABDOMINAL DRESSING IN PLACE. CALL LIGHT IN REACH.
[2019-02-09 06:22] LABS: BASOPHILS 0.6 % (0-2); EOSINOPHILS 2.6 % (0-7); HEMATOCRIT 31.7 % (36.0-48.0); HEMOGLOBIN 9.9 g/dL (12-16); IMMATURE GRANULOCYTES 1.4 % (0-5); LYMPHOCYTES 20.3 % (15-50); MCH 28.1 pg (26.0-34.0); MCHC 31.2 g/dL (31.0-37.0); MCV 90.1 fL (80.0-100.0); MEAN PLATELET VOLUME 8.6 fL (7.4-10.4); MONOCYTES 6.8 % (2-11); NEUTROPHILS 68.3 % (40-80); PLATELET COUNT 547 10x3/uL (130-400); RBC 3.52 10x6/uL (4.00-5.40); RDW 17.6 % (11.5-14.5); WBC 12.7 10x3/uL (4.8-10.8)
[2019-02-09 06:38] LABS: ANION GAP 9.7 mmol/L (8-16); CALCIUM 8.7 mg/dL (8.5-10.1); CARBON DIOXIDE 30.8 mmol/L (21.0-32.0); CREATININE - SERUM 0.9 mg/dL (0.6-1.3); POTASSIUM - SERUM 4.5 mmol/L (3.5-5.1)
--- NOTE | 2019-02-09 08:00 | NUR ---
SHIFT ASSMT COMPLETED.
[2019-02-09 08:28] VITALS: BP 150/91
--- NOTE | 2019-02-09 12:00 | NUR ---
EATING LUNCH.CL IN REACH.
--- NOTE | 2019-02-09 14:14 | NUR ---
CARE TEAM MEETING: PATIENT IS PROGRSSING IN THERAPY, WILL CONTIUE TO FOLLOW WITH PATIENT. DISCHARGE PLANS ARE TO RETURN HOME. PATIENT WILL BE RA AT NEXT MEETING.
--- NOTE | 2019-02-09 15:29 | NUR ---
Nutrition Follow-up: Diet: Diabetic + Glucerna with meals PO intake: 75-100%, reports good appetite and is drinking Glucerna Labs noted, significant meds: levaquin and flagyl +BM Wt: 275# (02/05/19) RD Following
--- NOTE | 2019-02-09 16:00 | NUR ---
INDEPENDENT IN ROOM.DENIES NEEDS.
--- NOTE | 2019-02-09 19:10 | NUR ---
BEDSIDE REPORT COMPLETE. PATIENT SITTING UP ON SIDE OF BED VISITING WITH FAMILY. DENIES ANY NEEDS OR PAIN. NO SIGNS OF DISTRESS NOTED. CALL LIGHT AND WATER WITHIN REACH, FALL PRECAUTIONS IN PLACE. WILL CONTINUE TO MONITOR
[2019-02-09 21:02] VITALS: BP 138/84
--- NOTE | 2019-02-10 00:42 | NUR ---
QUIET HOURS. LYING IN BED EYES CLOSED RESTING. NO SIGNS OF DISTRESS NOTED. WILL CONTINUE TO MONITOR
--- NOTE | 2019-02-10 01:57 | NUR ---
COLOSTOMY LEAKING, REMOVED OLD APPLIANCE CLEANSED AREA. PREPPED AREA AND PLACED NEW APPLIANCE.
--- NOTE | 2019-02-10 04:14 | NUR ---
LYING IN BED SUPINE EYES CLOSED RESTING. RR EVEN AND UNLABORED. WILL CONTINUE TO MONITOR
--- NOTE | 2019-02-10 06:19 | NUR ---
LYING IN BED RESTING QUIETLY
--- NOTE | 2019-02-10 08:19 | NUR ---
PT RESTING IN BED WITH EYES OPEN CALL LIGHT IN REACH NO PROBLEMS WILL MONITER
[2019-02-10 08:54] VITALS: BP 118/76
--- NOTE | 2019-02-10 18:00 | NUR ---
PT RESTING IN BED WITH EYES OPEN CALL LIGHT IN REACH WILL MONITER
--- NOTE | 2019-02-10 19:10 | NUR ---
BEDSIDE REPORT COMPLETE. SITTING UP ON SIDE OF BED READING. NO CONCERNS VOICED. NO SIGNS OF DISTRESS NOTED. CALL LIGHT AND WATER WITHIN REACH, FALL PRECAUTIONS IN PLACE. WILL CONTINUE TO MONITOR
[2019-02-10 20:01] VITALS: BP 102/72
--- NOTE | 2019-02-11 00:04 | NUR ---
LYING IN BED EYES CLOSED RESTING. RR EVEN AND UNLABORED. WILL CONTINUE TO MONITOR
--- NOTE | 2019-02-11 02:37 | NUR ---
SITTING UP ON SIDE OF BED ORGANIZING PERSONAL ITEMS. NO SIGNS OF DISTRESS NOTED. WILL CONTINUE TO MONITOR
--- NOTE | 2019-02-11 06:40 | NUR ---
SITTING UP IN BED READING BIBLE. NO CONCERNS VOICED.
[2019-02-11 08:00] VITALS: BP 108/45
--- NOTE | 2019-02-11 08:00 | NUR ---
PT RESTING IN BED WITH EYES OPEN CALL LIGHT IN REACH NO PROBLEMS WILL MONITER
--- NOTE | 2019-02-11 17:26 | NUR ---
PT RESTING IN BED WITH EYES OPEN EATING SUPPER TOLERATING WELL
[2019-02-11 19:26] VITALS: BP 109/66
--- NOTE | 2019-02-11 19:27 | NUR ---
AWAKE AND ALERT. RESTING IN BED WITH RESPIRATIONS UNLABORED. COLOSTOMY BAG INTACT WITH NOTED SOFT BROWN STOOL IN BAG. ABDOMINAL DRESSING DRY AND INTACT. NO ACUTE DISTRESS NOTED. CALL LIGHT IN REACH.
--- NOTE | 2019-02-12 02:16 | NUR ---
RESTING IN BED WITH EYES CLOSED AND RESPIRAIONS UNLABORED. COLOSTOMY CHANGED EARLIER IN SHIFT. REMAINS INTACT. CALL LIGHT IN REACH.
--- NOTE | 2019-02-12 05:19 | NUR ---
QUIET HOURS. NO ACUTE CHANGES IN CONDITION THIS SHIFT. COLOSTOMY BAG INTACT. ABDOMINAL DRESSING DRY AND INTACT. NO DISTRESS NOTED. CALL LIGHT IN REACH.
[2019-02-12 08:00] VITALS: BP 136/58
--- NOTE | 2019-02-12 08:00 | NUR ---
shift assmt completed.breakfast tray given.denies needs.
--- NOTE | 2019-02-12 12:00 | NUR ---
sitting up on side of bed.lunch given.
[2019-02-12 19:18] VITALS: BP 114/50
--- NOTE | 2019-02-12 19:23 | NUR ---
AWAKE AND ALERT. RESPIRATIONS UNLABORED. XRAY OF ABDOMEN DONE AT 1855 AND RESULTS PENDING. PATIENT REPORTS FEELINGS OF DISCOMFORT IN ABDOMEN WITH "BURING SENSTATION" IN UPPER ABDOMEN. COLOSTOMY BAG INTACT. DRESSING TO ABDOMINAL INCISION DRY AND INTACT. NO ACUTE DISTRESS NOTED. PATIENT UP AD HELLEN.
--- NOTE | 2019-02-13 01:14 | NUR ---
RESTING IN BED WITH RESPIRATIONS UNLABORED. NO DISTRESS NOTED. CALL LIGHT IN REACH.
--- NOTE | 2019-02-13 02:16 | NUR ---
MEDICATED FOR PAIN. SEE MAR, COLOSTOMY BAG AND WAIFER CHANGED DUE TO WAIFER BEING LOOSE. MEDIUM BROWN FORMED STOOL NOTED IN COLOSTOMY BAG. ABDOMEN SOFT.
--- NOTE | 2019-02-13 06:21 | NUR ---
QUIET HOURS. AWAKE AT INTERVALS AND AMBULTED IN HALLS. STEADY GAIT. NO ACUTE DISTRESS NOTED. COLOSTOMY INTACT.
--- NOTE | 2019-02-13 08:00 | NUR ---
SHIFT ASSMT COMPLETED.BREAKFAST GIVEN.STATES FEELING BETTER.DENIES NEEDS.
--- NOTE | 2019-02-13 12:00 | NUR ---
FINISHED SHOWER.DRSG AND COLOSTOMY CHANGED.
--- NOTE | 2019-02-13 16:00 | NUR ---
SITTING ON SIDE OF BED READING.CL IN REACH.
--- NOTE | 2019-02-13 19:10 | NUR ---
AWAKE AND ALERT. UP AD HELLEN IN ROOM. COLOSTOMY INTACT. ABDOMINAL DRESSING DRY AND INTACT. VISITING WITH FAMILY. NO ACUTE DISTRESS NOTED.
[2019-02-13 19:48] VITALS: BP 93/49
--- NOTE | 2019-02-13 19:49 | NUR ---
PATIENT NOTED CRYING. STATES HER PLANS AFTER DISCHARGE WERE TO STAY WITH HER MOTHER BUT HER BROTHER JUST CAME BY AND TOLD HER SHE COULDNT STAY THERE. THE BROTHER APPARANTLY OWNS THE PROPERTY. I TOLD HER I WOULD LEAVE MESSAGE FOR [employer] TO HAVE HER CHECK FOR ALTERNATIVE RESOURCES. SHE VOICED UNDERSTANDING.
--- NOTE | 2019-02-14 00:51 | NUR ---
AWAKE AND ALERT. WATCHING TV IN BED. CALMER AND LESS TEARFUL NOW. RESPIRATIONS UNLABORED. CALL LIGHT IN REACH.
--- NOTE | 2019-02-14 03:03 | NUR ---
RESTING IN BED AFTER EFFECTIVE PAIN MEDICATION. HASNT SLEPT MUCH TONIGHT BUT NO ACUTE DISTRESS NOTED. CALL LIGHT IN REACH.
--- NOTE | 2019-02-14 05:42 | NUR ---
UP ABULATING AD HELLEN. NO DISTRESS NOTED. HAS NOT SLEPT MUCH TONIGHT. STATES IT IS BECAUSE SHE HAS A LOT TO THINK ABOUT WHAT SHE IS GOING TO DO AFTER DISCHARGE.
[2019-02-14 06:37] LABS: BASOPHILS 0.7 % (0-2); EOSINOPHILS 2.6 % (0-7); HEMATOCRIT 35.5 % (36.0-48.0); HEMOGLOBIN 11.1 g/dL (12-16); IMMATURE GRANULOCYTES 1.5 % (0-5); LYMPHOCYTES 23.9 % (15-50); MCH 28.6 pg (26.0-34.0); MCHC 31.3 g/dL (31.0-37.0); MCV 91.5 fL (80.0-100.0); NEUTROPHILS 62.3 % (40-80); PLATELET COUNT 586 10x3/uL (130-400); RBC 3.88 10x6/uL (4.00-5.40); RDW 17.8 % (11.5-14.5); WBC 10.8 10x3/uL (4.8-10.8)
[2019-02-14 07:01] LABS: ANION GAP 12.7 mmol/L (8-16); CALCIUM 8.8 mg/dL (8.5-10.1); CARBON DIOXIDE 28.5 mmol/L (21.0-32.0); POTASSIUM - SERUM 5.2 mmol/L (3.5-5.1)
[2019-02-14 07:47] VITALS: BP 108/63
--- NOTE | 2019-02-14 10:18 | NUR ---
PATIENT RESTING IN BED, COLOSTOMY APPLIANCE EMPTIED WITH FORMED STOOL NOTED. DRESING TO ABDOMEN C/D/I, PATIENT REQUEST TO CHANGE DRESSING TO ABDOMEN AFTER THERAPY. MEDICATIONS GIVEN FOR PAIN TO SHOULDERS AND BACK, CL IN REACH
--- NOTE | 2019-02-14 14:23 | NUR ---
DRESSING CHANGED TO MID ABDOMEN FOLLOWING PATIENTS SHOWER. NO S/S OF INFECTION NOTED.
--- NOTE | 2019-02-14 18:45 | NUR ---
BEDSIDE REPORT COMPLETE. PT SITTING UP ON SIDE OF BED READING BIBLE. DENIES ANY NEEDS OR PAIN. NO SIGNS OF DISTRESS NOTED. CALL LIGHT AND WATER WITHIN REACH, FALL PRECAUTIONS IN PLACE. WILL CONTINUE TO MONITOR
[2019-02-14 20:51] VITALS: BP 99/62
--- NOTE | 2019-02-14 23:53 | NUR ---
QUIET HOURS. PT LYING IN BED EYES CLOSED RESTING. NO SIGNS OF DISTRESS NOTED. WILL CONTINUE TO MONITOR
--- NOTE | 2019-02-15 02:34 | NUR ---
SITTING UP ON SIDE OF BED EATING A SNACK.
--- NOTE | 2019-02-15 05:34 | NUR ---
SITTING UP ON SIDE OF BED READING BIBLE AND LISTENING TO MUSIC. NO SIGNS OF DISTRESS NOTED.
[2019-02-15 07:20] LABS: ANION GAP 12.4 mmol/L (8-16); CALCIUM 8.6 mg/dL (8.5-10.1); CARBON DIOXIDE 28.7 mmol/L (21.0-32.0); CREATININE - SERUM 1.2 mg/dL (0.6-1.3); POTASSIUM - SERUM 5.1 mmol/L (3.5-5.1)
--- NOTE | 2019-02-15 07:49 | NUR ---
AWAKE AND ALERT. BREAKFAST SERVED. NO DISTRESS NOTED. CL IN REACH. SITTING IN WC.
[2019-02-15 07:51] VITALS: BP 106/59
[2019-02-15 07:55] VITALS: BP 101/41
[2019-02-15] MEDS ORDERED: KLONOPIN0.5 MG PO (08:28)
[2019-02-15] MEDS ORDERED: LISINOPRIL10 MG PO (08:28)
[2019-02-15] MEDS ORDERED: MS CONTIN30 MG PO (08:28)
[2019-02-15] MEDS ORDERED: HYDROCODONE-IB1 EAC3 PO (08:29)
[2019-02-15] MEDS ORDERED: NAPROXEN250 MG PO (08:29)
--- NOTE | 2019-02-15 09:42 | NUR ---
PATIENT DISCHARGING HOME TODAY. [facility] WILL PROVIDE THERAPY AT HOME. [facility] WILL PROVIDE OSTOMY SUPPLIES TO PATIENT.AN APPOINTMENT WITH DR. FERNANDO PER SISTER IS HIS CLINICAL NUTRITION MANAGER. DR. ROSE 02/24/19 @ 11:00, DR. BRAR 05/17/19 @ 2:40, PATIENT TO BE A [facility] OUT[facility]. 04/17/19 @ 9:00 FOR PFT AND CXR. DISCHARGE INSTRUCTIONS WITH [employer] DATA FAXED TO PCP, HOME HEALTH AND REVIEWED WITH PATIENT. PATIENT CHOICE FORMS AND [facility] FORMS SIGNED, COPY GIVEN TO PATIENT AND FILED IN CHART.
--- NOTE | 2019-02-15 12:52 | NUR ---
NO CHANGE IN ASSESSMENT. WAITING FOR SISTER TO PICK HER UP FOR DC HOME.
== END 2019-02-15 13:31 | disposition home health service (06) | DRG 91 ==
LOC: D.REHAB 15:49
PROVIDERS: ADMIT Emergency Medicine; ATTEND Emergency Medicine
DX: G72.81 Critical illness myopathy (principal); A41.9 Sepsis, unspecified organism; R65.21 Severe sepsis with septic shock; K63.1 Perforation of intestine (nontraumatic); K65.1 Peritoneal abscess; D62 Acute posthemorrhagic anemia; F11.20 Opioid dependence, uncomplicated; N17.9 Acute kidney failure, unspecified; I10 Essential (primary) hypertension; E03.9 Hypothyroidism, unspecified; E66.01 Morbid (severe) obesity due to excess calories; R53.81 Other malaise; F17.200 Nicotine dependence, unspecified, uncomplicated; D50.9 Iron deficiency anemia, unspecified; E78.5 Hyperlipidemia, unspecified; M79.7 Fibromyalgia; R06.89 Other abnormalities of breathing; J44.9 Chronic obstructive pulmonary disease, unspecified

== ENCOUNTER → 2019-02-28 13:10 | Outpatient (CLI) | payer MEDICARE ==
[2019-02-05 15:39] VITALS: BMI 45.7
[~2019-02-28 13:10] MED LIST changes: +KLONOPIN0.5 MG PO; +LISINOPRIL10 MG PO
== END | disposition home or self-care (01) ==
LOC: D.RAD 13:10
PROVIDERS: ATTEND Pain Medicine Interventional Pain Medicine
DX: M25.551 Pain in right hip (principal); M25.552 Pain in left hip; M25.562 Pain in left knee; M25.561 Pain in right knee; G89.4 Chronic pain syndrome

== ENCOUNTER 2019-05-16 07:53 | Inpatient (IN) | payer MEDICARE ==
[~2019-05-16] VITALS: Ht 165.1 cm; Wt 123.8 kg
[2019-05-17] MEDS ORDERED: MS CONTIN60 MG PO (09:36)
[2019-05-17] MEDS ORDERED: HYDROCODONE-IB1 EAC3 PO (09:44)
--- NOTE | 2019-05-17 10:00 | NUR ---
PHONE BEAR: PATIENT REPORTS HER FATHER DUE TO COMPLICATION OF ANESTHESIA & REQUESTS "SAME TYPE OF ANESTHESIA" PROVIDED FOR COLECTOMY. DR. SANTORO INFORMED OF ABOVE, FRONT OF CHART FLAGGED.
[2019-05-18 09:12] VITALS: BP 139/81; BMI 45.5
[2019-05-18 10:24] LABS: HEMATOCRIT 48.1 % (36.0-48.0); HEMOGLOBIN 15.6 g/dL (12-16); MCH 28.8 pg (26.0-34.0); MCHC 32.4 g/dL (31.0-37.0); MCV 88.9 fL (80.0-100.0); MEAN PLATELET VOLUME 9.8 fL (7.4-10.4); RBC 5.41 10x6/uL (4.00-5.40); RDW 14.7 % (11.5-14.5); WBC 15.3 10x3/uL (4.8-10.8)
--- NOTE | 2019-05-18 18:03 | NUR ---
PT ARRIVED TO PACU ON OLD BROWN BED, POWDERER FOOT OF BED #0086. UPON ARRIVAL TO PACU BED WAS NON-FUNCTIONING. HOB, FOB, TRENDELENBERG ALL NON-OP. CANNOT SIT PATIENT UP. LEAD MAINTENANCE TECHNICIAN CALLED AND INFORMED PER RAFA GRACIA RN.
--- NOTE | 2019-05-18 18:53 | NUR ---
1828 - DIFFERENT BED BROUGHT BY EVS. PT TRANSFERRED WITH OUT INCIDENT, ALL VS STABLE.
--- NOTE | 2019-05-18 19:15 | NUR ---
RCVD TO ROOM 2226 VIA HOSPITAL STAFF, VSS, NO S/S OF ANY ACUTE DISTRESS AT THIS TIME. ORDERS RCVD AND ACKNOWLEDGED.
[2019-05-18 19:30] VITALS: BP 136/70
--- NOTE | 2019-05-18 20:06 | NUR ---
PT REFUSED NICODERM PATCH AT THIS TIME. ALSO REQUESTED TYLENOL TO BE CHANGED TO ADVIL AND TO START ARTIFICIAL TEARS. DR. ROSE NOTIFIED AND AGREED TO THIS CHANGES.
--- NOTE | 2019-05-18 22:44 | NUR ---
CONTINUES TO COMPLAIN OF EYE PAIN, DR. ROSE ON FLOOR AND ASSESSED AND GAVE NEW ORDER FOR EYE DROPS. WILL START WHEN RECVD.
[2019-05-19] VITALS (7 sets, daily range): BP systolic 106–173; BP diastolic 70–86; Ht 165.1 cm; Wt 123.8 kg
[2019-05-19 05:09] LABS: HEMATOCRIT 44.1 % (36.0-48.0); MCH 28.3 pg (26.0-34.0); MCHC 31.7 g/dL (31.0-37.0); MCV 89.3 fL (80.0-100.0); MEAN PLATELET VOLUME 9.8 fL (7.4-10.4); PLATELET COUNT 431 10x3/uL (130-400); RBC 4.94 10x6/uL (4.00-5.40); RDW 14.5 % (11.5-14.5); WBC 20.6 10x3/uL (4.8-10.8)
[2019-05-19 05:36] LABS: ALBUMIN 3.1 g/dL (3.4-5.0); ALKALINE PHOSPHATASE 99 U/L (46-116); ALT (SGPT) 20 U/L (10-68); BILIRUBIN - TOTAL 0.36 mg/dL (0.2-1.3); CALC OSMOLALITY 281 mosm/kg (275-300); CALCIUM 8.7 mg/dL (8.5-10.1); CARBON DIOXIDE 22.2 mmol/L (21.0-32.0); CHLORIDE - SERUM 105 mmol/L (98-107); CREATININE - SERUM 1.1 mg/dL (0.6-1.3); GLUCOSE 135 mg/dL (74-106); PHOSPHOROUS 4.5 mg/dL (2.5-4.9); POTASSIUM - SERUM 4.3 mmol/L (3.5-5.1); PROTEIN - SERUM 6.9 g/dL (6.4-8.2); SODIUM 139 mmol/L (136-145); TROPONIN-I < 0.017 ng/mL (0.000-0.060); UREA NITROGEN 18 mg/dL (7-18); eGFR NON AFRICAN AMERICAN 55 mL/min (90-120)
[2019-05-19 06:02] LABS: LYMPHOCYTES 7 % (15-50); MONOCYTES 6 % (2-11); NEUTROPHILS 85 % (40-80); PLATELET ESTIMATE NORMAL
--- NOTE | 2019-05-19 08:15 | NUR ---
PT STATES SHE NEEDS AN EMBOSSING PRESS OPERATOR MOLDED GOODS AT THIS POINT TO COME SEE HER EYE AND THAT THE DROPS ARE NOT WORKING, WILL SEND TEXT TO MICHELLE
--- NOTE | 2019-05-19 10:03 | NUR ---
LYING IN BED,WITHOUT DISTRESS.CALL LIGHT IN REACH
--- NOTE | 2019-05-19 17:30 | NUR ---
GIVEN 4MG ZANAFLEX FOR SPASMS. WILL MONITOR.
--- NOTE | 2019-05-19 17:30 | NUR ---
SPOKE WITH DR. MILTON BRISCOE POSSIBLE BLADDER SPASMS. NEW ORDERS RECEIVED.
--- NOTE | 2019-05-19 18:54 | NUR ---
REPORTS NO CHANGES IN SPASMS. WILL CONTINUE TO MONITOR. DENIES NEEDS. NO CHANGES NOTED.
--- NOTE | 2019-05-19 19:45 | NUR ---
PT SITTING UP IN BED WITHOUT DISTRESS, AOX4. IV RIGHT FA INFUSING NS @ 125 WITH DILAUDID TOGGLER IN USE. ROWLAND IN PLACE. ABD INCISION CDI. EYE PATCH TO LEFT EYE, STATES HAVING SOME PAIN IN EYE. PROVIDED NEW GAUZE PATCHES AND ICE CHIPS. DENIES OTHER NEEDS AT THIS TIME. CL IN REACH, WILL CTM
[2019-05-20 00:30] VITALS: BP 107/64
[2019-05-20 05:19] VITALS: BP 117/69
[2019-05-20 06:45] LABS: ANION GAP 10.9 mmol/L (8-16); CALCIUM 8.6 mg/dL (8.5-10.1); CREATININE - SERUM 0.9 mg/dL (0.6-1.3); POTASSIUM - SERUM 3.9 mmol/L (3.5-5.1)
[2019-05-20 06:48] LABS: BASOPHILS 0.4 % (0-2); EOSINOPHILS 2.4 % (0-7); HEMATOCRIT 41.2 % (36.0-48.0); HEMOGLOBIN 12.9 g/dL (12-16); IMMATURE GRANULOCYTES 0.4 % (0-5); LYMPHOCYTES 15.1 % (15-50); MCH 28.4 pg (26.0-34.0); MCHC 31.3 g/dL (31.0-37.0); MCV 90.5 fL (80.0-100.0); MEAN PLATELET VOLUME 10.3 fL (7.4-10.4); MONOCYTES 8.4 % (2-11); NEUTROPHILS 73.3 % (40-80); RBC 4.55 10x6/uL (4.00-5.40); RDW 14.8 % (11.5-14.5); WBC 15.9 10x3/uL (4.8-10.8)
[2019-05-20 06:58] LABS: PLATELET COUNT 298 10x3/uL (130-400)
--- NOTE | 2019-05-20 07:16 | NUR ---
HAS BEEN UP IN ROOM.PT IS WITHOUT DISTRESS.
[2019-05-20 08:50] VITALS: BP 105/69
--- NOTE | 2019-05-20 12:18 | NUR ---
PT STATED SHE IS VERY WEAK AND DISCOURAGED AND WOULD LIKE TO HAVE SOMETHING TO EAT, PAGED DR ROSE AND WAS TOLD PT CAN HAVE POPSICLES, NO NEEDS VOICED, BED IN LOW POSITION, CL IN REACH CONTINUE WITH PLAN OF CARE
[2019-05-20 12:28] VITALS: BP 85/51
[2019-05-20 16:58] VITALS: BP 105/78
--- NOTE | 2019-05-20 19:00 | NUR ---
MIDLINE ABDOMINAL INCISION WITH MODERATE AMOUNT OF DRAINAGE. DRESSING CHANGED. PT TOLERATED WELL. BED IS IN THE LOWEST POSITION. CALL LIGHT AND BEDSIDE TABLE ARE WITHIN REACH. SIDE RAILS X 2. PT DENIES FURTHER NEEDS.
[2019-05-20 19:30] VITALS: BP 103/58
--- NOTE | 2019-05-20 20:30 | NUR ---
ASSIST UP TO BATHROOM AND BACK TO BED. VOIDING WITHOUT DIFFICULTY.DRESSING TO MIDLINE INSICION INTACT WITHOUT DRAINAG NOTED. WOUND VAC TO LEFT ABD INTACT AND DRAINING.PATIENT CONCERNED ABOUT NOT BEING ON ANTIBIOTICS AND REQUEST DR TO BE CALLED. INFORMED PATIENT DR RICKS IS PUBLIC INFORMATION COORDINATOR. STATES " JUST FORGET IT,I WILL WAIT FOR DR ROSE TO COME BACK". ATTEMPTED TO EXPLAIN TO PATIENT I COULD CALL. DR ROSE IN TO VISIT. TALKED WITH PATIENT ABOUT CONCERNS FOR ANTIBIOTIC AND REASON FOR NOT GIVING THEM AT THIS TIME. PATIENT STATES UNDERSTANDING. CL IN REACH
--- NOTE | 2019-05-20 22:50 | NUR ---
PATIENT UP UNASSISTED TO BATHROOM,SLIPPED IN URINE WHEN RETURNING TO BED LANDING ON RIGHT SIDE. PATIENT STATES SHE HIT HEAD ON BEDFRAME BUT "NOT HARD",SMALL SKIN TEAR NOTED TO RIGHT ELBOW. NEURO CHECKS WNL,ASSISTED BACK TO BED X 3 PERSON.PLACED ON FALL PRECAUTIONS. VICKY VANGIE APPLIED TO BED AND FUNCTIONING. INSTRUCTED PATIENT TO CALL FOR ASSIST WHEN GETTING UP. CRANE RIGGER DAWSON NOTIFIED. RAZA PHILIP NOTIFIED WITH NO NEW ORDERS RECEIVED. INSTRUCTED PER ACCOUNT SUPPORT MANAGER TO NOTIFY DR ROSE IN AM OF PATIENTS FALL.T98.3 P 101 R 20 B/P 148/94 SPO2 @ 97 %.
[2019-05-21 00:30] VITALS: BP 126/66
--- NOTE | 2019-05-21 02:23 | NUR ---
I have reviewed this patient and I concur with the Shift Assessment completed by the Licensed Practical Nurse today this shift.
[2019-05-21 04:57] VITALS: BP 143/82
[2019-05-21 06:30] LABS: BASOPHILS 0.4 % (0-2); EOSINOPHILS 3.8 % (0-7); HEMATOCRIT 36.5 % (36.0-48.0); HEMOGLOBIN 11.3 g/dL (12-16); IMMATURE GRANULOCYTES 0.4 % (0-5); MCV 90.6 fL (80.0-100.0); MEAN PLATELET VOLUME 9.9 fL (7.4-10.4); MONOCYTES 6.8 % (2-11); NEUTROPHILS 73.6 % (40-80); PLATELET COUNT 305 10x3/uL (130-400); RBC 4.03 10x6/uL (4.00-5.40); RDW 14.7 % (11.5-14.5); WBC 15.4 10x3/uL (4.8-10.8)
[2019-05-21 07:03] LABS: ALBUMIN 2.4 g/dL (3.4-5.0); ALKALINE PHOSPHATASE 92 U/L (46-116); ALT (SGPT) 15 U/L (10-68); BILIRUBIN - TOTAL 0.46 mg/dL (0.2-1.3); CALC OSMOLALITY 274 mosm/kg (275-300); CALCIUM 8.1 mg/dL (8.5-10.1); CARBON DIOXIDE 25.3 mmol/L (21.0-32.0); CHLORIDE - SERUM 104 mmol/L (98-107); CREATININE - SERUM 0.8 mg/dL (0.6-1.3); GLUCOSE 100 mg/dL (74-106); MAGNESIUM - SERUM 1.8 mg/dL (1.8-2.4); PHOSPHOROUS 3.1 mg/dL (2.5-4.9); POTASSIUM - SERUM 3.6 mmol/L (3.5-5.1); PROTEIN - SERUM 5.4 g/dL (6.4-8.2); SODIUM 138 mmol/L (136-145); eGFR NON AFRICAN AMERICAN 79 mL/min (90-120)
[2019-05-21 07:20] LABS: UREA NITROGEN 10 mg/dL (7-18)
[2019-05-21 09:12] VITALS: BP 124/74
--- NOTE | 2019-05-21 11:22 | NUR ---
CHANGED ABD DRESSINGM SITE IS CDI, NO DISCOMFORT VERBALIZED, NO S/ SX OF DISTRESS, CONTINUE WITH PLAN OF CARE, PT IS UP ADLIB IN ROOM STILL HAS NOT PASSED GAS ENCOURAGED TO WALK NEEDED
[2019-05-21 13:04] VITALS: BP 116/69
[2019-05-21 16:36] VITALS: BP 109/63
--- NOTE | 2019-05-21 17:08 | NUR ---
I have reviewed this patient and I concur with the Shift Assessment completed by the Licensed Practical Nurse today this shift.
[2019-05-21 20:00] VITALS: BP 122/72
--- NOTE | 2019-05-21 21:00 | NUR ---
SITTING UP ON SIDE OF BED. ALERT.ORIENTED.NO DISTRESS NOTED. RESP UNALBORED. DRESSING TO MID ABD INCISION CDI. WOUND VAC TO LEFT ABD.IV INTACT TO LFA WITHOUT REDNESS OR EDEMA NOTED. PATIENT FINANCIAL SERVICES SPECIALIST DILAUDID IN USE FOR PAIN CONTROL. CL IN REACH
[2019-05-22] VITALS: BP 119/83
--- NOTE | 2019-05-22 02:33 | NUR ---
I have reviewed this patient and I concur with the Shift Assessment completed by the Licensed Practical Nurse today this shift.
[2019-05-22 04:00] VITALS: BP 111/68
[2019-05-22 04:35] LABS: BASOPHILS 0.6 % (0-2); EOSINOPHILS 4.5 % (0-7); HEMATOCRIT 38.2 % (36.0-48.0); HEMOGLOBIN 11.9 g/dL (12-16); IMMATURE GRANULOCYTES 0.7 % (0-5); MCH 28.1 pg (26.0-34.0); MCHC 31.2 g/dL (31.0-37.0); MCV 90.3 fL (80.0-100.0); MEAN PLATELET VOLUME 9.7 fL (7.4-10.4); MONOCYTES 6.8 % (2-11); NEUTROPHILS 65.4 % (40-80); PLATELET COUNT 371 10x3/uL (130-400); RBC 4.23 10x6/uL (4.00-5.40); RDW 14.6 % (11.5-14.5); WBC 15.3 10x3/uL (4.8-10.8)
[2019-05-22 04:47] LABS: CALC OSMOLALITY 268 mosm/kg (275-300); CALCIUM 8.6 mg/dL (8.5-10.1); CARBON DIOXIDE 22.5 mmol/L (21.0-32.0); CHLORIDE - SERUM 104 mmol/L (98-107); CREATININE - SERUM 0.7 mg/dL (0.6-1.3); GLUCOSE 88 mg/dL (74-106); POTASSIUM - SERUM 3.6 mmol/L (3.5-5.1); SODIUM 136 mmol/L (136-145); UREA NITROGEN 8 mg/dL (7-18); eGFR NON AFRICAN AMERICAN > 90 mL/min (90-120)
--- NOTE | 2019-05-22 08:31 | NUR ---
RESTING ON SIDE OF BED, IV INFUSING, CHIEF I DISPATCHER IN PLACE, NO DISTRESS NOTED, CONT TO MONITOR WOUND HEALING
--- NOTE | 2019-05-22 19:30 | NUR ---
DRESSING CHANGED TO ABD MIDLINE, TIFFANY INTACT, NO S/S OF INFECTION
--- NOTE | 2019-05-22 19:40 | NUR ---
SITTING UP IN BED. ALERT AND ORIENTED X4. STATES SHE IS PASSING GAS. WOUND VAC NOTED TO LLQ WITH SCANT AMT OF BLOODY DRAINAGE IN CANISTER. MIDLINE INCISION NOTED WITH DRSG THAT IS C/D/I. LARGE BANDAID NOTED ABOVE MIDLINE DRSG IS C/D/I. BS ARE HYPOACTIVE X4 QUADS. NS @ 50 MLHR INFUSING IN RT FOREARM. ABRASION NOTED TO RT ELBOW FROM PREVIOUS FALL. VICKY ALARM ON FOR PT SAFETY. DILAUDID PLASTICS REPAIRER IN USE. RATES PAIN IN ABD 4. CL IN REACH. CHEWING GUM. NO DISTRESS.
[2019-05-22 20:54] VITALS: BP 126/73
--- NOTE | 2019-05-22 21:55 | NUR ---
REQUESTING THAT STAFF NOT USE BED ALARM. EXPLAINED BED ALARM WAIVER TO PT AND PT VERBALIZED UNDERSTANDING AND AGREED TO SIGN FORM. FORM PLACED IN CHART.
[2019-05-23 00:27] VITALS: BP 126/74
--- NOTE | 2019-05-23 02:43 | NUR ---
REQUESTING SNACK. PT GIVEN POPSICLE AT THIS TIME.
--- NOTE | 2019-05-23 03:52 | NUR ---
LYING IN BED WATCHING TV. HAS BEEN AWAKE ALL NIGHT. REPORTS PAIN IN ABD 4 AND USES DILAUDID TELECOM MANAGER. CL IN REACH.
[2019-05-23 04:27] VITALS: BP 137/63
[2019-05-23 08:36] VITALS: BP 106/66
--- NOTE | 2019-05-23 08:45 | NUR ---
PATIENT IN BED WITH EYES CLOSED RESTING QUIETLY AT THIS TIME. IV INTACT. CALL LIGHT WITHIN REACH.
[2019-05-23 13:24] VITALS: BP 115/59
--- NOTE | 2019-05-23 13:53 | NUR ---
NUTRITION F/U PT REPORTS TOLERATING CLEAR LIQUIDS, WILL CONTINUE TO MONITOR DIET ADVANCEMENT, PT PROGRESS. RD FOLLOWING
--- NOTE | 2019-05-23 14:00 | NUR ---
PATIENT UP TO SHOWER ASSISTED BY FAMILY. IV AND WOUND VAC WRAPED. EXPLAINED NOT TO SOAK INCISION. VERBALIZED UNDERSTANDING. CALL LIGHT WITHIN REACH.
--- NOTE | 2019-05-23 14:50 | NUR ---
PATIENT SITTING UP ON SIDE OF BED WITH NO COMPLAINTS OR SIGNS OF DISTRESS. IV INTACT. RESTARTED IVF AND RECONNECTED WOUND VAC. PATIENT HAS NO COMPLAINTS. DRESSING INTACT. STATED FAMILY PUT NEW DRESSING OVER INCISION, AND THAT TIFFANY AND INCISION INTACT WITH NO REDNESS OR DRAINAGE. CALL LIGHT WITHIN REACH.
--- NOTE | 2019-05-23 16:28 | MORECARE ---
CASE MANAGEMENT DISCHARGE SUMMARY PATIENT: BETSY PERRY UNIT: [id number] ADM DATE: 05/18/19 AGE: 53 : 61 SEX: F ROOM/BED: D.2226 AUTHOR: ADWOA CASTILLO PHYSICIAN: REFERRING PHYSICIAN: RAFA ROSE MD DATE OF SERVICE: 05/23/19 Discharge Plan Patient Name: BETSY PERRY [facility] [facility] 1965 Planned Disposition: Home with Home Health Anticipated Discharge Date: 05/23/19 Discharge Date: Expected LOS: 5 Initial Reviewer: [email or web address] Initial Review Date: 05/23/2019 Generated: 05/23/19 5:27 pm DCPIA - Discharge Planning Initial Assessment Updated by [email or web address]: Юлия Haynes on 05/23/19 4:24 pm * Is the patient Alert and Oriented? Yes * How many steps to enter\exit or inside your home? 1/0 * PCP Dr. Graham * Pharmacy [facility] in [place] * Preadmission Environment Home Alone * ADLs Independent * Equipment Cane Other Shower Chair * Other Equipment Rollator walker * List name and contact numbers for known caregivers / representatives who currently or will assist patient after discharge: Cindy Fox [facility] [phone] * Verbal permission to speak to the caregivers and representatives has been obtained from the patient. Yes * Community resources currently utilized None * Additional services required to return to the preadmission environment? Yes * Can the patient safely return to the preadmission environment? Yes * Has this patient been hospitalized within the prior 30 days at any hospital? No Patient Name: BETSY PERRY Page [id number] at 1628 All edits/amendments must be made on the electronic document DICTATION DATE: 05/23/191626 ASSISTANT UNIT FORESTER: JOANIE 05/23/191626 RPT#: [id number] DC DATE: STATUS: ADM IN [facility] [address] [place] [address] END OF REPORT
--- NOTE | 2019-05-23 16:37 | MORECARE ---
CASE MANAGEMENT DISCHARGE SUMMARY PATIENT: BETSY PERRY UNIT: [id number] ADM DATE: 05/18/19 AGE: 53 : 61 SEX: F ROOM/BED: D.2226 AUTHOR: ADWOA CASTILLO PHYSICIAN: REFERRING PHYSICIAN: RAFA ROSE MD DATE OF SERVICE: 05/23/19 Discharge Plan Patient Name: BETSY PERRY Facility: [facility]:[place] : 1965 Planned Disposition: Home with Home Health Anticipated Discharge Date: 05/23/19 Discharge Date: Expected LOS: 5 Initial Reviewer: [email or web address] Initial Review Date: 05/23/2019 Generated: 05/23/19 5:37 pm Comments DCP- Discharge Planning Updated by [email or web address]: Юлия Haynes on 05/23/19 3:[address] Patient Name: BETSY PERRY Admission Status: Elective Accout number: [id number] Admission Date: 05-18-2019 : 1965 Admission Diagnosis: Attending: RAFA ROSE Current LOS: 5 Anticipated DC Date: 05-23-2019 Planned Disposition: Home with Home Health Primary Insurance: MEDICARE A & B Discharge Planning Comments: CM met with patient to complete initial dc planning assessment. CM educated patient on the CM role and verbal consent given by patient to complete assessment. Patient lives at home alone. At discharge patient plans to return and feels this is a safe discharge. CM discussed availability of home health, rehab services, and medical equipment. Patient's sister is in the room and states that she will need home health because Dr. Rose states she will be going home with a wound vac. I have left a message with Dr. Rose to call me concerning wound measurements for home wound vac. YAJAIRA for [facility] in [place] signed. CM will continue to follow and will assist as needed with dc plans/needs. Amplifier Mechanic: Юлия Haynes DCPIA - Discharge Planning Initial Assessment Updated by [email or web address]: Юлия Haynes on 05/23/19 4:24 pm * Is the patient Alert and Oriented? Yes * How many steps to enter\exit or inside your home? 1/0 * PCP Dr. Graham * Pharmacy [facility] in [place] * Preadmission Environment Home Alone * ADLs Independent * Equipment Cane Other Shower Chair * Other Equipment Rollator walker * List name and contact numbers for known caregivers / representatives who currently or will assist patient after discharge: Cindy Fox - [facility] - [phone] * Verbal permission to speak to the caregivers and representatives has been obtained from the patient. Yes * Community resources currently utilized None * Additional services required to return to the preadmission environment? Yes * Can the patient safely return to the preadmission environment? Yes * Has this patient been hospitalized within the prior 30 days at any hospital? No Coverage Notice Reviewer: [id number] Sergo Haynes Notice Issued Date-Time: 05/23/2019 16:35 Notice Type: Patient Choice Letter Notice Delivered To: Patient Relationship to Patient: Self Business Process Analyst Name: Delivery Method: - Janki Days: Prior Verbal Notification: Recipient Understood Notice: Recipient Signature: Med Rec Note Co-signed by Attending: Coverage Notice Comment: Last DP export: 05/23/19 3:28 Patient Name: BETSY PERRY Page [id number] at 1637 All edits/amendments must be made on the electronic document DICTATION DATE: 05/23/191636 DANCE COSTUME DESIGNER: JOANIE 05/23/19 1637 RPT#: [id number] DC DATE: STATUS: ADM IN [facility] [address] [place] [address] END OF REPORT
[2019-05-23 16:56] VITALS: BP 146/85
--- NOTE | 2019-05-23 18:15 | NUR ---
PATIENT SITTING UP IN BED EATING REGULAR DIET. TOLERATED WITH NO NAUSEA OR VOMITTING. IV INTACT. CALL LIGHT WITHIN REACH.
--- NOTE | 2019-05-23 20:30 | NUR ---
PT RESTING IN BED. EYE CLOSED. NO SIGNS OF OF DISTRESS. BREATHING EVEN AND UNLABORED. IV SITE RT FA DRESSING CLEAN DRY AND INTACT. SKIN CLEAN DRY AND INTACT. BOWEL SOUNDS ACTIVE. ABD INCISION DRESSING CLEAN DRY AND INTACT. NO LOWER LEG SWELLING PRESENT. WILL CONTINUE PLAN OF CARE. CALL LIGHT IN REACH. BED LOWERED AND LOCKED. BED RAILS UPX2.
[2019-05-23 20:50] VITALS: BP 158/87
[2019-05-24] VITALS (7 sets, daily range): BP systolic 134–185; BP diastolic 62–103
--- NOTE | 2019-05-24 00:12 | NUR ---
I have reviewed this patient and I concur with the Shift Assessment completed by the Licensed Practical Nurse today this shift.
--- NOTE | 2019-05-24 01:50 | NUR ---
IV INFULTRATED. NEW IV SITED RT FA. ATTEMPTSX1. PT TOLERATED WELL. WILL CONTINUE IV FLUIDS.
[2019-05-24 06:49] LABS: BASOPHILS 0.7 % (0-2); EOSINOPHILS 5.8 % (0-7); HEMATOCRIT 34.1 % (36.0-48.0); HEMOGLOBIN 10.6 g/dL (12-16); IMMATURE GRANULOCYTES 0.4 % (0-5); LYMPHOCYTES 27.1 % (15-50); MCH 27.8 pg (26.0-34.0); MCHC 31.1 g/dL (31.0-37.0); MCV 89.5 fL (80.0-100.0); MEAN PLATELET VOLUME 9.8 fL (7.4-10.4); MONOCYTES 6.2 % (2-11); NEUTROPHILS 59.8 % (40-80); RBC 3.81 10x6/uL (4.00-5.40); RDW 14.2 % (11.5-14.5); WBC 11.3 10x3/uL (4.8-10.8)
[2019-05-24 06:53] LABS: PLATELET COUNT 450 10x3/uL (130-400)
[2019-05-24 06:54] LABS: ANION GAP 12.9 mmol/L (8-16); CREATININE - SERUM 0.9 mg/dL (0.6-1.3); POTASSIUM - SERUM 3.9 mmol/L (3.5-5.1)
--- NOTE | 2019-05-24 07:48 | NUR ---
PATIENT SITTING UP ON THE SIDE OF THE BED WITH IV INTACT. NO COMPLAINTS OR SIGNS OF DISTRESS. CALL LIGHT WITHIN REACH.
--- NOTE | 2019-05-24 09:07 | NUR ---
Wound vac dressing change: 05/24/19 Left lower abdomen 3.5cm x 5.5cm x 4cm Wound bed: red/beefy No muscle, tendon or bone exposed Moderate amount of sanguinous drainage / no odor settings: -125mmhg low continuous 1 black sponge for wound bed Pt tolerated well. Teaching: Dressing changes 3xwk. Home vac use.
--- NOTE | 2019-05-24 09:27 | MORECARE ---
CASE MANAGEMENT DISCHARGE SUMMARY PATIENT: BETSY PERRY UNIT: [id number] ADM DATE: 05/18/19 AGE: 53 : 61 SEX: F ROOM/BED: D.2226 AUTHOR: ADWOA CASTILLO PHYSICIAN: REFERRING PHYSICIAN: RAFA ROSE MD DATE OF SERVICE: 05/24/19 Discharge Plan Patient Name: BETSY PERRY Facility: [facility]:[place] : 1965 Planned Disposition: Home with Home Health Anticipated Discharge Date: 05/23/19 Discharge Date: Expected LOS: 5 Initial Reviewer: [email or web address] Initial Review Date: 05/23/2019 Generated: 05/24/19 10:27 am Comments DCP- Discharge Planning Updated by [id number]: Юлия Haynes on 05/23/19 3:[address] Patient Name: BETSY PERRY Admission Status: Elective Accout number: [id number] Admission Date: 05-18-2019 : 1965 Admission Diagnosis: Attending: RAFA ROSE Current LOS: 5 Anticipated DC Date: 05-23-2019 Planned Disposition: Home with Home Health Primary Insurance: MEDICARE A & B Discharge Planning Comments: CM met with patient to complete initial dc planning assessment. CM educated patient on the CM role and verbal consent given by patient to complete assessment. Patient lives at home alone. At discharge patient plans to return and feels this is a safe discharge. CM discussed availability of home health, rehab services, and medical equipment. Patient's sister is in the room and states that she will need home health because Dr. Rose states she will be going home with a wound vac. I have left a message with Dr. Rose to call me concerning wound measurements for home wound vac. YAJAIRA for [facility] in [place] signed. CM will continue to follow and will assist as needed with dc plans/needs. Retail Sales Assistant: Юлия Haynes DCPIA - Discharge Planning Initial Assessment Updated by [id number]: Юлия Haynes on 05/23/19 4:24 pm * Is the patient Alert and Oriented? Yes * How many steps to enter\exit or inside your home? 1/0 * PCP Dr. Graham * Pharmacy [facility] in [place] * Preadmission Environment Home Alone * ADLs Independent * Equipment Cane Other Shower Chair * Other Equipment Rollator walker * List name and contact numbers for known caregivers / representatives who currently or will assist patient after discharge: Cindy mosher - [phone] * Verbal permission to speak to the caregivers and representatives has been obtained from the patient. Yes * Community resources currently utilized None * Additional services required to return to the preadmission environment? Yes * Can the patient safely return to the preadmission environment? Yes * Has this patient been hospitalized within the prior 30 days at any hospital? No External Providers External Provider: [email or web address] Next Contact Date: Service Request Date: Service Type: Resolution: Reviewer: Comments: Coverage Notice Reviewer: [id number] Sergo Haynes Notice Issued Date-Time: 05/23/2019 16:35 Notice Type: Patient Choice Letter Notice Delivered To: Patient Relationship to Patient: Self Ferryboat Operator Helper Name: Delivery Method: HAND - Hand Delivered Janki Days: Prior Verbal Notification: Recipient Understood Notice: Yes Recipient Signature: Yes Med Rec Note Co-signed by Attending: Coverage Notice Comment: YAJAIRA for [facility] in [place] YAJAIRA for [facility] for wound vac Last DP export: 05/23/19 3:37 Patient Name: BETSY PERRY Page [phone] at 0927 All edits/amendments must be made on the electronic document DICTATION DATE: 05/24/19926 QUALITY ENG: JOANIE 05/24/19926 RPT#: [id number] DC DATE: STATUS: ADM IN [facility] [address] [place] [address] END OF REPORT
--- NOTE | 2019-05-24 16:00 | NUR ---
PATIENT BP INCREASED AT THIS TIME. STATED SHE IS HAVING MORE PAIN AT INCISION SITE THAN USUAL. TORADOL AND COMPENSATION ADVISOR FOR PAIN. CALL LIGHT WITHIN REACH. WILL CONTINUE TO MONITOR.
--- NOTE | 2019-05-24 18:13 | NUR ---
PATIENT WOULD LIKE STOOL SOFTENER. EXPLAINED WOULD HAVE TO SPEAK WITH PHYSICIAN. VERBALIZED UNDERSTANDING. NO QUESTIONS AT THIS TIME. IV INTACT. CALL LIGHT WITHIN REACH.
--- NOTE | 2019-05-24 23:18 | NUR ---
I have reviewed this patient and I concur with the Shift Assessment completed by the Licensed Practical Nurse today this shift.
[2019-05-25 01:00] VITALS: BP 168/106
--- NOTE | 2019-05-25 02:09 | NUR ---
PT RESTING IN BED. ALERT AND ORIENTED. NO SIGNS OF DISTRESS. BREATHING EVEN AND UNLABORED. IV SITE RT FA DRESSING CLEAN DRY AND INTACT. NO SIGNS OF INFECTION. 3LO2 NASAL CANNULA. LUNG SOUNDS CLEAR. BOWEL SOUNDS ACTIVE. MIDLINE INCISION DRESSING CLEAN DRY AND INTACT. WOUND VAC LT LOWER ABD CLEAN DRY AND INTACT. NO LOWER LEG SWELLING PRESENT. WILL CONTINUE PLAN OF CARE. CALL LIGHT IN REACH. BED LOWERED AND LOCKED. BED RAILS UPX2.
[2019-05-25 04:47] VITALS: BP 125/67
[2019-05-25 06:35] LABS: BASOPHILS 0.5 % (0-2); EOSINOPHILS 3.8 % (0-7); HEMATOCRIT 32.8 % (36.0-48.0); HEMOGLOBIN 10.2 g/dL (12-16); IMMATURE GRANULOCYTES 0.5 % (0-5); LYMPHOCYTES 18.3 % (15-50); MCH 27.8 pg (26.0-34.0); MCHC 31.1 g/dL (31.0-37.0); MCV 89.4 fL (80.0-100.0); MEAN PLATELET VOLUME 9.8 fL (7.4-10.4); MONOCYTES 5.4 % (2-11); NEUTROPHILS 71.5 % (40-80); PLATELET COUNT 422 10x3/uL (130-400); RBC 3.67 10x6/uL (4.00-5.40); RDW 14.2 % (11.5-14.5)
[2019-05-25 06:49] LABS: CALC OSMOLALITY 288 mosm/kg (275-300); CALCIUM 8.2 mg/dL (8.5-10.1); CARBON DIOXIDE 23.8 mmol/L (21.0-32.0); CHLORIDE - SERUM 110 mmol/L (98-107); CREATININE - SERUM 0.8 mg/dL (0.6-1.3); GLUCOSE 112 mg/dL (74-106); POTASSIUM - SERUM 3.7 mmol/L (3.5-5.1); SODIUM 144 mmol/L (136-145); UREA NITROGEN 14 mg/dL (7-18); eGFR NON AFRICAN AMERICAN 79 mL/min (90-120)
[2019-05-25 07:01] LABS: WBC 14.4 10x3/uL (4.8-10.8)
--- NOTE | 2019-05-25 07:10 | NUR ---
PT RESTING IN BED. NO SIGNS OF DISTRESS, IV TO RIGHT FORARM PATENT NO REDNESS OR TENDERNESS. COMPLAINS OF PAIN. MEDICATIONS GIVEN. INCISION TO ABDOMEN DRESSING CLEAN AND INTACT. DENIES ANY FURTHER NEED AT THIS TIME. CALL LIGHT IN REACH. BED LOW POSITION. NO FAMILY AT BEDSIDE AT THIS TIME./
[2019-05-25 09:02] VITALS: BP 177/95
--- NOTE | 2019-05-25 12:00 | NUR ---
PT NOTED DRAINAGE ON GOWN. NURSE NOTIFED DRESSING CHANGED AND WOUND ACCESSED. NO ACTIVE DRAINAGE AT THE TIME. NO SIGNS OF DISTRESS. CALL LIGHT IN REACH.
[2019-05-25 12:55] VITALS: BP 112/67
--- NOTE | 2019-05-25 12:58 | MORECARE ---
CASE MANAGEMENT DISCHARGE SUMMARY PATIENT: BETSY PERRY UNIT: [id number] ADM DATE: 05/18/19 AGE: 53 : 61 SEX: F ROOM/BED: D.2226 AUTHOR: ADWOA CASTILLO PHYSICIAN: REFERRING PHYSICIAN: RAFA ROSE MD DATE OF SERVICE: 05/25/19 Discharge Plan Patient Name: BETSY PERRY Facility: [facility]:[place] : 1965 Planned Disposition: Home with Home Health Anticipated Discharge Date: 05/23/19 Discharge Date: Expected LOS: 5 Initial Reviewer: [email or web address] Initial Review Date: 05/23/2019 Generated: 05/25/19 1:57 pm Comments DCP- Discharge Planning Updated by [email or web address]: Юлия Haynes on 05/25/19 11:[address] [place] APPROVAL RECEIVED. [place] DELIVERED TO ROOM BY BLANCA CASTRO. COPY OF RECEIT GIVEN TO PATIENT AND FAXED TO [facility]. CM WILL CONTINUE TO FOLLOW AND ASSIST WITH DISCHARGE PLANNING/NEEDS. DCP- Discharge Planning Updated by [email or web address]: Юлия Haynes on 05/23/19 3:[address] Patient Name: BETSY PERRY Admission Status: Elective Accout number: [id number] Admission Date: 05-18-2019 : 1965 Admission Diagnosis: Attending: RAFA ROSE Current LOS: 5 Anticipated DC Date: 05-23-2019 Planned Disposition: Home with Home Health Primary Insurance: MEDICARE A & B Discharge Planning Comments: CM met with patient to complete initial dc planning assessment. CM educated patient on the CM role and verbal consent given by patient to complete assessment. Patient lives at home alone. At discharge patient plans to return and feels this is a safe discharge. CM discussed availability of home health, rehab services, and medical equipment. Patient's sister is in the room and states that she will need home health because Dr. Rose states she will be going home with a wound vac. I have left a message with Dr. Rose to call me concerning wound measurements for home wound vac. YAJAIRA for [facility] in [place] signed. CM will continue to follow and will assist as needed with dc plans/needs. Fire Management Technician: Юлия Haynes DCPIA - Discharge Planning Initial Assessment Updated by [email or web address]: Юлия Haynes on 05/23/19 4:24 pm * Is the patient Alert and Oriented? Yes * How many steps to enter\exit or inside your home? 1/0 * PCP Dr. Graham * Pharmacy [facility] in [place] * Preadmission Environment Home Alone * ADLs Independent * Equipment Cane Other Shower Chair * Other Equipment Rollator walker * List name and contact numbers for known caregivers / representatives who currently or will assist patient after discharge: Cindy Fox [facility] [phone] * Verbal permission to speak to the caregivers and representatives has been obtained from the patient. Yes * Community resources currently utilized None * Additional services required to return to the preadmission environment? Yes * Can the patient safely return to the preadmission environment? Yes * Has this patient been hospitalized within the prior 30 days at any hospital? No Coverage Notice Reviewer: [id number] - Юлия Haynes Notice Issued Date-Time: 05/23/2019 16:35 Notice Type: Patient Choice Letter Notice Delivered To: Patient Relationship to Patient: Self Supervisor Poultry [employer] Name: Delivery Method: HAND - Hand Delivered Janki Days: Prior Verbal Notification: Recipient Understood Notice: Yes Recipient Signature: Yes Med Rec Note Co-signed by Attending: Coverage Notice Comment: YAJAIRA for [facility] in [place] YAJAIRA for [employer] for wound vac Last DP export: 05/24/19 8:27 Patient Name: BETSY PERRY Page 72440 at 1258 All edits/amendments must be made on the electronic document DICTATION DATE: 05/25/19 1257 CONTINUOUS MINING MACHINE LODE MINER: JOANIE 05/25/19 1257 RPT#: [id number] DC DATE: STATUS: ADM IN [facility] [address] [place] [address] END OF REPORT
--- NOTE | 2019-05-25 13:06 | MORECARE ---
CASE MANAGEMENT DISCHARGE SUMMARY PATIENT: BETSY PERRY UNIT: [id number] ADM DATE: 05/18/19 AGE: 53 : 61 SEX: F ROOM/BED: D.2226 AUTHOR: ADWOA CASTILLO PHYSICIAN: REFERRING PHYSICIAN: RAFA ROSE MD DATE OF SERVICE: 05/25/19 Discharge Plan Patient Name: BETSY PERRY Facility: [facility]:[place] : 1965 Planned Disposition: Home with Home Health Anticipated Discharge Date: 05/23/19 Discharge Date: Expected LOS: 5 Initial Reviewer: [email or web address] Initial Review Date: 05/23/2019 Generated: 05/25/19 2:05 pm Comments DCP- Discharge Planning Updated by [email or web address]: Юлия Haynes on 05/25/19 11:[address] [place] APPROVAL RECEIVED. W[place] DELIVERED TO ROOM BY BLANCA CASTRO. COPY OF RECEIT GIVEN TO PATIENT AND FAXED TO [facility]. CM WILL CONTINUE TO FOLLOW AND ASSIST WITH DISCHARGE PLANNING/NEEDS. DCP- Discharge Planning Updated by [email or web address]: Юлия Haynes on 05/23/19 3:[address] Patient Name: BETSY PERRY Admission Status: Elective Accout number: [id number] Admission Date: 05-18-2019 : 1965 Admission Diagnosis: Attending: RAFA ROSE Current LOS: 5 Anticipated DC Date: 05-23-2019 Planned Disposition: Home with Home Health Primary Insurance: MEDICARE A & B Discharge Planning Comments: CM met with patient to complete initial dc planning assessment. CM educated patient on the CM role and verbal consent given by patient to complete assessment. Patient lives at home alone. At discharge patient plans to return and feels this is a safe discharge. CM discussed availability of home health, rehab services, and medical equipment. Patient's sister is in the room and states that she will need home health because Dr. Rose states she will be going home with a wound vac. I have left a message with Dr. Rose to call me concerning wound measurements for home wound vac. YAJAIRA for [facility] in [place] signed. CM will continue to follow and will assist as needed with dc plans/needs. Clinical Writer: Юлия Haynes DCPIA - Discharge Planning Initial Assessment Updated by [email or web address]: Юлия Haynes on 05/23/19 4:24 pm * Is the patient Alert and Oriented? Yes * How many steps to enter\exit or inside your home? 1/0 * PCP Dr. Graham * Pharmacy [facility] in [place] * Preadmission Environment Home Alone * ADLs Independent * Equipment Cane Other Shower Chair * Other Equipment Rollator walker * List name and contact numbers for known caregivers / representatives who currently or will assist patient after discharge: Cindy Fox [facility] - [phone] * Verbal permission to speak to the caregivers and representatives has been obtained from the patient. Yes * Community resources currently utilized None * Additional services required to return to the preadmission environment? Yes * Can the patient safely return to the preadmission environment? Yes * Has this patient been hospitalized within the prior 30 days at any hospital? No External Providers External Provider: EILEENMilka [facility] [place] Next Contact Date: Service Request Date: Service Type: Resolution: Reviewer: Comments: Coverage Notice Reviewer: [id number] - Юлия Haynes Notice Issued Date-Time: 05/23/2019 16:35 Notice Type: Patient Choice Letter Notice Delivered To: Patient Relationship to Patient: Self Industrial/Organizational Psychologist Name: Delivery Method: HAND - Hand Delivered Janki Days: Prior Verbal Notification: Recipient Understood Notice: Yes Recipient Signature: Yes Med Rec Note Co-signed by Attending: Coverage Notice Comment: YAJAIRA for [facility] in [place] YAJAIRA for [employer] for wound vac Last DP export: 05/25/19 11:58 Patient Name: BETSY PERRY Page 09635 at 1306 All edits/amendments must be made on the electronic document DICTATION DATE: 05/25/19 1305 DATA ANALYSIS MANAGER: JOANIE 05/25/19 1305 RPT#: [id number] DC DATE: STATUS: ADM IN [facility] [address] [place] [address] END OF REPORT
--- NOTE | 2019-05-25 13:56 | MORECARE ---
CASE MANAGEMENT DISCHARGE SUMMARY PATIENT: BETSY PERRY UNIT: [id number] ADM DATE: 05/18/19 AGE: 53 : 61 SEX: F ROOM/BED: D.2226 AUTHOR: ADWOA CASTILLO PHYSICIAN: REFERRING PHYSICIAN: RAFA ROSE MD DATE OF SERVICE: 05/25/19 Discharge Plan Patient Name: BETSY PERRY Facility: [facility]:[place] : 1965 Planned Disposition: Home with Home Health Anticipated Discharge Date: 05/23/19 Discharge Date: Expected LOS: 5 Initial Reviewer: [email or web address] Initial Review Date: 05/23/2019 Generated: 05/25/19 2:56 pm Comments DCP- Discharge Planning Updated by [email or web address]: Юлия Haynes on 05/25/19 12:[address] I called [facility] in [place] and spoke with Suzanne and clinical faxed. CM will continue to follow and assist with discharge planning/needs. DCP- Discharge Planning Updated by [id number]: Юлия Haynes on 05/25/19 11:[address] [place] APPROVAL RECEIVED. W[place] DELIVERED TO ROOM BY BLANCA CASTRO. COPY OF RECEIT GIVEN TO PATIENT AND FAXED TO [facility]. CM WILL CONTINUE TO FOLLOW AND ASSIST WITH DISCHARGE PLANNING/NEEDS. DCP- Discharge Planning Updated by [email or web address]: Юлия Haynes on 05/23/19 3:[address] Patient Name: BETSY PERRY Admission Status: Elective Accout number: [id number] Admission Date: 05-18-2019 : 1965 Admission Diagnosis: Attending: RAFA ROSE Current LOS: 5 Anticipated DC Date: 05-23-2019 Planned Disposition: Home with Home Health Primary Insurance: MEDICARE A & B Discharge Planning Comments: CM met with patient to complete initial dc planning assessment. CM educated patient on the CM role and verbal consent given by patient to complete assessment. Patient lives at home alone. At discharge patient plans to return and feels this is a safe discharge. CM discussed availability of home health, rehab services, and medical equipment. Patient's sister is in the room and states that she will need home health because Dr. Rose states she will be going home with a wound vac. I have left a message with Dr. Rose to call me concerning wound measurements for home wound vac. YAJAIRA for [facility] in [place] signed. CM will continue to follow and will assist as needed with dc plans/needs. Boating Safety Officer: Юлия Haynes DCPIA - Discharge Planning Initial Assessment Updated by [email or web address]: Юлия Haynes on 05/23/19 4:24 pm * Is the patient Alert and Oriented? Yes * How many steps to enter\exit or inside your home? 1/0 * PCP Dr. Graham * Pharmacy [facility] in [place] * Preadmission Environment Home Alone * ADLs Independent * Equipment Cane Other Shower Chair * Other Equipment Rollator walker * List name and contact numbers for known caregivers / representatives who currently or will assist patient after discharge: Cindy Fox - [facility] - [phone] * Verbal permission to speak to the caregivers and representatives has been obtained from the patient. Yes * Community resources currently utilized None * Additional services required to return to the preadmission environment? Yes * Can the patient safely return to the preadmission environment? Yes * Has this patient been hospitalized within the prior 30 days at any hospital? No Coverage Notice Reviewer: [id number] - Юлия Haynes Notice Issued Date-Time: 05/23/2019 16:35 Notice Type: Patient Choice Letter Notice Delivered To: Patient Relationship to Patient: Self Senior Support Analyst Name: Delivery Method: HAND - Hand Delivered Janki Days: Prior Verbal Notification: Recipient Understood Notice: Yes Recipient Signature: Yes Med Rec Note Co-signed by Attending: Coverage Notice Comment: YAJAIRA for [facility] in [place] YAJAIRA for [employer] for wound vac Last DP export: 05/25/19 12:06 Patient Name: BETSY PERRY Page 13268 at 1356 All edits/amendments must be made on the electronic document DICTATION DATE: 05/25/19 1356 BIOLOGICAL AIDE: JOANIE 05/25/19 1356 RPT#: [id number] DC DATE: STATUS: ADM IN [facility] [address] [place] [address] END OF REPORT
--- NOTE | 2019-05-25 14:00 | NUR ---
PT NOTIFED NURSE OF BANDAGE SATURATED WITH PINK TINGED FLUID. DR ROSE NOTIFED AND WAS TOLD TO HAVE Q TIPS AND IODINE AT BEDSIDE.
[2019-05-25 16:38] VITALS: BP 156/94
--- NOTE | 2019-05-25 18:22 | NUR ---
I have reviewed this patient and I concur with the Shift Assessment completed by the Licensed Practical Nurse today this shift.
--- NOTE | 2019-05-25 19:30 | NUR ---
LYING IN BED. ALERT AND ORIENTED X4. RESP EVEN AND NONLABORED. RATES PAIN IN BACK AND ABD 7. NS @ 75 MLHR INFUSING IN RT FOREARM WITH DILAUDID EXTERMINATION INSPECTOR. AMBULATORY. WOUND VAC NOTED TO LLQ. MIDLINE ABD DRSG IS SATURATED IN SEROSANGUINEOUS FLUID. DRS BREVING AWARE OF THIS. DENIES NEEDS. SR ELEVATED X2. CL IN REACH.
[2019-05-25 20:35] VITALS: BP 137/66
--- NOTE | 2019-05-25 20:45 | NUR ---
DR ROSE IN ROOM TO ASSESS PTS MIDLINE ABD WOUND. TIFFANY INTACT. DR ROSE STATES THERE IS A HEMATOMA UNDER THE INCISION AND SEROSANGUINEOUS FLUID POURS OUT WHEN COTTON TIPPED APPLICATOR IS PRESSED THROUGH INCISION LINE BETWEEN TIFFANY. NO FOUL ODOR NOTED. PT STATES INCISION FEELS BETTER SINCE HE GOT SOME FLUID OUT OF IT. NEW DRSG APPLIED. PT SARAH WELL.
--- NOTE | 2019-05-26 00:20 | NUR ---
MIDLINE DRSG LEAKING. DRSG REMOVED. 4X4S APPLIED AND COVERED WITH ABD PAD AND SECURED WITH TAPE. PT SARAH WELL.
[2019-05-26 01:26] VITALS: BP 177/67
[2019-05-26 05:20] VITALS: BP 167/75
[2019-05-26 06:13] LABS: BASOPHILS 0.7 % (0-2); EOSINOPHILS 4.4 % (0-7); HEMATOCRIT 32.2 % (36.0-48.0); IMMATURE GRANULOCYTES 0.5 % (0-5); LYMPHOCYTES 29.5 % (15-50); MCH 27.9 pg (26.0-34.0); MCHC 31.1 g/dL (31.0-37.0); MCV 89.7 fL (80.0-100.0); MEAN PLATELET VOLUME 9.3 fL (7.4-10.4); MONOCYTES 7.5 % (2-11); NEUTROPHILS 57.4 % (40-80); PLATELET COUNT 442 10x3/uL (130-400); RBC 3.59 10x6/uL (4.00-5.40); RDW 14.3 % (11.5-14.5)
--- NOTE | 2019-05-26 06:18 | NUR ---
AWAKE MOST OF NIGHT. LYING IN BED WITH EYES CLOSED. RESP EVEN AND NONLABORED. NO DISTRESS. CL IN REACH.
[2019-05-26 06:24] LABS: CALCIUM 8.1 mg/dL (8.5-10.1); CARBON DIOXIDE 26.8 mmol/L (21.0-32.0); CREATININE - SERUM 0.9 mg/dL (0.6-1.3); POTASSIUM - SERUM 3.8 mmol/L (3.5-5.1)
[2019-05-26 06:48] LABS: WBC 10.7 10x3/uL (4.8-10.8)
--- NOTE | 2019-05-26 07:24 | NUR ---
A/A/OX4. PT IS POST OP DAY 8. MIDLINE DRESSING C/D/I AND DENIES PAIN AT PRESENT TIME. NO REQUESTS VOICED. WOUND VAC IN PLACE TO DRESSING WITH SMALL AMT BLOODY DRAINAGE NOTED IN CANISTER. IV PATENT TO RIGHT FA WITHOUT REDNESS OR EDEMA. INFORMATION SERVICES CONSULTANT DILAUDID SET TO DELIVER 0.2 MG/10/0. ASSESSMENT COMPLETED AND WILL CONTINUE POC.
--- NOTE | 2019-05-26 09:25 | NUR ---
DILAUDID MOTOR POWER CONNECTOR DISCONTINUED
[2019-05-26 10:53] VITALS: BP 121/65
[2019-05-26 12:45] VITALS: BP 151/96
--- NOTE | 2019-05-26 14:08 | NUR ---
Nutrition follow-up: Diet advanced to regular; po intake 75-100% of meals Labs reviewed +BM no new wt to assess RDN following.
--- NOTE | 2019-05-26 16:42 | NUR ---
Wound vac dressing change: 05/26/19 Left abdomen surgical wound 2.5cm x 5cm x 4cm (improved) Wound bed red/beefy Drainage moderate serosanguinous No odor No tendon, muscle or bone exposed -125mmhg low continuous Pt tolerated well. D/c'd NORMA (hospital vac) and connected to her home vac
[2019-05-26 17:32] VITALS: BP 152/97
--- NOTE | 2019-05-26 19:45 | NUR ---
DISCHARGE INSTRUCTIONS GIVEN TO PT AND FAMILY MEMBER...VERBAL AND WRITTEN COPIES. REMOVED IV TO RIGHT FA WITH CATHETER TIP INTACT AND PLACED PRESSURE DRESSING OVER SITE. WOUND VAC IN PLACE AND PT'S OWN UNIT CONNECTED EARLIER BY WOUND CARE NURSE. PT ESCORTED TO FRONT EXIT VIA WHEELCHAIR AND ASSISTED INTO VEHICLE BY EXECUTIVE CONSULTANT. TOLD TO CALL HERE OR RETURN TO ER FOR ANY PROBLEMS.
--- NOTE | 2019-05-27 08:29 | MORECARE ---
CASE MANAGEMENT DISCHARGE SUMMARY PATIENT: BETSY PERRY UNIT: [id number] ADM DATE: 05/18/19 AGE: 53 : 61 SEX: F ROOM/BED: D.2226 AUTHOR: ADWOA CASTILLO PHYSICIAN: REFERRING PHYSICIAN: RAFA ROSE MD DATE OF SERVICE: 05/27/19 Discharge Plan Patient Name: BETSY PERRY Facility: [facility]:[place] : 1965 Planned Disposition: Home with Home Health Anticipated Discharge Date: 05/23/19 Discharge Date: 05/26/2019 Expected LOS: 5 Initial Reviewer: [email or web address] Initial Review Date: 05/23/2019 Generated: 05/27/19 9:29 am Comments DCP- Discharge Planning Updated by [email or web address]: Юлия Haynes on 05/27/19 7:[address] Discharged last evening. I called [facility] in [place] and informed and DC order/meds sent. They state will see today. DCP- Discharge Planning Updated by [email or web address]: Юлия Haynes on 05/25/19 12:[address] I called [facility] in [place] and spoke with Suzanne and clinical faxed. CM will continue to follow and assist with discharge planning/needs. DCP- Discharge Planning Updated by [email or web address]: Юлия Haynes on 05/25/19 11:[address] [place] APPROVAL RECEIVED. WV DELIVERED TO ROOM BY BLANCA CASTRO. COPY OF RECEIT GIVEN TO PATIENT AND FAXED TO [facility]. CM WILL CONTINUE TO FOLLOW AND ASSIST WITH DISCHARGE PLANNING/NEEDS. DCP- Discharge Planning Updated by [email or web address]: Юлия Haynes on 05/23/19 3:[address] Patient Name: BETSY PERRY Admission Status: Elective Accout number: [id number] Admission Date: 05-18-2019 : 1965 Admission Diagnosis: Attending: RAFA ROSE Current LOS: 5 Anticipated DC Date: 05-23-2019 Planned Disposition: Home with Home Health Primary Insurance: MEDICARE A & B Discharge Planning Comments: CM met with patient to complete initial dc planning assessment. CM educated patient on the CM role and verbal consent given by patient to complete assessment. Patient lives at home alone. At discharge patient plans to return and feels this is a safe discharge. CM discussed availability of home health, rehab services, and medical equipment. Patient's sister is in the room and states that she will need home health because Dr. Rose states she will be going home with a wound vac. I have left a message with Dr. Rose to call me concerning wound measurements for home wound vac. YAJAIRA for [facility] in [place] signed. CM will continue to follow and will assist as needed with dc plans/needs. Crane Crew Supervisor: Юлия Haynes DCPIA - Discharge Planning Initial Assessment Updated by [email or web address]: Юлия Haynes on 05/23/19 4:24 pm * Is the patient Alert and Oriented? Yes * How many steps to enter\exit or inside your home? 1/0 * PCP Dr. Graham * Pharmacy [facility] in [place] * Preadmission Environment Home Alone * ADLs Independent * Equipment Cane Other Shower Chair * Other Equipment Rollator walker * List name and contact numbers for known caregivers / representatives who currently or will assist patient after discharge: Cindy Fox - sister - [phone] * Verbal permission to speak to the caregivers and representatives has been obtained from the patient. Yes * Community resources currently utilized None * Additional services required to return to the preadmission environment? Yes * Can the patient safely return to the preadmission environment? Yes * Has this patient been hospitalized within the prior 30 days at any hospital? No Coverage Notice Reviewer: [id number] - Юлия Haynes Notice Issued Date-Time: 05/23/2019 16:35 Notice Type: Patient Choice Letter Notice Delivered To: Patient Relationship to Patient: Self Journalism Teacher Name: Delivery Method: HAND - Hand Delivered Janki Days: Prior Verbal Notification: Recipient Understood Notice: Yes Recipient Signature: Yes Med Rec Note Co-signed by Attending: Coverage Notice Comment: YAJAIRA for [facility] in [place] YAJAIRA for [employer] for wound vac Last DP export: 05/25/19 12:56 Patient Name: BETSY PERRY Page 68547 at 0829 All edits/amendments must be made on the electronic document DICTATION DATE: 05/27/19828 TUNNELLER: JOANIE 05/27/19828 RPT#: [id number] DC DATE:05/26/19 STATUS: DIS IN [address] [place] [address] END OF REPORT
--- NOTE | 2019-05-27 14:23 | MORECARE ---
CASE MANAGEMENT DISCHARGE SUMMARY PATIENT: BETSY PERRY UNIT: [id number] ADM DATE: 05/18/19 AGE: 53 : 61 SEX: F ROOM/BED: D.2226 AUTHOR: ADWOA CASTILLO PHYSICIAN: REFERRING PHYSICIAN: RAFA ROSE MD DATE OF SERVICE: 05/27/19 Discharge Plan Patient Name: BETSY PERRY Facility: [facility]:[place] : 1965 Planned Disposition: Home with Home Health Anticipated Discharge Date: 05/23/19 Discharge Date: 05/26/2019 Expected LOS: 5 Initial Reviewer: [email or web address] Initial Review Date: 05/23/2019 Generated: 05/27/19 3:23 pm Comments DCP- Discharge Planning Updated by [email or web address]: Юлия Haynes on 05/27/19 7:[address] Discharged last evening. I called [facility] in [place] and informed and DC order/meds sent. They state will see today. DCP- Discharge Planning Updated by [email or web address]: Юлия Haynes on 05/25/19 12:[address] I called [facility] in [place] and spoke with Suzanne and clinical faxed. CM will continue to follow and assist with discharge planning/needs. DCP- Discharge Planning Updated by [email or web address]: Юлия Haynes on 05/25/19 11:[address] [place] APPROVAL RECEIVED. WV DELIVERED TO ROOM BY BLANCA CASTRO. COPY OF RECEIT GIVEN TO PATIENT AND FAXED TO [facility]. CM WILL CONTINUE TO FOLLOW AND ASSIST WITH DISCHARGE PLANNING/NEEDS. DCP- Discharge Planning Updated by [email or web address]: Юлия Haynes on 05/23/19 3:[address] Patient Name: BETSY PERRY Admission Status: Elective Accout number: [id number] Admission Date: 05-18-2019 : 1965 Admission Diagnosis: Attending: RAFA ROSE Current LOS: 5 Anticipated DC Date: 05-23-2019 Planned Disposition: Home with Home Health Primary Insurance: MEDICARE A & B Discharge Planning Comments: CM met with patient to complete initial dc planning assessment. CM educated patient on the CM role and verbal consent given by patient to complete assessment. Patient lives at home alone. At discharge patient plans to return and feels this is a safe discharge. CM discussed availability of home health, rehab services, and medical equipment. Patient's sister is in the room and states that she will need home health because Dr. Rose states she will be going home with a wound vac. I have left a message with Dr. Rose to call me concerning wound measurements for home wound vac. YAJAIRA for [facility] in [place] signed. CM will continue to follow and will assist as needed with dc plans/needs. Slitter And Rewinder: Юлия Haynes DCPIA - Discharge Planning Initial Assessment Updated by [email or web address]: Юлия Haynes on 05/23/19 4:24 pm * Is the patient Alert and Oriented? Yes * How many steps to enter\exit or inside your home? 1/0 * PCP Dr. Graham * Pharmacy [facility] in [place] * Preadmission Environment Home Alone * ADLs Independent * Equipment Cane Other Shower Chair * Other Equipment Rollator walker * List name and contact numbers for known caregivers / representatives who currently or will assist patient after discharge: Cindy Fox - sister - [phone] * Verbal permission to speak to the caregivers and representatives has been obtained from the patient. Yes * Community resources currently utilized None * Additional services required to return to the preadmission environment? Yes * Can the patient safely return to the preadmission environment? Yes * Has this patient been hospitalized within the prior 30 days at any hospital? No Coverage Notice Reviewer: [id number] - Юлия Haynes Notice Issued Date-Time: 05/23/2019 16:35 Notice Type: Patient Choice Letter Notice Delivered To: Patient Relationship to Patient: Self Field Supervisor Seed Production Name: Delivery Method: HAND - Hand Delivered Janki Days: Prior Verbal Notification: Recipient Understood Notice: Yes Recipient Signature: Yes Med Rec Note Co-signed by Attending: Coverage Notice Comment: YAJAIRA for [facility] in [place] YAJAIRA for [employer] for wound vac Last DP export: 05/27/19 7:29 Patient Name: BETSY PERRY Page 25642 at 1423 All edits/amendments must be made on the electronic document DICTATION DATE: 05/27/19 1423 LEGAL STENOGRAPHER: JOANIE 05/27/19 1423 RPT#: [id number] DC DATE:05/26/19 STATUS: DIS IN [facility] [address] [place] [address] END OF REPORT
--- NOTE | 2019-05-27 14:28 | DS ---
PATIENT:BETSY PERRY :61 MEDICAL RECORD: [id number] DISCHARGE SUMMARY ADMISSION DATE: 05/18/19 DISCHARGE DATE: 05/26/19 PRINCIPAL DIAGNOSIS: History of diverticulitis with perforation. PROCEDURE: Hand-assisted laparoscopic surgery, colostomy takedown. HOSPITAL COURSE: The patient underwent the above operative procedure. She had a prolonged ileus. Bowel function returned. Her diet was advanced. She is being dismissed home. At the time of dismissal, she was tolerating a regular diet. She was having bowel movements. She has significant analgesia at home. I will see her in the office in 2-3 weeks. She is going to be dismissed home with a wound VAC in place at the former colostomy site. TRANSINT:[id number] Voice Confirmation ID: [id number] DOCUMENT ID: [id number] RAFA ROSE MD at 1428 CC: BORIS FERNANDO [id number] DICTATION DATE: 05/26/191849 GUN STRIPER: 05/27/19 0854 DIS IN 05/26/[address] [facility] [address] [place] [address]
--- NOTE | 2019-06-03 08:49 | OP ---
PATIENT NAME: BETSY PERRY MEDICAL RECORD: [id number] :61 LOCATION:[facility] ADMISSION DATE:05/18/19 SURGEON: RAFA ROSE MD DATE OF OPERATION: 05/18/2019 PREOPERATIVE DIAGNOSIS: History of a Sherif procedure due to perforated sigmoid diverticulitis with desire to reverse the colostomy. POSTOPERATIVE DIAGNOSIS: History of a Sherif procedure due to perforated sigmoid diverticulitis with desire to reverse the colostomy. PROCEDURE: Hand-assisted laparoscopic surgery - colostomy takedown. SURGEON: Rafa Rose MD INJECTION MOLDING MACHINE OFFBEARER: None. BLOOD LOSS: Please see the anesthesia sheet. COMPLICATIONS: None. The risks, possible complications, and alternatives to the procedure were explained to the patient. She elects to proceed. The discussion specifically included, but was not limited to, bleeding requiring emergency reoperation, infection, anastomotic leakage, and the possible need for additional colostomy or ileostomy. OPERATIVE COURSE: The patient was conveyed to the operating room electively on 05/18/2019. General anesthesia was induced by anesthesia staff. The patient was placed in adjustable stirrups in the lithotomy position. The perineum was sterilely prepped and draped as was the abdomen. A lower midline incision was accomplished. I dissected down through the skin and subcutaneous tissues and entered the peritoneal cavity sharply. A Gelport device was then placed. Through the Gelport device, I placed a 12-mm trocar. CO2 insufflation was begun. Once a sufficient pneumoperitoneum had been achieved, a 5-mm trocar was inserted through an incision in the periumbilical area. An abdominal survey was undertaken. There were adhesions up around the stoma as well as a parastomal hernia. Utilizing my hand in the Gelport device and the laparoscopic camera, I began to bluntly dissect along the left colon. Previously I had taking down the splenic flexure of the colon and this aided in mobility of the descending colon. There were some filmy grade 1 type adhesions around the colostomy. These extended up into the parastomal hernia. I was able to reduce some of the parastomal hernia contents with my hand. I then removed the top off the Gelport device. I desufflated the abdomen. I went around and made a circular defect around the colostomy. In order to keep the operative field as sterile as possible, I pulled up on the colostomy and stapled across the colostomy and disposed of the distal portion. Therefore, I had a closed portion of colon now. I dissected down along the colon into a large hernia sac. Dissection was both sharp and blunt dissection. I was able to free up the colon through this subcutaneous and muscular defect and was able to reduce the colon back into the peritoneal cavity. The muscle and fascia at the base of the wound was closed with multiple OPERATIVE REPORT [id number] BETSY PERRY interrupted horizontal mattress #1 Vicryls. I irrigated the wound with hydrogen peroxide. I then went around to the Jose retractor. I grasped the stapled off portion of the colon. I opened up the staple line. I advanced a 29-mm anvil and brought it out through the antimesenteric border of the colon. I then stapled the colon shut. We then elevated the patient's lower extremities in the adjustable stirrups. I dilated with EEA sizers up to 33. I then advanced a 29-mm EEA device and deployed the arrow. This was attached to the anvil without any twisting or kinking of the colon. I then tightened down on the EEA device and fired. We then untightened it and removed the EEA device. There were 2 complete donuts of tissue within the EEA device. We then clamped the colon proximally. I then placed a proctoscope up into the rectum and inflated while we had instilled saline in the pelvis. There was no bubbling of air from the anastomosis and therefore there was an airtight anastomosis. I irrigated and aspirated. There was no bleeding. Portions of the omentum had to be excised with the open Super Jaw EnSeal device. This was to allow for the anastomosis to be tension free. The midline fascia was closed with a running looped #1 PDS. The subdermis was approximated with interrupted 3-0 Vicryls. The aiynaa were used for the cutaneous closure at the trocar site as well as at the lower midline incision. I then placed a black wound VAC sponge into the defect where the colostomy had been. This was covered with the cellophane-type dressing, which was then scored and a wound VAC disc was applied. This was attached to suction, which held a good seal. The patient was then extubated and conveyed to post-anesthesia care unit. TRANSINT:[id number] Voice Confirmation ID: [id number] DOCUMENT ID: [id number] RAFA ROSE MD at 0849 CC: [id number] DICTATION DATE: 05/27/191954 LABORATORY OPERATIONS COORDINATOR: 05/28/19 0329 DIS IN 05/26/19 [facility] [address] [id number]
== END 2019-05-26 19:45 | disposition home health service (06) | DRG 330 ==
LOC: D.MS 05-18 08:14 → D.SDCHOLD 05-18 08:14 → D.MS 05-18 18:51
PROVIDERS: Anesthesiology; Emergency Medicine; Legal Medicine; ADMIT Surgery; ATTEND Surgery
PROC: 0DBE0ZZ Excision of Large Intestine, Open Approach (ICD-10-PCS; principal; 2019-05-18 10:30)
DX: Z43.3 Encounter for attention to colostomy (principal); F11.20 Opioid dependence, uncomplicated; M79.7 Fibromyalgia; E03.9 Hypothyroidism, unspecified; I10 Essential (primary) hypertension; E78.5 Hyperlipidemia, unspecified; H10.9 Unspecified conjunctivitis; S05.02XA Injury of conjunctiva and corneal abrasion without foreign body, left eye, initial encounter

== ENCOUNTER → 2020-01-05 09:38 | Outpatient (CLI) | payer MEDICARE ==
[2019-05-19 12:29] VITALS: BMI 45.4
[2020-01-05 10:09] LABS: BASOPHILS 0.6 % (0-2); EOSINOPHILS 5.8 % (0-7); HEMATOCRIT 39.4 % (36.0-48.0); HEMOGLOBIN 12.5 g/dL (12-16); IMMATURE GRANULOCYTES 0.4 % (0-5); LYMPHOCYTES 21.4 % (15-50); MCH 27.6 pg (26.0-34.0); MCHC 31.7 g/dL (31.0-37.0); MEAN PLATELET VOLUME 9.4 fL (7.4-10.4); NEUTROPHILS 64.8 % (40-80); PLATELET COUNT 335 10x3/uL (130-400); RBC 4.53 10x6/uL (4.00-5.40); RDW 16.7 % (11.5-14.5); WBC 12.5 10x3/uL (4.8-10.8)
[2020-01-05 10:55] LABS: ALBUMIN 3.1 g/dL (3.4-5.0); ANION GAP 12.4 mmol/L (8-16); BILIRUBIN - TOTAL 0.54 mg/dL (0.2-1.3); CALCIUM 8.7 mg/dL (8.5-10.1); CARBON DIOXIDE 25.9 mmol/L (21.0-32.0); CHOL - HDL RATIO 6.6 ratio (2.3-4.1); LDL-HDL RATIO 3.9 ratio (1.5-3.5); POTASSIUM - SERUM 4.3 mmol/L (3.5-5.1); PROTEIN - SERUM 7.1 g/dL (6.4-8.2); THYROID STIMULATING HORMONE 0.68 uIU/mL (0.36-3.74)
== END | disposition home or self-care (01) ==
LOC: D.LAB 09:38
PROVIDERS: ATTEND Family Medicine
DX: Z00.00 Encounter for general adult medical examination without abnormal findings (principal); E78.5 Hyperlipidemia, unspecified; E11.9 Type 2 diabetes mellitus without complications; E03.9 Hypothyroidism, unspecified; M19.90 Unspecified osteoarthritis, unspecified site; R53.83 Other fatigue

== ENCOUNTER 2020-08-27 07:44 | Inpatient (IN) | payer MEDICARE ==
[~2020-08-27] VITALS: Ht 165.1 cm; Wt 121.3 kg
[2020-08-27 08:19] LABS: BASOPHILS 0.5 % (0-2); EOSINOPHILS 2.8 % (0-7); HEMATOCRIT 43.1 % (36.0-48.0); HEMOGLOBIN 13.6 g/dL (12-16); IMMATURE GRANULOCYTES 0.5 % (0-5); LYMPHOCYTE ABS# 3.53 10x3/uL (1.18-3.74); LYMPHOCYTES 23.7 % (15-50); MCH 27.4 pg (26.0-34.0); MCHC 31.6 g/dL (31.0-37.0); MCV 86.7 fL (80.0-100.0); MEAN PLATELET VOLUME 9.6 fL (7.4-10.4); MONOCYTES 6.8 % (2-11); NEUTROPHIL ABS# 9.76 10x3/uL (1.56-6.13); NEUTROPHILS 65.7 % (40-80); PLATELET COUNT 348 10x3/uL (130-400); RBC 4.97 10x6/uL (4.00-5.40); RDW 14.9 % (11.5-14.5); WBC 14.9 10x3/uL (4.8-10.8)
[2020-08-27 08:35] LABS: ANION GAP 11.9 mmol/L (8-16); CALCIUM 9.2 mg/dL (8.5-10.1); CARBON DIOXIDE 27.3 mmol/L (21.0-32.0); POTASSIUM - SERUM 4.2 mmol/L (3.5-5.1)
[2020-08-27 09:20] VITALS: BP 105/54; BMI 43.3
--- NOTE | 2020-08-27 17:45 | NUR ---
TRANSFERRED TO ROOM 2227 IN STABLE CONDITION.
[2020-08-27 18:46] VITALS: BP 96/56; BMI 43.3
[2020-08-27 20:00] VITALS: BP 128/74
[2020-08-28] VITALS: BP 128/62
[2020-08-28 04:00] VITALS: BP 98/52
--- NOTE | 2020-08-28 06:32 | NUR ---
I have reviewed this patient and I concur with the Shift Assessment completed by the Licensed Practical Nurse today this shift.
[2020-08-28 08:30] VITALS: BP 99/57
--- NOTE | 2020-08-28 11:30 | NUR ---
ASSESSMENT PER FLOW SHEET. PATIENT IS WITHOUT DISTRESS.MONITOR FOR NEEDS.
--- NOTE | 2020-08-28 12:33 | NUR ---
UP TO CHAIR FOR LUNCH.
[2020-08-28 13:16] VITALS: BP 112/49
--- NOTE | 2020-08-28 15:00 | NUR ---
[facility] DC'D ORDERED,CATH TIP INTACT . 750 CC EPTIED FROM [facility] BAG.
--- NOTE | 2020-08-28 15:51 | NUR ---
HAS VOIDED APROX 500CC OF URINE.
[2020-08-28 16:43] VITALS: BP 122/61
[2020-08-28 20:00] VITALS: BP 111/54
[2020-08-29 04:00] VITALS: BP 132/65
--- NOTE | 2020-08-29 07:25 | NUR ---
I have reviewed this patient and I concur with the Shift Assessment completed by the Licensed Practical Nurse today this shift.
[2020-08-29 07:52] LABS: BASOPHILS 0.3 % (0-2); EOSINOPHILS 1.7 % (0-7); HEMATOCRIT 38.7 % (36.0-48.0); HEMOGLOBIN 11.9 g/dL (12-16); IMMATURE GRANULOCYTES 0.3 % (0-5); LYMPHOCYTE ABS# 2.28 10x3/uL (1.18-3.74); LYMPHOCYTES 14.7 % (15-50); MCH 27.4 pg (26.0-34.0); MCHC 30.7 g/dL (31.0-37.0); MEAN PLATELET VOLUME 9.7 fL (7.4-10.4); MONOCYTES 7.1 % (2-11); NEUTROPHIL ABS# 11.72 10x3/uL (1.56-6.13); NEUTROPHILS 75.9 % (40-80); PLATELET COUNT 295 10x3/uL (130-400); RBC 4.34 10x6/uL (4.00-5.40); RDW 15.1 % (11.5-14.5); WBC 15.5 10x3/uL (4.8-10.8)
[2020-08-29 07:55] LABS: MCV 89.2 fL (80.0-100.0)
[2020-08-29 08:23] LABS: ALBUMIN 2.4 g/dL (3.4-5.0); ALKALINE PHOSPHATASE 91 U/L (30-120); ALT (SGPT) 12 U/L (10-68); BILIRUBIN - TOTAL 0.42 mg/dL (0.2-1.3); CALCIUM 8.5 mg/dL (8.5-10.1); CARBON DIOXIDE 27.8 mmol/L (21.0-32.0); CHLORIDE - SERUM 105 mmol/L (98-107); CREATININE - SERUM 0.8 mg/dL (0.6-1.3); GLUCOSE 109 mg/dL (74-106); PROTEIN - SERUM 6.1 g/dL (6.4-8.2); SODIUM 141 mmol/L (136-145); eGFR NON AFRICAN AMERICAN 78 mL/min (90-120)
[2020-08-29 08:28] LABS: CALC OSMOLALITY 280 mosm/kg (275-300); POTASSIUM - SERUM 3.3 mmol/L (3.5-5.1); UREA NITROGEN 10 mg/dL (7-18)
[2020-08-29 08:55] VITALS: BP 148/76
[2020-08-29 12:47] VITALS: BP 110/64
[2020-08-29 17:07] VITALS: BP 146/85
[2020-08-29 20:00] VITALS: BP 201/90
--- NOTE | 2020-08-30 | NUR ---
LOWER PORTION OF MIDLINE DRESSING SATURATED WITH BLOOD IN ABD FOLDS. DRESSING CHANGED, CPOC.
[2020-08-30 04:00] VITALS: BP 201/72
--- NOTE | 2020-08-30 05:49 | NUR ---
I have reviewed this patient and I concur with the Shift Assessment completed by the Licensed Practical Nurse today this shift.
--- NOTE | 2020-08-30 08:40 | NUR ---
PT SITTING UP ON SIDE OF BED, STATES SHE IS NAUSEOUS AND HAS THROWN UP TWO BLUE BAGS OF EMISIS, PT STATES IT IS THE MEDICINES THAT ARE MAKING HER THROW UP BOTH IV AND PO, REFUSING MEDS AT THIS TIME
[2020-08-30 09:00] VITALS: BP 181/88
--- NOTE | 2020-08-30 10:29 | NUR ---
REFUSES AM MEDS. PATIENT STATES SEVERE NAUSEA. MEDS FOR NAUSEA ORDERED PER AUG.
[2020-08-30 12:17] VITALS: BP 100/91
[2020-08-30 12:55] VITALS: Ht 165.1 cm; Wt 121.3 kg
--- NOTE | 2020-08-30 13:25 | NUR ---
PT SITTING UP ON SIDE OF BED HOLDING BLUE VOMIT BAG, NEW BAG OF NS SPIKED, PT CPMCERNED THAT MORPHINE WAS ALMOST EMPTY
--- NOTE | 2020-08-30 14:13 | NUR ---
PT INFORMED AID STILL HAVING NAUSEA AND VOMITTING, NO EMISIS HAS BEEN PRESENT FOR THIS RN TO COLLECT OR MEASURE, PT STATES THE MEDICATIONS SHE HAS BEEN GETTING ARE NOT HELPING, PT REQUESTING SOMETHING FOR NAUSEA AND VOMITTING
[2020-08-30 16:09] VITALS: BP 162/95
[2020-08-30 20:00] VITALS: BP 155/97
[2020-08-31] VITALS: BP 204/118
--- NOTE | 2020-08-31 | NUR ---
PT C/O RIGHT SIDE FACE AND TEETH PAIN. STATES PAIN IS DUE TO NG TUBE AND DEMANDS THAT IT BE TAKEN OUT NOW. PT STATES THAT SHE HAS HISTORY OF ERICKSON'S PALSY AND THAT SHE MUST BE EXTRA SENSITIVE TO THE NG TUBE AND SHE WANTS IT OUT. PROVIDED EDUCATION AND REASONING FOR NG TUBE. PT VERBALIZED UNDERSTANDING AND STILL DEMANDS IT COME OUT. REMOVED NG TUBE. NO OTHER NEEDS. WILL CONTINUE TO MONITOR.
--- NOTE | 2020-08-31 01:30 | NUR ---
PT'S BP 204/118 - PT MISSED DOSE OF LISINOPRIL DUE TO N/V LAST AM. GAVE THIS MORNING'S LISINOPRIL EARLY WITH SIP OF WATER AND ATIVAN 1 MG IV PUSH FOR ANXIETY. PT TOLERATING SO FAR. WILL REASSESS AND CONTINUE TO MONITOR.
[2020-08-31 04:00] VITALS: BP 158/88
[2020-08-31 08:57] VITALS: BP 182/97
--- NOTE | 2020-08-31 10:00 | NUR ---
ALERT AND ORIENTED WITHPCA MORPHINE AT PRESCRIBED SETTINGS WITH IVF INFUSIG VIA LEFT F/A W/O ANY S/S OF INFECTION/INFILTRATION. ABDOMINAL BINDER INTACT WELL DRESSINGS. BOWEL SOUNDS HYPOACTIVE X4 AND DENIES ANY FLATULANCE.UP AMBULATING IN [place] WITH SISTER WITH WALKER. POOR EFFORT NOTED WITH INCENTIVE SPIROMETRY WITH INSTRUCTIONS GIVEN
[2020-08-31 12:21] VITALS: BP 188/94
[2020-08-31 16:48] VITALS: BP 196/107
--- NOTE | 2020-08-31 17:52 | NUR ---
DR. ROSE NOTIFIED OF ABDOMINAL XRAY RESULTS WITH PHYSICAL EXAM DONE WITH PATIENT IN ROOM. ENCOURAGED AMBULATION AND INCETIVE SPIROMOETRY. INSTRUCTED USE OF CALL LIGHT FOR ASSSIT.
[2020-08-31 20:07] VITALS: BP 188/102
--- NOTE | 2020-09-01 02:00 | NUR ---
PT STATES SHE HAS BEEN VOMITING. REFUSES ZOFRAN. DID NOT VISUALIZE EMESIS. PT STATES SHE HAS PASSED SOME GAS. BP 198/97 - GAVE APRESOLINE 10 MG IV PUSH. NO OTHER NEEDS. WILL REASSESS AND CONTINUE TO MONITOR.
[2020-09-01 06:39] VITALS: BP 148/85
[2020-09-01 08:38] VITALS: BP 167/94
[2020-09-01 12:43] VITALS: BP 169/81
[2020-09-01 16:59] VITALS: BP 160/77
[2020-09-01 20:38] VITALS: BP 145/79
--- NOTE | 2020-09-01 20:45 | NUR ---
UP AD HELLEN IN ROOM STATES STILL HAVING NAUSEA AT TIMES. IV TO LFA INTACT WITHOUT REDNESS OR EDEMA NOTED.CONTINUES TO REFUSE NG TUBE. CL IN REACH
--- NOTE | 2020-09-02 05:11 | NUR ---
I have reviewed this patient and I concur with the Shift Assessment completed by the Licensed Practical Nurse today this shift.
[2020-09-02 05:26] VITALS: BP 178/86
--- NOTE | 2020-09-02 07:55 | NUR ---
RESTING IN BED, NO DISTRESS NOTED, TALKING ON PHONE, NPO, CONT TO MONITOR
[2020-09-02 08:28] VITALS: BP 132/65
[2020-09-02 12:01] VITALS: BP 130/92
--- NOTE | 2020-09-02 13:32 | NUR ---
pt states that she had a bm today and is wanting something to eat, reached dr millard voice mail, cont to monitor
[2020-09-02 16:12] VITALS: BP 141/83
[2020-09-02 23:34] VITALS: BP 99/63
[2020-09-03 06:19] VITALS: BP 144/77
[2020-09-03 09:36] VITALS: BP 182/94
[2020-09-03 11:24] LABS: HEMATOCRIT 40.5 % (36.0-48.0); HEMOGLOBIN 12.6 g/dL (12-16); LYMPHOCYTE ABS# 2.43 10x3/uL (1.18-3.74); MCH 27.3 pg (26.0-34.0); MCHC 31.1 g/dL (31.0-37.0); MCV 87.7 fL (80.0-100.0); MEAN PLATELET VOLUME 9.1 fL (7.4-10.4); NEUTROPHIL ABS# 14.27 10x3/uL (1.56-6.13); RBC 4.62 10x6/uL (4.00-5.40); RDW 14.5 % (11.5-14.5); WBC 18.6 10x3/uL (4.8-10.8)
[2020-09-03 11:33] LABS: PLATELET COUNT 393 10x3/uL (130-400)
[2020-09-03 11:41] LABS: ALBUMIN 2.5 g/dL (3.4-5.0); ALKALINE PHOSPHATASE 86 U/L (30-120); ALT (SGPT) 23 U/L (10-68); BILIRUBIN - TOTAL 0.38 mg/dL (0.2-1.3); CALC OSMOLALITY 276 mosm/kg (275-300); CALCIUM 8.6 mg/dL (8.5-10.1); CARBON DIOXIDE 26.1 mmol/L (21.0-32.0); CHLORIDE - SERUM 104 mmol/L (98-107); CREATININE - SERUM 0.8 mg/dL (0.6-1.3); GLUCOSE 111 mg/dL (74-106); POTASSIUM - SERUM 3.5 mmol/L (3.5-5.1); PROTEIN - SERUM 6.2 g/dL (6.4-8.2); SODIUM 138 mmol/L (136-145); UREA NITROGEN 13 mg/dL (7-18); eGFR NON AFRICAN AMERICAN 78 mL/min (90-120)
[2020-09-03 12:32] VITALS: BP 166/80
--- NOTE | 2020-09-03 13:18 | NUR ---
Nutrition follow-up: Diet advanced to regular soft as tolerated PO intake this morning at breakfast only ~20%; pt reports some nausea POD 4 from hernia repair with mesh Labs reviewed Wt: 267# +BM Will continue to provide food choices and honor food preferences within diet restrictions. Will offer nutritional supplements. RDN follow-up: 09/06/20
[2020-09-03 14:06] LABS: EOSINOPHILS 3 % (0-7); LYMPHOCYTES 13 % (15-50); MONOCYTES 8 % (2-11); NEUTROPHILS 75 % (40-80); PLATELET ESTIMATE NORMAL; ROULEAUX OCC
--- NOTE | 2020-09-03 14:30 | HP ---
PATIENT: BETSY PERRY MEDICAL RECORD: [id number] ACCOUNT: [id number] LOCATION:D.[facility] : 61 ADMISSION DATE: 08/27/20 PCP: BORIS FERNANDO MD HISTORY AND PHYSICAL EXAMINATION CHIEF COMPLAINT: Hernia. HISTORY OF PRESENT ILLNESS: The patient has a lower midline hernia. It is tender. It has been enlarging. Also, she may have a hernia and a former colostomy site in the left lower quadrant. I was going to plan for a laparoscopic repair, but instead I think I am going to perform an open repair with mesh. The risks, possible complications, and alternatives of the procedure were explained to the patient. She elects to proceed. HOME MEDICATIONS: Please see the nursing list. ALLERGIES: Please see the nursing list. SOCIAL HISTORY: She is a smoker. PAST MEDICAL AND SURGICAL HISTORY: COPD. History of exploratory laparotomy, history of bowel resection, history of colostomy and colostomy takedown. PHYSICAL EXAMINATION: GENERAL: The patient does not appear acutely ill. She does not appear chronically ill. VITAL SIGNS: Reviewed. EARS: External ears appear normal. EYES: Extraocular movements are intact. NECK: Trachea is midline. CHEST: No intercostal retractions. PULMONARY: Nonlabored. No stridor. ABDOMEN: As described above. There is no peritonitis to percussion. IMPRESSION: Incisional hernias, symptomatic, enlarging. PLAN: Will be open repairs with mesh. TRANSINT:[id number] Voice Confirmation ID: [id number] DOCUMENT ID: [id number] RAFA ROSE MD at 1430 CC: BORIS FERNANDO [id number] DICTATION DATE: 08/27/[address] OILING TRUCK DRIVER: 08/27/[address] [facility] [address] [place] [address]
[2020-09-03 16:56] VITALS: BP 161/83
[2020-09-04 04:00] VITALS: BP 137/63
--- NOTE | 2020-09-04 07:30 | NUR ---
PATIENT HAD PAIN CONTROLLED WITH THE PRESCRIBED PAIN MEDICATIONS, SHE APPEARED TO SLEEP WELL THROUGH THE NIGHT.
[2020-09-04 09:55] VITALS: BP 148/72
[2020-09-04 12:06] VITALS: BP 152/82
[2020-09-04] MEDS ORDERED: REGLAN10 MG PO (14:37)
[2020-09-04] MEDS ORDERED: SCOPOLAMINE1 EACH TRANSDERM (14:37)
--- NOTE | 2020-09-04 16:48 | MORECARE ---
CASE MANAGEMENT DISCHARGE SUMMARY PATIENT: BETSY PERRY UNIT: [id number] ADM DATE: 08/27/20 AGE: 55 : 61 SEX: F ROOM/BED: D.2227 AUTHOR: ANNA,DOC PHYSICIAN: REFERRING PHYSICIAN: RAFA ROSE MD DATE OF SERVICE: 09/04/20 Case Management Discharge Planning Summary CT Patient Name: BETSY PERRY Attending MD : RAFA ORDAZ Medical Record: [id number] Encounter : [id number] Facility : [address] [place] [address] Medical Admission Date : 118:17 Center Discharge Date : [address] [place] [address] Date of : DC Plan ID : [id number] Age/Sex/Martia : 55/ F/S Printed on : 09/04/20 16:47 CT DCP Review Details Anticipated D/C: Expected LOS : Case Status : INITIATED - Initial Reviewe: [id number] - Sydnie Regan Initial Review: 08/27/2020 Planned Disposi: - Final Discharge: - Final Reviewer : : Final Review : Comments CT Entered Date Type Reviewer 09/04/20 16:44 CT Discharge Planning Sydnie Regan Comment CM met with patient at bedside after obtaining verbal consent. CM discussed availability / needs of home health, REHAB and medical equipment. Patient declines need for home health. Declination for home health signed. Patient sister at bedside and will transport home. IMM signed and copy on chart. CM to follow and assist as needed. DCP Focus Questions & Answers DCP Evaluation Patient and/or caregiver agree upon recommended Yes discharge plan? Family / Caregiver's ability to cope with chronic a. Adequate (ability to meet patient's illness: medical needs, ensures patient attends medical appts.) Patient's current cognitive status: *Oriented to person, place, situation, time and present Patient's ability to cope with chronic illness d. No chronic illness Does the patient have the ability to pay for or Yes attain post discharge needs / services? Functional screen assessment: No issues identified Physical Status: Mobility impaired Equipment needed for post hospitalization: None Is there a likelihood that the patient will No require additional services to return to the preadmission environment? Living Arrangements: Home Alone with Support Results of this evaluation have been discussed Patient with: Patient with capacity for self-care or can be Yes cared for in same environment as prior to hospitalization? Baseline cognitive status: *Oriented to person, place, situation, time and present Physical environment modification needed / No anticipated for discharge: Comments: Patient's sister is here to transport home. Patient may stay with her mother for several days. Planned post hospital services available for N/A patient? Planned post hospital services covered by N/A insurance plan? Does Patient have transportation to get home and Yes to follow-up medical appointments when discharged from the hospital? Would patient like to participate in any Care Not applicable Coordination programs (if applicable): Does the patient have electricity at home? Yes Does the patient have running water in their Yes house? Other Equipment comments: [employer] [place] [employer] Mental health screen: No mental health history Resources / Services in place: None Problems identified by the patient regarding NONE discharge: DCP Re-evaluation Would patient like to participate in any Care Not applicable Coordination programs (if applicable): [facility] BETSY PERRY MR#: [id number] /Age/Sex/[id number]-28 /55/F /S Attending Physician Name: RAFAEL ROSE [id number] Patient Account:[id number] [facility] Page -1 of 1 All edits/amendments must be made on the electronic document DICTATION DATE: 09/04/201646 RECYCLING COORDINATOR: JOANIE 09/04/201646 RPT#: [id number] DC DATE: STATUS: ADM IN [facility] [address] [place] [address] END OF REPORT
--- NOTE | 2020-09-04 17:03 | NUR ---
DISCHARGE INSTRUCTIONS PROVIDED WITH UNDERSTANDING VERBALIZED.
--- NOTE | 2020-09-04 17:11 | NUR ---
TRANSPORTED TO [facility] PER STAFF.
--- NOTE | 2020-09-05 08:32 | MORECARE ---
CASE MANAGEMENT DISCHARGE SUMMARY PATIENT: BETSY PERRY UNIT: [id number] ADM DATE: 08/27/20 AGE: 55 : 61 SEX: F ROOM/BED: D.2227 AUTHOR: ANNA,DOC PHYSICIAN: REFERRING PHYSICIAN: RAFA ROSE MD DATE OF SERVICE: 09/05/20 Case Management Discharge Planning Summary CT Patient Name: BETSY PERRY Attending MD : RAFA ORDAZ Medical Record: [id number] Encounter : [id number] Facility : [address] [place] [address] Admission Date : 118:17 Center Discharge Date : 09/04/2020 [facility] [place] [address] Date of : DC Plan ID : [id number] Age/Sex/Martia : 55/ F/S Printed on : 09/05/20 8:31 CT DCP Review Details Anticipated D/C: Expected LOS : Case Status : INITIATED - Initial Reviewe: [id number] - Sydnie Regan Initial Review: 08/27/2020 Planned Disposi: - Final Discharge: - Final Reviewer : : Final Review : Comments CT Entered Date Type Reviewer 09/04/20 16:44 CT Discharge Planning Sydnie Regan Comment CM met with patient at bedside after obtaining verbal consent. CM discussed availability / needs of home health, REHAB and medical equipment. Patient declines need for home health. Declination for home health signed. Patient sister at bedside and will transport home. IMM signed and copy on chart. CM to follow and assist as needed. DCP Focus Questions & Answers DCP Evaluation Patient and/or caregiver agree upon recommended Yes discharge plan? Family / Caregiver's ability to cope with chronic a. Adequate (ability to meet patient's illness: medical needs, ensures patient attends medical appts.) Patient's current cognitive status: *Oriented to person, place, situation, time and present Patient's ability to cope with chronic illness d. No chronic illness Does the patient have the ability to pay for or Yes attain post discharge needs / services? Functional screen assessment: No issues identified Physical Status: Mobility impaired Equipment needed for post hospitalization: None Is there a likelihood that the patient will No require additional services to return to the preadmission environment? Living Arrangements: Home Alone with Support Results of this evaluation have been discussed Patient with: Patient with capacity for self-care or can be Yes cared for in same environment as prior to hospitalization? Baseline cognitive status: *Oriented to person, place, situation, time and present Physical environment modification needed / No anticipated for discharge: Comments: Patient's sister is here to transport home. Patient may stay with her mother for several days. Planned post hospital services available for N/A patient? Planned post hospital services covered by N/A insurance plan? Does Patient have transportation to get home and Yes to follow-up medical appointments when discharged from the hospital? Would patient like to participate in any Care Not applicable Coordination programs (if applicable): Does the patient have electricity at home? Yes Does the patient have running water in their Yes house? Other Equipment comments: [employer] Mental health screen: No mental health history Resources / Services in place: None Problems identified by the patient regarding NONE discharge: DCP Re-evaluation Would patient like to participate in any Care Not applicable Coordination programs (if applicable): [facility] BETSY PERRY MR#: [id number] /Age/Sex/Rsuobl57-Gwz-56 /55/F /S Attending Physician Name: SOHATRACIERAFAEL [id number] Patient Account:[id number] [facility] Page -1 of 1 All edits/amendments must be made on the electronic document DICTATION DATE: 09/05/20829 METAL CANS SUPERVISOR: JOANIE 09/05/20829 RPT#: [id number] DC DATE:09/04/20 STATUS: DIS IN [address] [place] [address] END OF REPORT
== END 2020-09-04 17:11 | disposition home or self-care (01) | DRG 354 ==
LOC: D.OPS 07:44 → D.MS 17:41 → D.OPS 18:16 → D.MS 18:17
PROVIDERS: ADMIT Surgery; ATTEND Surgery
PROC: 0WUF0JZ Supplement Abdominal Wall with Synthetic Substitute, Open Approach (ICD-10-PCS; principal; 2020-08-27 10:00)
DX: K43.0 Incisional hernia with obstruction, without gangrene (principal); F11.20 Opioid dependence, uncomplicated; J44.9 Chronic obstructive pulmonary disease, unspecified; I10 Essential (primary) hypertension; E03.9 Hypothyroidism, unspecified; E78.5 Hyperlipidemia, unspecified; M79.7 Fibromyalgia